=== PATIENT | male | born 1950 | race Caucasian/White ===

== ENCOUNTER 2018-03-31 23:34 | Inpatient (IN) ==
[~2018-03-31 23:34] MED LIST: Sodium Bicarbonate 8.4% Inj 50 MEQ/50 ML Syringe IV.CONT ONE
[2018-04-01 02:07] LABS: ABG Base Excess -6.4 mmol/L (-2-2); ABG PCO2 41 mmHg (38-42); ABG PO2 178 mmHG (61-120)
[2018-04-01] MEDS ORDERED: Bisacodyl 10 MG Supp RECTAL PRN (02:59)
[2018-04-01] MEDS ORDERED: fentaNYL Citrate Inj 100 MCG/2 ML Ampul IV PUSH PRN (02:59)
--- NOTE | 2018-04-01 03:10 | P.HPCC ---
History of Present Illness Service: Critical care medicine Primary Care Physician: UNKNOWN Chief Complaint: Cardiac arrest History of Present Illness: 67-year-old Hungarian-speaking male with past medical history of hemorrhagic stroke, essential hypertension, hyperlipidemia, GERD, iron deficiency anemia, depression who presented to [facility] after V. fib cardiac arrest. Apparently he was found unresponsive at the correction and CPR was initiated. He was in V. fib upon [facility] arrival. Per report from ED physician, patient received 5 doses of epinephrine and at least 5 shocks per [facility] and amiodarone 300 mg IV bolus. Upon arrival to the [place] emergency department, he remained in V. fib and was given 2 doses of epinephrine 5 mg IV each, amiodarone 100 mg IV, and additional defibrillation. He then had return of spontaneous circulation. He had an additional cardiac arrest in the emergency department which again responded to epinephrine. Transferred to [facility] was requested. I was informed that total duration of ACLS was 40 minutes. He was placed on epinephrine and phenylephrine prior to transfer. Records indicate that he has been a resident at [facility] since and that he was transferred there from another correction facility. He is wheelchair-bound at baseline. Records indicate that he is full code. There is no detailed advanced directive. - Diagnosis (1) Intracerebral hemorrhage (2) Respiratory failure (3) Ischemic hepatitis (4) LARS (acute kidney injury) (5) Coagulopathy (6) Hypernatremia (7) Hypokalemia (8) Hypophosphatemia (9) Cardiac arrest with ventricular fibrillation (10) Anoxia of brain Inpatient Certification: I certify that the inpatient services were ordered in accordance with Medicare regulations governing the order. This includes certification that hospital inpatient services are reasonable and necessary and in the case of services not specified as inpatient-only under 42 CFR 419.22(n), that they are appropriately provided as inpatient services in accordance to with the 2-midnight benchmark under 43 CFR 412.3(e) Estimated Total Length of Stay (Days): 7 Plans for Post Hospital Care: Not yet determined Review of Systems All other systems reviewed negative except as stated in HPI PMFSH - History History Provided By: Medical Record - Medical / Surgical Hx Neg / Unobtainable Surgical History: Unable to Obtain - Medical History Medical History: Medical History (Last Updated 04/01/18 @ 03:27 by Estefania Caputo MD) Depression GERD (gastroesophageal reflux disease) HLD (hyperlipidemia) HTN (hypertension) Iron deficiency anemia CVA (cerebral vascular accident) - Family History Family History: Family History (Last Updated 04/01/18 @ 03:27 by Estefania Caputo MD) Other Family history unobtainable due to patient's condition - Tobacco History Smoking Status: Unknown if ever smoked Medications and Allergies Active Medications: Active Medications Al Hydroxide/Mg Hydroxide (Milk Of Magnesia Liq) 30 ml PO Q12H PRN PRN Reason: Mild Constipation Albuterol (Albuterol Neb (Wendy)) 2.5 mg NEB Q2HR NEB PRN PRN Reason: SHORTNESS OF BREATH/WHEEZING Bisacodyl (Dulcolax Supp) 10 mg RECTAL DAILY PRN PRN Reason: SEVERE CONSITIPATION Chlorhexidine Gluconate (Chlorhexidine 2% Cloth) 3 pack TOPICAL DAILY@0400 WENDY Stop: 04/06/18 03:59 Chlorhexidine Gluconate (Chlorhexidine 2% Cloth) 3 pack TOPICAL DAILY@0400 PRN PRN Reason: Extra cloth needed Stop: 04/06/18 03:59 Fentanyl Citrate (Fentanyl Inj) 50 mcg IV PUSH Q1H PRN PRN Reason: Pain scale 6-10, &/or sedation Phenylephrine HCl 160 mg/ (Sodium Chloride) 500 mls @ 7.5 mls/hr IV.CONT TITRATE PRN; Protocol PRN Reason: Per Protocol Epinephrine HCl 4 mg/ Dextrose 250 mls @ 11.25 mls/hr IV.CONT TITRATE PRN; Protocol PRN Reason: Per Protocol Amiodarone HCl 450 mg/ (Dextrose) 250 mls @ 33.33 mls/hr IV.CONT TITRATE PRN; Protocol PRN Reason: Per Protocol Lactulose (Lactulose Liq) 30 ml PO DAILY PRN PRN Reason: SEVERE CONSITIPATION Ondansetron HCl (Zofran Inj) 4 mg IV.PUSH Q6H PRN PRN Reason: NAUSEA OR VOMITING Pantoprazole Sodium (Protonix Inj) 40 mg IV.PUSH DAILY WENDY Senna/Docusate Sodium (Barbara-Colace) 1 tab PO BID WENDY Sennosides (Senokot) 17.2 mg PO Q12H PRN PRN Reason: Moderate Constipation Sodium Chloride (Ns Flush) 2 ml IV.FLUSH BID WENDY Sodium Chloride (Ns Flush) 2 ml IV.FLUSH PRN PRN PRN Reason: FLUSH AFTER USING IV ACCESS Terbutaline Sulfate (Brethine Inj) 1 mg SQ UNSCH PRN PRN Reason: For Extravasation Allergies Allergy/AdvReac Type Severity Reaction Status Date / Time No Known Allergies Allergy Verified 03/31/18 23:56 Results - Labs CBC & Chem 7: 04/01/18 02:37 04/01/18 02:37 Exam Narrative: GENERAL: Thin well-developed male who is intubated. He has no sedative medication administration documented. SKIN: cool, dry. HEAD: Atraumatic. Normocephalic. EYES: Pupils fixed, dilated. No scleral icterus. No injection or drainage. ENT: No nasal bleeding or discharge. Mucous membranes dry. NECK: Trachea midline. Unable to appreciate JVD, patient has EJ catheters. CARDIOVASCULAR: Regular rate and rhythm, sinus with rate in the 90s on the monitor. No murmurs rubs or gallops. RESPIRATORY: Orotracheally intubated with 7.5 endotracheal tube. Coarse bilateral breath sounds with basilar rales GASTROINTESTINAL: Abdomen soft, non-tender, nondistended. Bowel sounds hypoactive. : Cuevas MUSCULOSKELETAL: Extremities without clubbing, cyanosis, or edema. NEUROLOGICAL: No eye opening. No motor response to deep central or peripheral noxious stimuli. No corneal reflex. No cough. No gag. No oculocephalic reflex. Disconnected from mechanical ventilation and he has no spontaneous respiratory efforts. Caprini VTE Risk Assessment Caprini VTE Risk Assessment: Moderate/High Risk (score >= 2) Caprini Risk Assessment Model: Point Value = 1 Point Value = 2 Point Value = 3 Point Value = 5 Age 41-60 Minor surgery BMI > 25 kg/m2 Swollen legs Varicose veins or History of unexplained or recurrent spontaneous Oral contraceptives or hormone replacement Sepsis (< 1 month) Serious lung disease, including pneumonia (< 1 month) Abnormal pulmonary function Acute myocardial infarction Congestive heart failure (< 1 month) History of inflammatory bowel disease Medical patient at bed rest Age 61-74 Arthroscopic surgery Major open surgery (> 45 min) Laparoscopic surgery (> 45 min) Malignancy Confined to bed (> 72 hours) Immobilizing plaster cast Central venous access Age >= 75 History of VTE Family history of VTE Factor V Leiden Prothrombin [id number] Lupus anticoagulant Anticardiolipin antibodies Elevated serum homocysteine Heparin-induced thrombocytopenia Other congenital or acquired thrombophilia Stroke (< 1 month) Elective arthroplasty Hip, pelvis, or leg fracture Acute spinal cord injury (< 1 month) Prophylaxis Regimen: Total Risk Factor Score Risk Level Prophylaxis Regimen 0-1 Low Early ambulation 2 Moderate Order ONE of the following: *Sequential Compression Device (SCD) *Heparin 5000 units SQ BID 3-4 Higher Order ONE of the following medications: *Heparin 5000 units SQ TID *Enoxaparin/Lovenox 40 mg SQ daily (WT < 150 kg, CrCl > 30 mL/min) *Enoxaparin/Lovenox 30 mg SQ daily (WT < 150 kg, CrCl > 10-29 mL/min) *Enoxaparin/Lovenox 30 mg SQ BID (WT < 150 kg, CrCl > 30 mL/min) AND/OR *Sequential Compression Device (SCD) 5 or more Highest Order ONE of the following medications: *Heparin 5000 units SQ TID (Preferred with Epidurals) *Enoxaparin/Lovenox 40 mg SQ daily (WT < 150 kg, CrCl > 30 mL/min) *Enoxaparin/Lovenox 30 mg SQ daily (WT < 150 kg, CrCl > 10-29 mL/min) *Enoxaparin/Lovenox 30 mg SQ BID (WT < 150 kg, CrCl > 30 mL/min) AND *Sequential Compression Device (SCD) Assessment and Plan - Problem List (1) Intracerebral hemorrhage Code(s): I61.9 - Nontraumatic intracerebral hemorrhage, unspecified Status: Acute (2) Respiratory failure Code(s): J96.90 - Respiratory failure, unspecified, unspecified whether with hypoxia or hypercapnia Status: Acute (3) Ischemic hepatitis Code(s): K75.9 - Inflammatory liver disease, unspecified Status: Acute (4) LARS (acute kidney injury) Code(s): N17.9 - Acute kidney failure, unspecified Status: Acute (5) Coagulopathy Code(s): D68.9 - Coagulation defect, unspecified Status: Acute (6) Hypernatremia Code(s): E87.0 - Hyperosmolality and hypernatremia Status: Acute (7) Hypokalemia Code(s): E87.6 - Hypokalemia Status: Acute (8) Hypophosphatemia Code(s): E83.39 - Other disorders of phosphorus metabolism Status: Acute (9) Cardiac arrest with ventricular fibrillation Code(s): I46.9 - Cardiac arrest, cause unspecified; I49.01 - Ventricular fibrillation Status: Acute (10) Anoxia of brain Code(s): G93.1 - Anoxic brain damage, not elsewhere classified Status: Acute - Assessment and Plan Plan: NEURO: Cerebellar and intraventricular hemorrhage Hydrocephalus Cerebral anoxia History of hemorrhagic stroke Depression Nonambulatory at baseline Nonsurvivable intracerebral hemorrhage resulting in cardiac arrest. While clinical exam appears consistent with brain , he is currently hypothermic and must be rewarmed to at least 36 degrees to do formal evaluation. Then proceed with Nuclear brain flow study as he does not appear stable enough for apnea testing. Neurology consult to assist with brain determination. RESP: Acute respiratory failure Pulmonary edema PRVC, PEEP 10. Ventilator Bundle. Albuterol every 2 hours as needed CV: V. fib cardiac arrest Essential hypertension at baseline Hyperlipidemia Epinephrine drip, phenylephrine drip to maintain MAP >65. On pulse contour analysis, CI is 1.7 and SVR >2400. Will wean phenylephrine off. Has received a total of Amiodarone 450 mg IV a bolus at outside facility. Continue amiodarone drip Check electrolytes and replace as indicated. Serial lactic acid measurement. Obtain 2D echo GI: Ischemic hepatitis GERD Insert OG tube in place to low and minimal suction. Protonix 40 mill grams IV daily Bowel regimen Viral hepatitis panel FEN/RENAL: Acute anion gap metabolic acidemia secondary to lactic acidemia Acute kidney injury Hypernatremia Hypokalemia Hypophosphatemia Insert core temp cuevas. Monitor intake and output. Monitor electrolytes and replace as indicated per ICU electrolyte replacement protocol. Hypernatremic, Monitor for evidence of diabetes insipidus ID: Monitor for signs and symptoms of infection HEME: Coagulopathy No clinical indication to correct coagulopathy as patient has nonsurvivable ICH and otherwise no clinical evidence of bleeding. ENDO: Acute hyperglycemia Insulin drip algorithm #3. PROPH: SCDs for DVT prophylaxis. Protonix 40 mg IV daily for stress ulcer prophylaxis and history of GERD ACCESS: Right radial art line placed 04/01 #1. Left IJ central venous line placed 04/01 #1 I spoke with patient's brother, Xu Lynch, who states that he is the healthcare surrogate. I discussed with him that patient has non-survivable intracerebral hemorrhage and that brain is suspected. He states his brother wished to be FULL CODE and he wishes to continue FULL CODE status at this time but would like to come to the hospital and speak to us in person. FULL CODE. Patient is critically ill and arrived with profound hypotension with blood pressure 60s over 40s. He required emergent art line and central line placement as well as resuscitation and management of mechanical ventilation. His vasopressor requirements are now improving. CCT 60 minutes exclusive of separately billable procedures
--- NOTE | 2018-04-01 03:12 | P.PCN ---
Date of procedure: 04/01/18 Procedure: DATE: 04/01/18 PROCEDURE: Right radial arterial catheter placement INDICATION: Shock DETAILS OF PROCEDURE Damian test was performed and adequate collateral circulation was confirmed. The skin was cleansed with Chloraprep. Additional barrier precautions included large sterile drape, sterile gloves, sterile gown, face mask, and hat. On the first attempt, the artery was accessed with an Arrow radial art line kit. The guide wire was advanced. Using Seldinger technique 20 gauge arterial catheter was placed. The needle and guide wire apparatus was removed. The catheter was connected to a transducer line and flushed with saline. The video monitor displayed normal arterial wave forms. The catheter was secured with 2-0 silk. A sterile dressing with antibiotic disc was applied. ESTIMATED BLOOD LOSS: minimal COMPLICATIONS: None
--- NOTE | 2018-04-01 03:14 | P.PCN ---
Date of procedure: 04/01/18 Procedure: DATE: 04/01/18 CENTRAL LINE PLACEMENT: Left internal jugular vein. INDICATION: Central venous access CONSENT Patient is not capacitated for medical decision-making. Procedure was done emergently as patient is in profound shock and in need of central venous access. DESCRIPTION OF THE PROCEDURE The patient was placed in supine position, mild Trendelenburg. The skin was cleansed with Chloraprep with wide prep of left subclavian and left IJ site. Additional barrier precautions included large sterile drape, sterile gloves, sterile gown, face mask, and hat. 1 % lidocaine was used for local anesthesia. Initial attempt at left subclavian site was unsuccessful x2. Under direct ultrasound guidance and on single attempt, the left IJ vein was accessed with an introducer needle. The guide wire was advanced and the tract was dilated. Using Seldinger technique a 7 Czech 20 cm antimicrobial coated triple-lumen catheter was advanced to a depth of 18 centimeters. The guide wire was removed. All ports had good return of dark venous blood and flushed easily with saline. The central line was secured with 2.0 silk. A sterile dressing with antibiotic disc was applied. ESTIMATED BLOOD LOSS: Minimal COMPLICATIONS: No apparent complications. STAT chest x-ray demonstrates satisfactory central venous line position without apparent complication.
[2018-04-01 03:24] LABS: Hematocrit 42.9 % (39.0-51.0); Hemoglobin 13.9 gm/dL (13.0-17.0); Mean Corpuscular HGB Conc 32.5 % (32.0-36.0); Mean Corpuscular Hemoglobin 29.6 pg (27.0-34.0); Mean Corpuscular Volume 91.1 fL (80.0-100.0); Mean Platelet Volume 7.9 fL (7.0-11.0); Platelet Count 182 th/mm3 (150-450); Red Blood Count 4.71 mil/mm3 (4.50-5.90); Red Cell Distribution Width 15.7 % (11.6-17.2); White Blood Count 11.5 th/mm3 (4.0-11.0)
[2018-04-01 03:36] LABS: Activated Partial Thrombo Time 33.7 sec (23.4-31.7); INR 1.7 Ratio; Prothrombin Time 17.1 sec (9.8-11.6)
[2018-04-01] MEDS ORDERED: Atropine Inj 1 MG/10 ML Syringe ONE (03:41)
--- NOTE | 2018-04-01 03:42 | XR ---
EXAM DATE: 04/01/2018 3:36 AM EST AGE/SEX: 67 years / Male INDICATIONS: Left internal jugular central line placement. CLINICAL DATA: This is the patient's subsequent encounter. Patient reports that signs and symptoms h ave been present for 1 day and indicates a pain score of Nonresponsive. MEDICAL/SURGICAL HISTORY: Non-responsive. Non-responsive. COMPARISON: [facility], CHEST 1V SINGLE AP, 04/01/2018. . FINDINGS: A single AP view of the chest demonstrates the lungs to be symmetrically aerated with persistent bila teral airspace disease. Endotracheal tube remains appropriately positioned above the rom. Interval placement of a left IJ central venous catheter with the tip projecting over the central venous syste m. No pneumothorax. Heart size is normal. Osseous structures are intact. CONCLUSION: 1. Interval placement of a left IJ central venous catheter with the tip projecting over the central venous system. No pneumothorax. 2. Persistent bilateral prominent perihilar airspace disease. Electronically signed by: Gabriel Wyatt MD Board Certified Radiologist 04/01/2018 3:41 AM EST
[2018-04-01 03:50] LABS: Albumin 2.9 g/dL (3.4-5.0); Calcium 7.3 mg/dL (8.5-10.1); Carbon Dioxide 21.4 meq/L (21.0-32.0); Phosphorus 1.9 mg/dL (2.5-4.9)
[2018-04-01 03:53] LABS: Potassium 2.3 meq/L (3.5-5.1)
[2018-04-01] MEDS ORDERED: Chlorhexidine Gluconate 2% 1 Pack (2 Cloths) TOPICAL PRN (04:00)
[2018-04-01 04:23] LABS: Troponin I 3.29 ng/mL (0.02-0.05)
[2018-04-01] MEDS: Oral Hygiene Kit OROPHARYNG SCH ×3 (04:28→15:40)
[2018-04-01] MEDS ORDERED: Magnesium Sulfate Inj 2 GM in Sodium Chlor 0.9% Inj 96 ML IV.SIG PRN (04:40)
[2018-04-01] MEDS ORDERED: Potassium Chloride Liq 20 MEQ/15 ML UDC PO PRN ×2 (04:40)
[2018-04-01] MEDS ORDERED: Potassium Chlor 40 mEq Premix 40 MEQ/100 ML PIGGYBACK IV.SIG PRN ×2 (04:40)
[2018-04-01] MEDS ORDERED: Potassium Chlor 20 mEq Premix 20 MEQ/100 ML PIGGYBACK IV.SIG PRN ×2 (04:40)
[2018-04-01] MEDS ORDERED: Potassium Phosphate 500 MG Soluble Tablet PO PRN ×2 (04:40)
[2018-04-01] MEDS ORDERED: Magnesium Sulfate Inj 4 GM in Sodium Chlor 0.9% Inj 92 ML IV.SIG PRN (04:40)
[2018-04-01] MEDS ORDERED: Magnesium Oxide 400 MG Tablet PO PRN (04:40)
[2018-04-01] MEDS ORDERED: Sodium Phosphate Inj 30 MMOL in Sodium Chlor 0.9% Inj 250 ML IV.SIG PRN (04:40)
[2018-04-01] MEDS ORDERED: Dextrose 50% in Water 50 ML Vial IV.PUSH PRN (04:41)
--- NOTE | 2018-04-01 07:05 | CT ---
EXAM DATE: 04/01/2018 4:03 AM EST AGE/SEX: 67 years / Male INDICATIONS: Altered mental status; possible cerebral anoxia. CLINICAL DATA: This is the patient's initial encounter. Patient reports that signs and symptoms have been present for 1 day and indicates a pain score of Nonresponsive. MEDICAL/SURGICAL HISTORY: Congestive heart failure. Cerebrovascular disease. None. RADIATION DOSE: 56.35 CTDI (mGy) COMPARISON: . TECHNIQUE: CT of the head without contrast. Using automated exposure control and adjustment of the mA and/or kV according to patient size, radiation dose was kept as low as reasonably achievable to ob tain optimal diagnostic quality images. DICOM format image data is available electronically for revi ew and comparison. FINDINGS: Cerebrum: Ventricles are enlarged with a large amount of intraventricular blood. Some subarachnoid b lood is also present. Complete loss of teresa-white differentiation probably representing diffuse anoxi a. Periventricular edema.. Posterior Fossa: Again, large amount of intraventricular blood. Parenchymal hemorrhages centered on t he left cerebellar hemisphere Skull: The calvaria is intact. No evidence of skull fracture. Air-fluid level in the left sphenoid as well as in the nasopharynx may be related to intubation. CONCLUSION: 1. 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 Small amount of subarachnoid hemorrhage. Associated ventriculomegaly. 2. Periventricular edema with loss of the teresa-white differentiation may be related to diffuse anoxi a. . . Electronically signed by: Gabriel Wyatt MD Board Certified Radiologist 04/01/2018 4:55 AM EST
[2018-04-01 07:13] LABS: Hepatitits B Surface Antigen Nonreactive (Nonreactive)
[2018-04-01] MEDS: Chlorhexidine Gluconate 2% 1 Pack (2 Cloths) TOPICAL SCH (07:27)
[2018-04-01] MEDS: Phenylephrine Inj 160 MG in Sodium Chlor 0.9% Inj 484 ML IV.CONT PRN ×2 (07:33→19:42)
[2018-04-01] MEDS: Potassium Phosphate Inj 30 MMOL in Sodium Chlor 0.9% Inj 250 ML IV.SIG PRN ×2 (07:34→16:51)
[2018-04-01 07:42] LABS: Hepatitis A IgM Antibody Nonreactive (Nonreactive)
[2018-04-01] MEDS: Insulin Regular (For Infusion) 100 UNIT in Sodium Chlor 0.9% Inj 99 ML IV.CONT PRN ×2 (07:53→14:55)
[2018-04-01] MEDS: Chlorhexidine 0.12% Oral Kit 15 ML UDC OROPHARYNG SCH ×2 (08:59→20:55)
--- NOTE | 2018-04-01 09:08 | MB ---
cc: Vargas Rios MD, PhD DATE: 04/01/2018 REASON FOR CONSULTATION: Cerebral hemorrhage. HISTORY OF PRESENT ILLNESS: Mr. Maradiaga is a 67-year-old man who presented to [facility] after ventricular fibrillation cardiac arrest. He was found unresponsive at the detention and CPR was initiated. When he [facility] arrived, he was in ventricular fibrillation treated with ACLS protocol and amiodarone. When he arrived at the [facility], he was in VFib, received additional defibrillation, epinephrine, and amiodarone and return to spontaneous circulation. He had a CT of the brain done, which revealed extensive cerebral hemorrhage with intraparenchymal hemorrhage in the left cerebellar hemisphere with extension into the ventricular system as well as secondary hydrocephalus. There is also periventricular edema with loss of teresa-white differentiation possibly related to diffuse anoxia. Some subarachnoid blood was also identified. PAST MEDICAL HISTORY: Remarkable for history of hemorrhagic stroke in the past, hypertension, hyperlipidemia, GERD, iron deficiency anemia. CURRENT MEDICATIONS: Albuterol nebs amiodarone, Dulcolax, chlorhexidine, Fentanyl p.r.n., lactulose, Zofran, Protonix, phenylephrine potassium p.r.n. NEUROLOGIC EXAMINATION: VITAL SIGNS: His blood pressure is 96/73, pulse is 97, he is not breathing over the ventilator at all, currently intubated. Temperature 93.7 degrees. HIGHER CORTICAL FUNCTION: He is nonresponsive to voice or painful stimuli. Cranial nerve exam: The pupils are 4 mm bilaterally, nonreactive to light. Corneal reflexes are absent. On assessing oculocephalic maneuver, there is no significant eye movement to oculocephalics. Cold caloric testing was done bilaterally with absolutely no response. Gag is absent. Ciliospinal reflex is absent. On motor exam, he has no withdrawal to painful stimuli, no localization to pain. He had occasional [id number] head movement with painful stimuli, which appear to be mainly reflexic and not volitional at all. He has bilateral Babinski's. IMAGING DATA: CT of the brain as noted above. LABORATORY DATA: The white count is 11,500, hemoglobin 13.9, hematocrit 42.9%, platelet count 182,000. Sodium is 148, potassium 2.3, chloride 111, CO2 of 21.4, BUN is 13, creatinine 1.55, GFR 45, glucose 452, calcium 7.3, AST 1589, ALT 1540, alkaline phosphatase 106, albumin 2.9. Lactic acid 11.2. ABG; pH of 7.29, O2 saturation 97%, pO2 of 178, bicarbonate 19, pCO2 of 41. IMPRESSION: Extensive intraventricular hemorrhage which appears to arise from the cerebellum with extensive intraventricular involvement and subarachnoid component as well as anoxic encephalopathy. At this time, I do not find any significant brainstem reflexes on his examination. RECOMMENDATION: Prognosis is extremely poor given the patient's clinical exam. We will proceed with EEG testing. Vargas Rios MD, PhD NOE/chacha , 08:35 AM , 08:45 AM
[2018-04-01] MEDS: Pantoprazole Inj 40 MG Vial IV.PUSH SCH (10:29)
--- NOTE | 2018-04-01 12:54 | MG ---
cc: Vargas Rios MD, PhD TEST NUMBER: [id number] TECHNIQUE: A 17-channel EEG. DESCRIPTION: The background activity is basically silent. There is some minimal activity initially of extremely low amplitude of about 1 microvolts, but the remaining of the tracing is silent. Photic stimulation was done with no significant driving response. No lateralizing features seen. No epileptiform discharges. INTERPRETATION: Extremely abnormal study with a severely attenuated and for the most part silent tracing consistent with severe encephalopathy. Vargas Rios MD, PhD NOE/constantino , 12:35 PM , 12:41 PM
[2018-04-01] MEDS: Senna/Docusate Sodium 8.6/50 MG Tablet PO SCH ×2 (13:24→23:55)
--- NOTE | 2018-04-01 15:27 | P.EN ---
I had a long conversation with the patient's brother and [id number] today regarding Javier's condition. We spoke using the video translation service. I explained that Javier has a large amount of bleeding around his brainstem and has sustained a prolonged cardiac arrest. We discussed that his neurological exam is very abnormal, and that I do not feel that he has any reasonable chance to have a functionally independent recovery. We discussed several options moving forward, including 1) aggressive care, including trach/ PEG if patient is stable enough for procedures, and I explained that he will be dependent on "life support" including a ventilator indefinitely; 2) continued current care with no escalation; 3) transition to comfort care. The patient's brother says that the only conversation they've had in the past regarding end of life care was that Javier wanted his brother to make decisions for him. His brother and [id number] would like to discuss these options before making any decisions on goals of care. The patient remains a full code at this time. I have consulted palliative care to help with ongoing discussions.
--- NOTE | 2018-04-01 15:44 | ECG ---
Date Performed: 04/01/2018 Time Performed: 02:52:40 PTAGE: 67 years EKG: Sinus rhythm . Possible left ventricular hypertrophy Inferior/lateral ST-T changes are probably due to ventricular hypertrophy Abnormal ECG Compared to PREVIOUS TRACING , rate has increased with some normalization of QRS, but persistent ST s egment depression. Could be due to hypertrophy. Cannot rule out ischemia, clinical correlation recomm ended. PREVIOUS TRACIN04/01/2018 00.07.54 DOCTOR: Jose Lyles Interpretating Date/Time 04/01/2018 15:42:25
[2018-04-01 16:16] LABS: Phosphorus 0.7 mg/dL (2.5-4.9)
[2018-04-01 16:18] LABS: Potassium 2.5 meq/L (3.5-5.1)
--- NOTE | 2018-04-01 16:31 | P.PNPAL ---
pt seen in room, unresponsive on vent. D/w RN, d/w Dr Carlton. Called relative Xu Lynch. He understands some basic Belgian but is more comfortable speaking Bangladeshi. In Bangladeshi he told me he had talked with a doctor already who explained things to him. He is agreeable to meet tomorrow around 11 or 12.
--- NOTE | 2018-04-01 17:49 | ECHRPT ---
Indication: shortness of breath CONCLUSIONS The left ventricular systolic function is severely reduced with an estimated ejection fraction in th e range of 20-25%. There is global left ventricular dysfunction. Akinetic mid-anterior septal wall motion. There is mild tricuspid valve regurgitation. BP: / HR: Rhythm: MEASUREMENTS (Male / Female) Normal Values Technical Quality:Very technically difficult study 2D ECHO LV Diastolic Diameter PLAX 2.6 cm 4.2 - 5.9 / 3.9 - 5.3 cm LV Systolic Diameter PLAX 2.4 cm IVS Diastolic Thickness 0.7 cm 0.6 - 1.0 / 0.6 - 0.9 cm LVPW Diastolic Thickness 1.1 cm 0.6 - 1.0 / 0.6 - 0.9 cm LV Relative Wall Thickness 0.7 RV Internal Dim ED PLAX 1.7 cm LVOT Diameter 1.5 cm Aortic Root Diameter 2.0 cm LA Systolic Diameter LX 1.8 cm 3.0 - 4.0 / 2.7 - 3.8 cm M-MODE Aortic Root Diameter MM 3.2 cm LA Systolic Diameter MM 2.5 cm LA Ao Ratio MM 0.8 AV Cusp Separation MM 1.8 cm DOPPLER AV Peak Velocity 160.0 cm/s AV Peak Gradient 10.2 mmHg LVOT Peak Velocity 60.2 cm/s LVOT Peak Gradient 1.4 mmHg AV Area Cont Eq pk 0.7 cm Mitral E Point Velocity 51.3 cm/s Mitral A Point Velocity 34.6 cm/s Mitral E to A Ratio 1.5 TR Peak Velocity 267.0 cm/s TR Peak Gradient 28.5 mmHg Right Atrial Pressure 10.0 mmHg Pulmonary Artery Systolic Pressu 38.5 mmHg Right Ventricular Systolic Press 38.5 mmHg PV Peak Velocity 66.5 cm/s PV Peak Gradient 1.8 mmHg FINDINGS LEFT VENTRICLE Normal left ventricular size. Wall thickness is normal. The left ventricular systolic function is severely reduced with an estimated ejection fraction in th e range of 20-25%. There is global left ventricular dysfunction. Akinetic mid-anterior septal wall motion. RIGHT VENTRICLE Grossly normal LEFT ATRIUM The left atrial size is normal. RIGHT ATRIUM The right atrial size is normal. ATRIAL SEPTUM Normal atrial septal thickness AORTA The aortic root and proximal ascending aorta are normal in size on limited imaging. MITRAL VALVE Structurally normal mitral valve. No mitral valve stenosis or regurgitation. AORTIC VALVE Trileaflet aortic valve. No aortic valve stenosis or regurgitation. TRICUSPID VALVE Structurally normal tricuspid valve. There is mild tricuspid valve regurgitation. No tricuspid valve stenosis. PULMONARY VALVE No pulmonary valve regurgitation or stenosis. VESSELS The inferior vena cava is normal in size. PERICARDIUM No pericardial effusion. David Wilks DO (Electronically Signed) Final Date:01 April 2018 17:48
[2018-04-01] MEDS ORDERED: DOPamine Inj 1,600 MG in Sodium Chlor 0.9% Inj 210 ML IV.CONT PRN (20:17)
[2018-04-01 20:49] LABS: ABG Base Excess -5.5 mmol/L (-2-2); ABG PCO2 34 mmHg (38-42); ABG PO2 141 mmHg (61-120)
[2018-04-01] MEDS: Norepinephrine Inj 16 MG in Sodium Chlor 0.9% Inj 234 ML IV.CONT PRN (20:50)
[2018-04-02] MEDS: Oral Hygiene Kit OROPHARYNG SCH ×3 (00:59→11:20)
[2018-04-02 04:50] LABS: Baso % (Auto) 0.3 % (0.0-2.0); Eos # (Auto) 0.2 th/mm3 (0.0-0.4); Eos % (Auto) 1.8 % (0.0-4.0); Hematocrit 40.2 % (39.0-51.0); Hemoglobin 13.3 gm/dL (13.0-17.0); Lymph # (Auto) 3.5 th/mm3 (1.0-4.8); Lymph % (Auto) 27.9 % (9.0-44.0); Mean Corpuscular HGB Conc 33.2 % (32.0-36.0); Mean Corpuscular Hemoglobin 29.4 pg (27.0-34.0); Mean Corpuscular Volume 88.8 fL (80.0-100.0); Mean Platelet Volume 8.2 fL (7.0-11.0); Mono # (Auto) 0.5 th/mm3 (0.0-0.9); Mono % (Auto) 3.8 % (0.0-8.0); Neut # (Auto) 8.3 th/mm3 (1.8-7.7); Neut % (Auto) 66.2 % (16.0-70.0); Platelet Count 104 th/mm3 (150-450); Red Blood Count 4.53 mil/mm3 (4.50-5.90); Red Cell Distribution Width 15.5 % (11.6-17.2); White Blood Count 12.6 th/mm3 (4.0-11.0)
[2018-04-02 05:09] LABS: Activated Partial Thrombo Time 45.6 sec (23.4-31.7); Prothrombin Time 20.6 sec (9.8-11.6)
[2018-04-02 05:45] LABS: Albumin 2.1 g/dL (3.4-5.0); Calcium 6.7 mg/dL (8.5-10.1); Carbon Dioxide 19.3 meq/L (21.0-32.0); Magnesium 0.9 mg/dL (1.5-2.5); Phosphorus 3.9 mg/dL (2.5-4.9); Potassium 3.9 meq/L (3.5-5.1); Total Protein 4.8 g/dL (6.4-8.2)
[2018-04-02] MEDS: Chlorhexidine Gluconate 2% 1 Pack (2 Cloths) TOPICAL SCH (06:10)
--- NOTE | 2018-04-02 06:56 | P.PNCC ---
Subjective Subjective Remarks/Hospital Course: 67-year-old Bulgarian-speaking male with past medical history of hemorrhagic stroke, essential hypertension, hyperlipidemia, GERD, iron deficiency anemia, depression who presented to [facility] after V. fib cardiac arrest. Apparently he was found unresponsive at the [facility] and CPR was initiated. He was in V. fib upon [facility] arrival. Per report from ED physician, patient received 5 doses of epinephrine and at least 5 shocks per [facility] and amiodarone 300 mg IV bolus. Upon arrival to the [place] emergency department, he remained in V. fib and was given 2 doses of epinephrine 5 mg IV each, amiodarone 100 mg IV, and additional defibrillation. He then had return of spontaneous circulation. He had an additional cardiac arrest in the emergency department which again responded to epinephrine. Transferred to [facility] was requested. I was informed that total duration of ACLS was 40 minutes. He was placed on epinephrine and phenylephrine prior to transfer. Records indicate that he has been a resident at [facility] in [place] since and that he was transferred there from another [facility] facility. He is wheelchair-bound at baseline. Records indicate that he is full code. There is no detailed advanced directive. 04/02: Patient has intermittent movement of head back and forth which does not appear to be purposeful. Cold calorics were tested yesterday with neurologist and patient had no response. He continues to have no cough, gag, or corneal reflexes. He also continues to have persistent hypotension requiring multiple pressors. Family meeting scheduled for today with palliative care around 11 AM. Objective Vital Signs / I&O: Vital Signs 04/01/18 07:36 04/01/18 08:00 04/01/18 10:46 Temperature 93.7 F L Pulse Rate 94 H Respiratory Rate 20 20 20 Blood Pressure 96/73 L Pulse Oximetry 98 98 99 04/01/18 12:00 04/01/18 13:15 04/01/18 16:00 Temperature 99.2 F 99.6 F Pulse Rate 98 H 99 H Respiratory Rate 20 20 20 Blood Pressure 101/79 93/67 L Pulse Oximetry 99 99 04/01/18 16:55 04/01/18 20:00 04/01/18 20:30 Temperature 99 F Pulse Rate 99 H Respiratory Rate 20 20 21 Blood Pressure 89/63 L Pulse Oximetry 98 98 99 04/01/18 22:42 04/02/18 00:00 04/02/18 00:29 Temperature 98.3 F Pulse Rate 91 H Respiratory Rate 20 20 20 Blood Pressure 111/55 L Pulse Oximetry 99 98 98 04/02/18 03:40 04/02/18 04:00 Temperature 97.6 F Pulse Rate 90 84 Respiratory Rate 20 20 Blood Pressure 118/50 L Pulse Oximetry 98 98 Intake & Output 04/01/18 04/01/18 04/02/18 06:59 18:59 06:59 Intake Total 0 / 0 3860 / 3860 1250 / 1250 Output Total 2225 / 2225 900 / 900 160 / 160 Balance -2225 / -2225 2960 / 2960 1090 / 1090 Weight 63.5 kg 71 kg Intake: IV 2860 / 2860 1250 / 1250 Cordarone Inj 450 MG In D5W Inj 250 / 250 250 / 250 241 ML @ 1 MG/MIN 33.33 mls/hr IV.CONT TITRATE PRN Rx#: [id number] EPINEPHrine (1:1000) Inj 4 MG 250 / 250 500 / 500 In D5W Inj 246 ML @ 3 MCG/MIN 11.25 mls/hr IV.CONT TITRATE PRN Rx#:[id number] NovoLIN R (IV Infusion) 100 100 / 100 UNIT In NS Inj 99 ML @ Per Protocol IV.CONT TITRATE PRN Rx #:[id number] Neosynephrine Inj 160 MG In NS 500 / 500 Inj 484 ML @ 40 MCG/MIN 7.5 mls /hr IV.CONT TITRATE PRN Rx#: [id number] LR 1000 mL Inj 1,000 ML @ Wide 1999 / 1999 Open IV.SIG BOLUS ONE Rx#: [id number] Potassium Phosphate Inj 30 MMOL 260 / 260 In NS Inj 250 ML @ 42 mls/hr IV.SIG UNSCH PRN Rx#:[id number] Oral 0 / 0 0 / 0 Other 1000 / 1000 Output: Urine Amount (Catheter) 2225 / 2225 850 / 850 110 / 110 Indwelling Temp Sensing 2225 / 2225 850 / 850 110 / 110 Catheter Gastric Drainage 50 / 50 50 / 50 Oral Orogastric Tube 50 / 50 50 / 50 Other: Other Intake Source Saline Solution # Bowel Movements 0 0 Weight On Admission 63.5 kg Result Diagrams: 04/02/18 04:05 04/02/18 04:05 Objective Remarks: GEN: Ill-appearing elderly male, intubated and sedated HEENT: No cough, gag, or corneal reflexes, non-purposeful side to side movement of head intermittently NECK: Trachea midline CARDIO: Regular rate and rhythm PULM: Mechanical breath sounds bilaterally ABD/GI: Soft, non-distended EXT/MSK: Trace to 1+ peripheral edema SKIN: No rashes or lesions NEURO: GCS 3T ([id number]), does not withdraw extremities to noxious stimuli, no cough/ gag/ corneal reflexes, pupils 6 mm and non-reactive bilaterally PSYCH: Unable to assess Assessment and Plan - Assessment and Plan Plan: NEURO: Cerebellar and intraventricular hemorrhage Obstructive hydrocephalus Cerebral anoxia History of hemorrhagic stroke Depression Nonambulatory at baseline Nonsurvivable intracerebral hemorrhage resulting in cardiac arrest The patient has no brain stem reflexes but occasionally has non-purposeful movements of his head. I do not feel that he is stable enough for brain flow study. Neurology following, EEG yesterday showed "extremely abnormal study with a severely attenuated and for the most part silent tracing consistent with severe encephalopathy" RESP: Acute respiratory failure Pulmonary edema PRVC, PEEP 10. Ventilator Bundle. Albuterol every 2 hours as needed CV: V. fib cardiac arrest Essential hypertension at baseline Hyperlipidemia Currently on norepinephrine gtt @ 11, epinephrine gtt @ 10, and phenylephrine gtt @ 200 for goal MAP > 65 mmHg * Hemodynamics: MAP 70, CI 0.7, CO 1.5, SVF 3220, SVV 26 * Will try to decrease phenylephrine and increase epi/ norepi/ add dobutamine if still hypotensive to decrease afterload and increase inotropy Remains on amiodarone gtt, currently in NSR 2D echo showed severe systolic dysfunction with EF of 20-25%, global LV dysfunction, akinetic mid-anterior septal wall, mild TR, PAP 38.5 mmHg GI: Ischemic hepatitis GERD OGT to LIWS. Protonix 40 mg IV qday Bowel regimen Viral hepatitis panel non-reactive FEN/RENAL: Acute anion gap metabolic acidemia secondary to lactic acidemia Acute kidney injury Hypernatremia Hypokalemia Hypophosphatemia Worsening hypernatremia and hyperchloremia; will start D5 1/2 NS @ 100 mL/hr Recheck lactate this AM- likely slow to clear due to cardiogenic shock and shock liver BUN/ creat trending up with oliguria overnight, IVF as outlined above, likely secondary to prolonged cardiac arrest Check afternoon labs ID: Monitor for signs and symptoms of infection HEME: Coagulopathy No clinical indication to correct coagulopathy as patient has nonsurvivable ICH and otherwise no clinical evidence of bleeding. ENDO: Acute hyperglycemia Change insulin drip to sliding scale PROPH: SCDs for DVT prophylaxis. Protonix 40 mg IV daily for stress ulcer prophylaxis and history of GERD ACCESS: Right radial art line placed 04/01 #2. Left IJ central venous line placed 04/01 #2 OVERALL: This patient remains critically ill and unstable. He requires continued ICU level of care. He has a very poor prognosis. Family meeting planned today for 11 AM with myself and palliative care service. Counseling/ Coordination of Care: This patient is critically ill with impairment of one or more vital organ systems with a high probability of imminent or life-threatening deterioration. High-complexity medical decision making was required to support vital organ function and/ or prevent deterioration of the patient's condition. Total critical care time spent is 44 minutes giving full attention to this patient. This includes examining the patient, gathering history from someone other than the patient (i.e. chart review), discussing the patient's care with other providers, managing the patient's blood pressure and ventilator settings, ordering and interpreting radiologic studies, ordering and interpreting laboratory values, titration of multiple vasoactive drips, re-evaluation at frequent intervals, and documentation. Amount of time is separate from teaching, counseling the patient and/or family, and exclusive of procedures. To help prompt me to consider important information that might be impacting today's encounter and assessment, information from prior notes written by myself or my colleagues may have been "brought forward" into today's note. My signature on this note, however, is an attestation that I personally performed the exam, history, and/or decision-making noted today, and, unless otherwise indicated, the interactions with patient, family, and staff as well as the review of records all occurred today. I also attest that the listed assessment and stated plan reflect my best clinical judgment today based on the combination of historical information, prior notes, and today's exam/ interactions. Code Status: Full
[2018-04-02] MEDS: Dextrose 5%/NaCl 0.45% Inj 1,000 ML IV.CONT SCH ×2 (07:36→17:40)
[2018-04-02] MEDS: Chlorhexidine 0.12% Oral Kit 15 ML UDC OROPHARYNG SCH (07:48)
[2018-04-02] MEDS: DOPamine 800 MG/500 ML Premix 800 MG/500 ML PLAST..BAG IV.CONT PRN (08:13)
[2018-04-02] MEDS: Phenylephrine Inj 160 MG in Sodium Chlor 0.9% Inj 484 ML IV.CONT PRN (08:21)
[2018-04-02] MEDS: Senna/Docusate Sodium 8.6/50 MG Tablet PO SCH (08:42)
[2018-04-02] MEDS: Pantoprazole Inj 40 MG Vial IV.PUSH SCH (08:42)
--- NOTE | 2018-04-02 10:51 | P.CONPAL ---
Consult Service: Palliative Care Requesting Physician: Nela Carlton Reason for Consult: a. To assist with evaluation and management of symptoms including: encephalopathy, dyspnea b. To assist medical decision maker(s) with: better understanding of current medical conditions; weighing benefits/burdens of medical treatment options; making medical treatment decisions. Primary Care Provider: UNKNOWN History of Present Illness History of Present Illness: This is a 67 y/o male with who presented to [facility] 03/31 in cardiac arrest after being found down at assisted. CPR was done and he was found to be in v fib when EMS arrived. Reportedly during transport pt received mult doses epi, 5 shocks, amiodarone bolus; received subsequent epi x 2, amiodarone and defibrillation at ER and then had ROSC. He subsequently when into cardiac arrest and was given epi. per CCM ACLS lasted 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 EKG showed ST depression. EEG extremely abnormal, mostly silent tracing, consistent with severe encephalopathy. Pt seen in room. He is intubated and unresponsive. Pupils fixed and dilated, no withdrawal to pain. Per neuro and CCM no cough, gag reflex. Extremely abnormal EEG, mostly silent, consistent with severe encephalopathy. Function/Cognitive Trajectory: Wheelchair bound at baseline. [facility] resident for at least the last year. Review of Systems unobtainable due to endotracheal tube, unobtainable due to mental status Neurologic: Reports sensory deficit PMFSH - History History Provided By: Medical Record - Medical History Medical History: Medical History (Last Reviewed 04/01/18 @ 07:07 by Nela Carlton DO) Depression GERD (gastroesophageal reflux disease) HLD (hyperlipidemia) HTN (hypertension) Iron deficiency anemia CVA (cerebral vascular accident) - Family History Family History: Family History (Last Reviewed 04/01/18 @ 07:07 by Nela Carlton DO) Other Family history unobtainable due to patient's condition - Tobacco History Smoking Status: Unknown if ever smoked Medications and Allergies Active Medications: Active Medications Al Hydroxide/Mg Hydroxide (Milk Of Magnesia Liq) 30 ml PO Q12H PRN PRN Reason: Mild Constipation Albuterol (Albuterol Neb (Prn)) 2.5 mg NEB Q2HR NEB PRN PRN Reason: SHORTNESS OF BREATH/WHEEZING Albuterol (Duoneb Neb (Wendy)) 1 ampul NEB Q6HR NEB [facility] Last Admin: 04/02/18 08:04 Dose: 1 ampul Bisacodyl (Dulcolax Supp) 10 mg RECTAL DAILY PRN PRN Reason: SEVERE CONSITIPATION Chlorhexidine Gluconate (Chlorhexidine 2% Cloth) 3 pack TOPICAL DAILY@0400 WENDY Stop: 04/06/18 03:59 Last Admin: 04/02/18 06:10 Dose: 3 pack Chlorhexidine Gluconate (Chlorhexidine 2% Cloth) 3 pack TOPICAL DAILY@0400 PRN PRN Reason: Extra cloth needed Stop: 04/06/18 03:59 Chlorhexidine Gluconate (Peridex 0.12% Oral Kit) 15 ml OROPHARYNG BID@0800, 2000 [facility] Last Admin: 04/02/18 07:48 Dose: 15 ml Dextrose (D50w Vial) 50 ml IV.PUSH UNSCH PRN PRN Reason: PER HYPOGLYCEMIA PROTOCOL Last Admin: 04/02/18 01:07 Dose: 50 ml Fentanyl Citrate (Fentanyl Inj) 50 mcg IV PUSH Q1H PRN PRN Reason: Pain scale 6-10, &/or sedation Glucagon (Glucagon Inj) 1 mg OTHER PRN PRN PRN Reason: for Hypoglycemia Protocol Phenylephrine HCl 160 mg/ (Sodium Chloride) 500 mls @ 7.5 mls/hr IV.CONT TITRATE PRN; Protocol PRN Reason: Per Protocol Last Titration: 04/02/18 09:03 Dose: 130 mcg/min, 24.37 mls/hr Epinephrine HCl 4 mg/ Dextrose 250 mls @ 11.25 mls/hr IV.CONT TITRATE PRN; Protocol PRN Reason: Per Protocol Last Admin: 04/02/18 10:12 Dose: 10 mcg/min, 37.5 mls/hr Amiodarone HCl 450 mg/ (Dextrose) 250 mls @ 33.33 mls/hr IV.CONT TITRATE PRN; Protocol PRN Reason: Per Protocol Last Titration: 04/02/18 07:21 Dose: 0.5 mg/min, 16.66 mls/hr Magnesium Sulfate 4 gm/ Sodium (Chloride) 100 mls @ 50 mls/hr IV.SIG UNSCH PRN PRN Reason: For Magnesium 0.9 - 1.1 mg/dL Magnesium Sulfate 2 gm/ Sodium (Chloride) 100 mls @ 50 mls/hr IV.SIG UNSCH PRN PRN Reason: For Magnesium 1.2 - 1.6 mg/dL Potassium Chloride (Kcl 40 Meq Premix Inj) 40 meq in 100 mls @ 25 mls/hr IV.SIG Q2H PRN PRN Reason: For Potassium 2.8 - 3.2 mEq/L Last Admin: 04/01/18 16:25 Dose: 25 mls/hr Potassium Chloride (Kcl 20 Meq Premix Inj) 20 meq in 100 mls @ 50 mls/hr IV.SIG Q2H PRN PRN Reason: For Potassium 3.3 - 3.5 mEq/L Potassium Chloride (Kcl 40 Meq Premix Inj) 40 meq in 100 mls @ 25 mls/hr IV.SIG UNSCH PRN PRN Reason: For Potassium 3.3 - 3.5 mEq/L Potassium Phosphate 30 mmol/ (Sodium Chloride) 260 mls @ 42 mls/hr IV.SIG UNSCH PRN PRN Reason: SEE LABEL COMMENTS Last Admin: 04/01/18 16:51 Dose: 42 mls/hr Sodium Phosphate 30 mmol/ (Sodium Chloride) 260 mls @ 42 mls/hr IV.SIG UNSCH PRN PRN Reason: For Phosphorus < 2.5 mg/dL Potassium Chloride (Kcl 20 Meq Premix Inj) 20 meq in 100 mls @ 50 mls/hr IV.SIG Q2H PRN PRN Reason: For Potassium 2.8 - 3.2 mEq/L Insulin Human Regular 100 unit (/ Sodium Chloride) 100 mls @ 0 mls/hr IV.CONT TITRATE PRN; Protocol PRN Reason: See protocol Last Titration: 04/02/18 07:21 Dose: 0 units/hr, 0 mls/hr Norepinephrine Bitartrate 16 (mg/ Sodium Chloride) 250 mls @ 1.87 mls/hr IV.CONT TITRATE PRN; Protocol PRN Reason: See Protocol Last Titration: 04/02/18 08:26 Dose: 15 mcg/min, 14.06 mls/hr Dopamine HCl/Dextrose (Dopamine 800 Mg/500 Ml Premix) 800 mg in 500 mls @ 7.819 mls/hr IV.CONT TITRATE PRN; Protocol PRN Reason: Per Protocol Last Titration: 04/02/18 08:28 Dose: 5 mcg/kg/min, 13.03 mls/hr Dextrose/Sodium Chloride (D5w/1/2 Ns Inj) 1,000 mls @ 100 mls/hr IV.CONT .Q10H [facility] Last Admin: 04/02/18 07:36 Dose: 100 mls/hr Lactulose (Lactulose Liq) 30 ml PO DAILY PRN PRN Reason: SEVERE CONSITIPATION Magnesium Oxide (Mag-Ox) 800 mg PO UNSCH PRN PRN Reason: For Magnesium 1.2 - 1.6 mg/dL Miscellaneous Medication () 1 each OROPHARYNG 0000,0400,1200,1600 [facility] Last Admin: 04/02/18 06:11 Dose: 1 each Ondansetron HCl (Zofran Inj) 4 mg IV.PUSH Q6H PRN PRN Reason: NAUSEA OR VOMITING Pantoprazole Sodium (Protonix Inj) 40 mg IV.PUSH DAILY [facility] Last Admin: 04/02/18 08:42 Dose: 40 mg Potassium Chloride (Kcl Liq) 40 meq PO UNSCH PRN PRN Reason: Potassium level 3.3-3.5 mEq/L Potassium Chloride (Kcl Liq) 40 meq PO UNSCH PRN PRN Reason: POTASSIUM LESS THAN 3.5 Potassium Phosphate (K-Phos Original) 2,000 mg PO Q4H PRN PRN Reason: Phosphorus Less Than 2.5 mg/dL Potassium Phosphate (K-Phos Original) 2,000 mg PO UNSCH PRN PRN Reason: SEE LABEL COMMENTS Senna/Docusate Sodium (Barbara-Colace) 1 tab PO BID [facility] Last Admin: 04/02/18 08:42 Dose: 1 tab Sennosides (Senokot) 17.2 mg PO Q12H PRN PRN Reason: Moderate Constipation Sodium Chloride (Ns Flush) 2 ml IV.FLUSH BID [facility] Last Admin: 04/02/18 09:57 Dose: 2 ml Sodium Chloride (Ns Flush) 2 ml IV.FLUSH PRN PRN PRN Reason: FLUSH AFTER USING IV ACCESS Last Admin: 04/02/18 08:43 Dose: 2 ml Terbutaline Sulfate (Brethine Inj) 1 mg SQ UNSCH PRN PRN Reason: Extravasation Allergies Allergy/AdvReac Type Severity Reaction Status Date / Time No Known Allergies Allergy Verified 03/31/18 23:56 Advance Directives Living Will: No Healthcare Surrogate: No Power of Senior Sustainability Advisor: No Physical Exam Vital Signs: Vital Signs - 24 hr 04/01/18 10:46 04/01/18 12:00 04/01/18 13:15 Temperature 99.2 F Pulse Rate 98 H Respiratory Rate 20 20 20 Blood Pressure 101/79 Pulse Oximetry 99 99 99 04/01/18 16:00 04/01/18 16:55 04/01/18 20:00 Temperature 99.6 F 99 F Pulse Rate 99 H 99 H Respiratory Rate 20 20 20 Blood Pressure 93/67 L 89/63 L Pulse Oximetry 98 98 04/01/18 20:30 04/01/18 22:42 04/02/18 00:00 Temperature 98.3 F Pulse Rate 91 H Respiratory Rate 21 20 20 Blood Pressure 111/55 L Pulse Oximetry 99 99 98 04/02/18 00:29 04/02/18 03:40 04/02/18 04:00 Temperature 97.6 F Pulse Rate 90 84 Respiratory Rate 20 20 20 Blood Pressure 118/50 L Pulse Oximetry 98 98 98 04/02/18 08:03 04/02/18 08:05 04/02/18 08:06 Temperature 97.1 F L Pulse Rate 90 90 Respiratory Rate 20 20 Blood Pressure 105/60 Pulse Oximetry 98 98 04/02/18 08:07 04/02/18 08:14 Temperature Pulse Rate 85 Respiratory Rate 20 Blood Pressure Pulse Oximetry 98 I&O: Intake & Output 03/31/18 04/01/18 04/02/18 04/03/18 06:59 06:59 06:59 06:59 Intake Total 0 / 0 5110 / 5110 750 / 750 Output Total 2225 / 2225 1060 / 1060 Balance -2225 / -2225 4050 / 4050 750 / 750 Weight 63.5 kg 71 kg Physical Exam: CONSTITUTIONAL/GENERAL: This is an adequately nourished patient, in no apparent distress. TUBES/LINES/DRAINS: OETT, OGT, cuevas, central line SKIN: No jaundice, rashes, or lesions. Ecchymoses on upper extremities. No wounds seen anteriorly. Skin temperature appropriate. Not diaphoretic. HEAD: Atraumatic. Normocephalic. EYES: pupils fixed and dilated. +scleredema. No scleral icterus. Fundi not examined. ENT: unable to assess hearing. Nose without bleeding or purulent drainage. Throat exam inhibited by ETT NECK: Trachea midline. Supple, nontender. CARDIOVASCULAR: RRR without murmurs, gallops, or rubs. No JVD. Peripheral pulses symmetric. RESPIRATORY/CHEST: Symmetric, unlabored respirations. Clear to auscultation. Breath sounds equal bilaterally. No wheezes, rales, or rhonchi. GASTROINTESTINAL: Abdomen soft, non-tender, nondistended. No hepato-splenomegaly , or palpable masses. No guarding. Bowel sounds present. GENITOURINARY: Without palpable bladder distension. Cuevas catheter in place. MUSCULOSKELETAL: Extremities without clubbing, cyanosis.+ bue edema. No joint tenderness or effusion noted. No calf tenderness. No mottling or clubbing. NEUROLOGICAL: unresponsive. does not withdraw to pain PSYCHIATRIC:unable to assess Diagnostic Tests Laboratory: Laboratory Results - last 72 hr 04/01/18 04/01/18 04/01/18 01:50 02:37 02:37 WBC 11.5 H RBC 4.71 Hgb 13.9 D Hct 42.9 MCV 91.1 MCH 29.6 MCHC 32.5 RDW 15.7 Plt Count 182 D MPV 7.9 Neut % (Auto) Lymph % (Auto) [place] % (Auto) Eos % (Auto) Baso % (Auto) Neut # (Auto) Lymph # (Auto) [place] # (Auto) Eos # (Auto) Baso # (Auto) WBC Differential Differential Comment PT INR APTT Fibrinogen Puncture Site Right radial Patient Temperature 98.6 O2 Saturation 97 ABG pH 7.29 L* ABG pCO2 41 ABG pO2 178 H ABG HCO3 19 L ABG O2 Content 18.6 ABG Base Excess -6.4 L ABG Methemoglobin 1.5 Damian Test Present Hemoglobin 13.4 Carboxyhemoglobin 0.4 O2 Delivery Device Ventilator Vent Setting Prvc/ac20/500/ Inspired O2 100 Critical Value Yes Sodium 148 H Potassium 2.3 L* D Chloride 111 H Carbon Dioxide 21.4 Anion Gap 16 H BUN 13 Creatinine 1.55 H Estimated GFR 45 L POC Glucose Random Glucose 452 H* Lactic Acid Calcium 7.3 L* Calcium Adj for Albumin 8.2 L Phosphorus 1.9 L Magnesium 2.0 Total Bilirubin 0.7 AST 1589 H ALT 1540 H Alkaline Phosphatase 106 Troponin I 3.29 H* Total Protein 6.0 L D Albumin 2.9 L D Nasal Screen MRSA (PCR) Hepatitis A IgM Ab Hep Bs Antigen Hep B Core IgM Ab Hep C IgG Ab 04/01/18 04/01/18 04/01/18 02:37 02:37 02:37 WBC RBC Hgb Hct MCV MCH MCHC RDW Plt Count MPV Neut % (Auto) Lymph % (Auto) [place] % (Auto) Eos % (Auto) Baso % (Auto) Neut # (Auto) Lymph # (Auto) [place] # (Auto) Eos # (Auto) Baso # (Auto) WBC Differential Differential Comment PT 17.1 H INR 1.7 APTT 33.7 H Fibrinogen 115 L Puncture Site Patient Temperature O2 Saturation ABG pH ABG pCO2 ABG pO2 ABG HCO3 ABG O2 Content ABG Base Excess ABG Methemoglobin Damian Test Hemoglobin Carboxyhemoglobin O2 Delivery Device Vent Setting Inspired O2 Critical Value Sodium Potassium Chloride Carbon Dioxide Anion Gap BUN Creatinine Estimated GFR POC Glucose Random Glucose Lactic Acid Calcium Calcium Adj for Albumin Phosphorus Magnesium Total Bilirubin AST ALT Alkaline Phosphatase Troponin I Cancelled Total Protein Albumin Nasal Screen MRSA (PCR) Hepatitis A IgM Ab Hep Bs Antigen Hep B Core IgM Ab Hep C IgG Ab 04/01/18 04/01/18 04/01/18 03:15 06:00 07:46 WBC RBC Hgb Hct MCV MCH MCHC RDW Plt Count MPV Neut % (Auto) Lymph % (Auto) [place] % (Auto) Eos % (Auto) Baso % (Auto) Neut # (Auto) Lymph # (Auto) [place] # (Auto) Eos # (Auto) Baso # (Auto) WBC Differential Differential Comment PT INR APTT Fibrinogen Puncture Site Patient Temperature O2 Saturation ABG pH ABG pCO2 ABG pO2 ABG HCO3 ABG O2 Content ABG Base Excess ABG Methemoglobin Damian Test Hemoglobin Carboxyhemoglobin O2 Delivery Device Vent Setting Inspired O2 Critical Value Sodium Potassium Chloride Carbon Dioxide Anion Gap BUN Creatinine Estimated GFR POC Glucose 394 H Random Glucose Lactic Acid 11.2 H* Calcium Calcium Adj for Albumin Phosphorus Magnesium Total Bilirubin AST ALT Alkaline Phosphatase Troponin I Total Protein Albumin Nasal Screen MRSA (PCR) Hepatitis A IgM Ab Nonreactive Hep Bs Antigen Nonreactive Hep B Core IgM Ab Nonreactive Hep C IgG Ab Nonreactive 04/01/18 04/01/18 04/01/18 08:30 09:00 09:00 WBC RBC Hgb Hct MCV MCH MCHC RDW Plt Count MPV Neut % (Auto) Lymph % (Auto) [place] % (Auto) Eos % (Auto) Baso % (Auto) Neut # (Auto) Lymph # (Auto) [place] # (Auto) Eos # (Auto) Baso # (Auto) WBC Differential Differential Comment PT INR APTT Fibrinogen Puncture Site Patient Temperature O2 Saturation ABG pH ABG pCO2 ABG pO2 ABG HCO3 ABG O2 Content ABG Base Excess ABG Methemoglobin Damian Test Hemoglobin Carboxyhemoglobin O2 Delivery Device Vent Setting Inspired O2 Critical Value Sodium Potassium Chloride Carbon Dioxide Anion Gap BUN Creatinine Estimated GFR POC Glucose Random Glucose Lactic Acid 11.2 H* Calcium Calcium Adj for Albumin Phosphorus Magnesium Total Bilirubin AST ALT Alkaline Phosphatase Troponin I 19.00 H* Total Protein Albumin Nasal Screen MRSA (PCR) Not detected Hepatitis A IgM Ab Hep Bs Antigen Hep B Core IgM Ab Hep C IgG Ab 04/01/18 04/01/18 04/01/18 09:21 10:17 11:08 WBC RBC Hgb Hct MCV MCH MCHC RDW Plt Count MPV Neut % (Auto) Lymph % (Auto) [place] % (Auto) Eos % (Auto) Baso % (Auto) Neut # (Auto) Lymph # (Auto) [place] # (Auto) Eos # (Auto) Baso # (Auto) WBC Differential Differential Comment PT INR APTT Fibrinogen Puncture Site Patient Temperature O2 Saturation ABG pH ABG pCO2 ABG pO2 ABG HCO3 ABG O2 Content ABG Base Excess ABG Methemoglobin Damian Test Hemoglobin Carboxyhemoglobin O2 Delivery Device Vent Setting Inspired O2 Critical Value Sodium Potassium Chloride Carbon Dioxide Anion Gap BUN Creatinine Estimated GFR POC Glucose 311 H 337 H 337 H Random Glucose Lactic Acid Calcium Calcium Adj for Albumin Phosphorus Magnesium Total Bilirubin AST ALT Alkaline Phosphatase Troponin I Total Protein Albumin Nasal Screen MRSA (PCR) Hepatitis A IgM Ab Hep Bs Antigen Hep B Core IgM Ab Hep C IgG Ab 04/01/18 04/01/18 04/01/18 12:13 13:30 14:10 WBC RBC Hgb Hct MCV MCH MCHC RDW Plt Count MPV Neut % (Auto) Lymph % (Auto) [place] % (Auto) Eos % (Auto) Baso % (Auto) Neut # (Auto) Lymph # (Auto) [place] # (Auto) Eos # (Auto) Baso # (Auto) WBC Differential Differential Comment PT INR APTT Fibrinogen Puncture Site Patient Temperature O2 Saturation ABG pH ABG pCO2 ABG pO2 ABG HCO3 ABG O2 Content ABG Base Excess ABG Methemoglobin Damian Test Hemoglobin Carboxyhemoglobin O2 Delivery Device Vent Setting Inspired O2 Critical Value Sodium Potassium Chloride Carbon Dioxide Anion Gap BUN Creatinine Estimated GFR POC Glucose 279 H 270 H 240 H Random Glucose Lactic Acid Calcium Calcium Adj for Albumin Phosphorus Magnesium Total Bilirubin AST ALT Alkaline Phosphatase Troponin I Total Protein Albumin Nasal Screen MRSA (PCR) Hepatitis A IgM Ab Hep Bs Antigen Hep B Core IgM Ab Hep C IgG Ab 04/01/18 04/01/18 04/01/18 14:59 15:25 15:57 WBC RBC Hgb Hct MCV MCH MCHC RDW Plt Count MPV Neut % (Auto) Lymph % (Auto) [place] % (Auto) Eos % (Auto) Baso % (Auto) Neut # (Auto) Lymph # (Auto) [place] # (Auto) Eos # (Auto) Baso # (Auto) WBC Differential Differential Comment PT INR APTT Fibrinogen Puncture Site Patient Temperature O2 Saturation ABG pH ABG pCO2 ABG pO2 ABG HCO3 ABG O2 Content ABG Base Excess ABG Methemoglobin Damian Test Hemoglobin Carboxyhemoglobin O2 Delivery Device Vent Setting Inspired O2 Critical Value Sodium Potassium 2.5 L* Chloride Carbon Dioxide Anion Gap BUN Creatinine Estimated GFR POC Glucose 218 H 184 H Random Glucose Lactic Acid Calcium Calcium Adj for Albumin Phosphorus 0.7 L D Magnesium Total Bilirubin AST ALT Alkaline Phosphatase Troponin I Total Protein Albumin Nasal Screen MRSA (PCR) Hepatitis A IgM Ab Hep Bs Antigen Hep B Core IgM Ab Hep C IgG Ab 04/01/18 04/01/18 04/01/18 17:00 17:53 19:50 WBC RBC Hgb Hct MCV MCH MCHC RDW Plt Count MPV Neut % (Auto) Lymph % (Auto) [place] % (Auto) Eos % (Auto) Baso % (Auto) Neut # (Auto) Lymph # (Auto) [place] # (Auto) Eos # (Auto) Baso # (Auto) WBC Differential Differential Comment PT INR APTT Fibrinogen Puncture Site Patient Temperature O2 Saturation ABG pH ABG pCO2 ABG pO2 ABG HCO3 ABG O2 Content ABG Base Excess ABG Methemoglobin Damian Test Hemoglobin Carboxyhemoglobin O2 Delivery Device Vent Setting Inspired O2 Critical Value Sodium Potassium Chloride Carbon Dioxide Anion Gap BUN Creatinine Estimated GFR POC Glucose 167 H 148 H 91 Random Glucose Lactic Acid Calcium Calcium Adj for Albumin Phosphorus Magnesium Total Bilirubin AST ALT Alkaline Phosphatase Troponin I Total Protein Albumin Nasal Screen MRSA (PCR) Hepatitis A IgM Ab Hep Bs Antigen Hep B Core IgM Ab Hep C IgG Ab 04/01/18 04/01/18 04/01/18 20:26 20:36 22:18 WBC RBC Hgb Hct MCV MCH MCHC RDW Plt Count MPV Neut % (Auto) Lymph % (Auto) [place] % (Auto) Eos % (Auto) Baso % (Auto) Neut # (Auto) Lymph # (Auto) [place] # (Auto) Eos # (Auto) Baso # (Auto) WBC Differential Differential Comment PT INR APTT Fibrinogen Puncture Site Art line Patient Temperature 98.6 O2 Saturation 98 ABG pH 7.37 L ABG pCO2 34 L ABG pO2 141 H ABG HCO3 19 L ABG O2 Content 16.5 ABG Base Excess -5.5 L ABG Methemoglobin 0.5 Damian Test Hemoglobin 11.8 L Carboxyhemoglobin 0.8 O2 Delivery Device Ventilator Vent Setting Prvc/ac/20/500/ Inspired O2 50 Critical Value No Sodium Potassium Chloride Carbon Dioxide Anion Gap BUN Creatinine Estimated GFR POC Glucose 89 80 Random Glucose Lactic Acid Calcium Calcium Adj for Albumin Phosphorus Magnesium Total Bilirubin AST ALT Alkaline Phosphatase Troponin I Total Protein Albumin Nasal Screen MRSA (PCR) Hepatitis A IgM Ab Hep Bs Antigen Hep B Core IgM Ab Hep C IgG Ab 04/02/18 04/02/18 04/02/18 00:58 02:31 04:05 WBC 12.6 H RBC 4.53 Hgb 13.3 Hct 40.2 MCV 88.8 MCH 29.4 MCHC 33.2 RDW 15.5 Plt Count 104 L D MPV 8.2 Neut % (Auto) 66.2 Lymph % (Auto) 27.9 [place] % (Auto) 3.8 Eos % (Auto) 1.8 Baso % (Auto) 0.3 Neut # (Auto) 8.3 H Lymph # (Auto) 3.5 [place] # (Auto) 0.5 Eos # (Auto) 0.2 Baso # (Auto) 0.0 WBC Differential . Differential Comment Auto diff final PT INR APTT Fibrinogen Puncture Site Patient Temperature O2 Saturation ABG pH ABG pCO2 ABG pO2 ABG HCO3 ABG O2 Content ABG Base Excess ABG Methemoglobin Damian Test Hemoglobin Carboxyhemoglobin O2 Delivery Device Vent Setting Inspired O2 Critical Value Sodium Potassium Chloride Carbon Dioxide Anion Gap BUN Creatinine Estimated GFR POC Glucose 73 109 Random Glucose Lactic Acid Calcium Calcium Adj for Albumin Phosphorus Magnesium Total Bilirubin AST ALT Alkaline Phosphatase Troponin I Total Protein Albumin Nasal Screen MRSA (PCR) Hepatitis A IgM Ab Hep Bs Antigen Hep B Core IgM Ab Hep C IgG Ab 04/02/18 04/02/18 04/02/18 04:05 04:05 04:20 WBC RBC Hgb Hct MCV MCH MCHC RDW Plt Count MPV Neut % (Auto) Lymph % (Auto) [place] % (Auto) Eos % (Auto) Baso % (Auto) Neut # (Auto) Lymph # (Auto) [place] # (Auto) Eos # (Auto) Baso # (Auto) WBC Differential Differential Comment PT 20.6 H INR 2.0 APTT 45.6 H D Fibrinogen Puncture Site Patient Temperature O2 Saturation ABG pH ABG pCO2 ABG pO2 ABG HCO3 ABG O2 Content ABG Base Excess ABG Methemoglobin Damian Test Hemoglobin Carboxyhemoglobin O2 Delivery Device Vent Setting Inspired O2 Critical Value Sodium 153 H Potassium 3.9 D Chloride 122 H D Carbon Dioxide 19.3 L Anion Gap 12 BUN 18 Creatinine 1.90 H Estimated GFR 35 L POC Glucose 102 Random Glucose 108 H D Lactic Acid Calcium 6.7 L* Calcium Adj for Albumin 8.2 L Phosphorus 3.9 D Magnesium 0.9 L D Total Bilirubin 0.7 AST 399 H ALT 639 H Alkaline Phosphatase 63 Troponin I Total Protein 4.8 L D Albumin 2.1 L D Nasal Screen MRSA (PCR) Hepatitis A IgM Ab Hep Bs Antigen Hep B Core IgM Ab Hep C IgG Ab 04/02/18 04/02/18 06:26 09:00 WBC RBC Hgb Hct MCV MCH MCHC RDW Plt Count MPV Neut % (Auto) Lymph % (Auto) [place] % (Auto) Eos % (Auto) Baso % (Auto) Neut # (Auto) Lymph # (Auto) [place] # (Auto) Eos # (Auto) Baso # (Auto) WBC Differential Differential Comment PT INR APTT Fibrinogen Puncture Site Patient Temperature O2 Saturation ABG pH ABG pCO2 ABG pO2 ABG HCO3 ABG O2 Content ABG Base Excess ABG Methemoglobin Damian Test Hemoglobin Carboxyhemoglobin O2 Delivery Device Vent Setting Inspired O2 Critical Value Sodium Potassium Chloride Carbon Dioxide Anion Gap BUN Creatinine Estimated GFR POC Glucose 92 Random Glucose Lactic Acid 5.5 H* Calcium Calcium Adj for Albumin Phosphorus Magnesium Total Bilirubin AST ALT Alkaline Phosphatase Troponin I Total Protein Albumin Nasal Screen MRSA (PCR) Hepatitis A IgM Ab Hep Bs Antigen Hep B Core IgM Ab Hep C IgG Ab Result Diagrams: 04/03/18 10:45 04/03/18 10:45 Microbiology: Microbiology 04/01/18 06:16 Urine Culture - Preliminary Catheterized Urine No growth in 24 hours Imaging: ITS Impressions Chest X-Ray 04/01/18 02:59 CONCLUSION: 1. Interval placement of a left IJ central venous catheter with the tip projecting over the central venous system. No pneumothorax. 2. Persistent bilateral prominent perihilar airspace disease. Head CT 04/01/18 03:08 CONCLUSION: 1. 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 Small amount of subarachnoid hemorrhage. Associated ventriculomegaly. 2. Periventricular edema with loss of the teresa-white differentiation may be related to diffuse anoxia. . . Procedures: 04/01 art line placed 04/01 central line placed 04/01 intubated Patient/Family Conference Present at Family Conference: Brother Xu Mcnair' Family Conference Time: 46 Family Conference Location: Bedside, Telephone Issues Discussed: 1100 - had Telephone discussion with Xu. He agreed to meet later this afternoon around 3 or 4 and requested use of felting machine operator helper. He requested update while on phone so I provided that to him. He seems to understand the poor prognosis. He wants the pt to be able to return to the assisted so the pt' s friends and girlfriend can pay their last respects. I suggested it would be more feasible to have them visit but Xu said this would not be possible. He is insisting that pt be returned to assisted if "the doctors don't have any solutions." Further discussion to be had this afternoon. 1200 Spoke with [facility] Reviwed Patients general health, functional status, and cognitive changes in the months leading up to the current hospitalization. They cannot accept a vented pt under any circumstances , even for compassionate withdrawal on site. Pt could return extubated and with hospice but there is concern that he would not survive long enough to make the trip. THey are to [facility]. 1700 - bedside meeting with Xu & , used [employer] felting machine operator helper * Palliative care role * family understanding of the current medical problems * family understanding of prognosis * Patients goals of care as best understood from conversations * Current medical treatment options and benefits/burdens of those options * Likely scenarios comparing ongoing aggressive care with a transition to comfort measures only * decision maker * code status * brief discussion hospice * Questions answered to the best of my ability * Palliative care contact information provided Goals comfort oriented. Xu is a long time friend of pt and considers him a brother. He said he is in charge of all pt's affairs to include medical decision making and that [facility] has these papers. I gently explained that the assisted would not accept the patient on a ventilator and that there is concerned that the patient if compassionately extubated, may not survive the trip to the assisted with hospice. We discussed aggressive care vs no escalation and DNR vs compassionate withdrawal. Xu is adamant that he would not want pt to have a tracheostomy. He is struggling with this acute decline but repeatedly verbalizes that he does not want the patient to suffer. He agrees to no code/DNR and no escalation of care at this time. He agrees discuss again tomorrow. Answered all questions to the best of my ability and provided palliative contact information. Assessment and Plan - Disease Oriented Problem List (1) Respiratory failure (2) Intracerebral hemorrhage (3) Anoxia of brain (4) Congestive heart failure Comment: per EVAC - Symptom Scale (1) Dyspnea 0-10 Scale: Unable to quantify (2) Encephalopathy 0-10 Scale: Unable to quantify Pertinent Non-Medical Issues: Psychosocial: Pt was living in a assisted. Has 1 brother/friend who is local. Pt originally from [facility]. Spiritual: pastoral care available Legal: Pt is not capacitated to make decisions and it is unlikely he will regain capacity. Pt's friend/brother Xu says he is in charge of all pt's affairs to include medical decision making. Ethical issues impacting care: none Important Contacts: Xu Lynch [phone] Prognosis: 67 y/o male who presented 2 after suffering brain bleed and subsequent cardiac arrest. Currently intubated, on pressors. Has no evidence intact brainstem reflexes, EEG severely abnormal and nearly flat. If compassionately removed from life support, expect he would imminently. Grave prognosis. Code Status: No Code DNR Plan: - LEGAL DECISION MAKER - Pt is not capacitated to make decisions and it is unlikely he will regain capacity. Proxy medical decision making falls to his brother Xu. - CODE STATUS- no code/DNR - GOALS - Goals comfort oriented. Xu is a long time friend of pt and considers him a brother. He said he is in charge of all pt's affairs to include medical decision making and that [facility] has these papers. I gently explained that the assisted would not accept the patient on a ventilator and that there is concerned that the patient if compassionately extubated, may not survive the trip to the assisted with hospice. We discussed aggressive care vs no escalation and DNR vs compassionate withdrawal. Xu is adamant that he would not want pt to have a tracheostomy. He is struggling with this acute decline but repeatedly verbalizes that he does not want the patient to suffer. He agrees to no code/DNR and no escalation of care at this time. He agrees discuss again tomorrow. Answered all questions to the best of my ability and provided palliative contact information. - SYMPTOMS - * dyspnea - respiratory failure after brain bleed, cardiac arrest. on pressors. intubated. * encephalopathy - pt w/o brain stem reflexes and severely abnormal EEG. Should family want to be aggressive, next step per neurology would be cerebral perfusion blood study. - d/w Dr Rios, d/w RN, d/w Dr Carlton - Palliative care will continue to follow during hospital course as condition evolves, to assist patient/decision-maker with understanding of medical conditions, weighing benefits/burdens of treatment options, for clarification of goals of treatment. Additionally will assist with any symptoms of palliative concern Appreciation Thank you for the opportunity to participate in the care of Javier Maradiaga. Attestation Attestation: To help prompt me to consider important information that might be impacting today's encounter and assessment, information from prior notes written by myself or my colleagues may have been "brought forward" into today's note. My signature on this note, however, is an attestation that I personally performed the exam, history, and/or decision-making noted today, and, unless otherwise indicated, the interactions with patient, family, and staff as well as the review of records all occurred today. I also attest that the listed assessment and stated plan reflect my best clinical judgment today based on the combination of historical information, prior notes, and today's exam/ interactions. When time spent is documented, it refers only to time spent today by the signer, or if indicated, combined time spent today by collaborating physician/nurse practitioner.
--- NOTE | 2018-04-02 17:09 | ECG ---
Date Performed: 04/01/2018 Time Performed: 11:31:32 PTAGE: 67 years EKG: Sinus tachycardia with PVC(s). Nonspecific intraventricular conduction delay Nonspecific ST abnormality, which may be secondary to Left ventricular hypertrophy, but voltage is not as great as on the old tracing Abnormal ECG PREVIOUS TRACING : 04/01/2018 02.52 DOCTOR: Rohan Frias Interpretating Date/Time 04/02/2018 17:09:09
[2018-04-02] MEDS: Norepinephrine Inj 16 MG in Sodium Chlor 0.9% Inj 234 ML IV.CONT PRN (18:43)
[2018-04-02 19:54] LABS: Calcium 7.2 mg/dL (8.5-10.1); Carbon Dioxide 20.6 meq/L (21.0-32.0); Magnesium 1.9 mg/dL (1.5-2.5)
[2018-04-02 20:18] LABS: Calcium-Albumin Corrected 8.8 mg/dL (8.5-10.1)
--- NOTE | 2018-04-02 22:41 | P.PNNEU ---
Subjective Subjective Comments: no new neurologic SX Active Medications: Active Medications Al Hydroxide/Mg Hydroxide (Milk Of Magnzan Liq) 30 ml PO Q12H PRN PRN Reason: Mild Constipation Albuterol (Albuterol Neb (Prn)) 2.5 mg NEB Q2HR NEB PRN PRN Reason: SHORTNESS OF BREATH/WHEEZING Albuterol (Duoneb Neb (Laura)) 1 ampul NEB Q6HR NEB LAURA Last Admin: 04/02/18 20:39 Dose: 1 ampul Bisacodyl (Dulcolax Supp) 10 mg RECTAL DAILY PRN PRN Reason: SEVERE CONSITIPATION Chlorhexidine Gluconate (Chlorhexidine 2% Cloth) 3 pack TOPICAL DAILY@0400 LAURA Stop: 04/06/18 03:59 Last Admin: 04/02/18 06:10 Dose: 3 pack Chlorhexidine Gluconate (Chlorhexidine 2% Cloth) 3 pack TOPICAL DAILY@0400 PRN PRN Reason: Extra cloth needed Stop: 04/06/18 03:59 Chlorhexidine Gluconate (Peridex 0.12% Oral Kit) 15 ml OROPHARYNG BID@0800, 2000 [facility] Last Admin: 04/02/18 07:48 Dose: 15 ml Dextrose (D50w Vial) 50 ml IV.PUSH UNSCH PRN PRN Reason: PER HYPOGLYCEMIA PROTOCOL Last Admin: 04/02/18 01:07 Dose: 50 ml Fentanyl Citrate (Fentanyl Inj) 50 mcg IV PUSH Q1H PRN PRN Reason: Pain scale 6-10, &/or sedation Glucagon (Glucagon Inj) 1 mg OTHER PRN PRN PRN Reason: for Hypoglycemia Protocol Phenylephrine HCl 160 mg/ (Sodium Chloride) 500 mls @ 7.5 mls/hr IV.CONT TITRATE PRN; Protocol PRN Reason: Per Protocol Last Titration: 04/02/18 10:46 Dose: 140 mcg/min, 26.25 mls/hr Epinephrine HCl 4 mg/ Dextrose 250 mls @ 11.25 mls/hr IV.CONT TITRATE PRN; Protocol PRN Reason: Per Protocol Last Titration: 04/02/18 20:31 Dose: 10 mcg/min, 37.5 mls/hr Amiodarone HCl 450 mg/ (Dextrose) 250 mls @ 33.33 mls/hr IV.CONT TITRATE PRN; Protocol PRN Reason: Per Protocol Last Admin: 04/02/18 15:35 Dose: 0.5 mg/min, 16.66 mls/hr Magnesium Sulfate 4 gm/ Sodium (Chloride) 100 mls @ 50 mls/hr IV.SIG UNSCH PRN PRN Reason: For Magnesium 0.9 - 1.1 mg/dL Magnesium Sulfate 2 gm/ Sodium (Chloride) 100 mls @ 50 mls/hr IV.SIG UNSCH PRN PRN Reason: For Magnesium 1.2 - 1.6 mg/dL Potassium Chloride (Kcl 40 Meq Premix Inj) 40 meq in 100 mls @ 25 mls/hr IV.SIG Q2H PRN PRN Reason: For Potassium 2.8 - 3.2 mEq/L Last Admin: 04/01/18 16:25 Dose: 25 mls/hr Potassium Chloride (Kcl 20 Meq Premix Inj) 20 meq in 100 mls @ 50 mls/hr IV.SIG Q2H PRN PRN Reason: For Potassium 3.3 - 3.5 mEq/L Potassium Chloride (Kcl 40 Meq Premix Inj) 40 meq in 100 mls @ 25 mls/hr IV.SIG UNSCH PRN PRN Reason: For Potassium 3.3 - 3.5 mEq/L Potassium Phosphate 30 mmol/ (Sodium Chloride) 260 mls @ 42 mls/hr IV.SIG UNSCH PRN PRN Reason: SEE LABEL COMMENTS Last Admin: 04/01/18 16:51 Dose: 42 mls/hr Sodium Phosphate 30 mmol/ (Sodium Chloride) 260 mls @ 42 mls/hr IV.SIG UNSCH PRN PRN Reason: For Phosphorus < 2.5 mg/dL Potassium Chloride (Kcl 20 Meq Premix Inj) 20 meq in 100 mls @ 50 mls/hr IV.SIG Q2H PRN PRN Reason: For Potassium 2.8 - 3.2 mEq/L Insulin Human Regular 100 unit (/ Sodium Chloride) 100 mls @ 0 mls/hr IV.CONT TITRATE PRN; Protocol PRN Reason: See protocol Last Titration: 04/02/18 07:21 Dose: 0 units/hr, 0 mls/hr Norepinephrine Bitartrate 16 (mg/ Sodium Chloride) 250 mls @ 1.87 mls/hr IV.CONT TITRATE PRN; Protocol PRN Reason: See Protocol Last Titration: 04/02/18 20:25 Dose: 15 mcg/min, 14.06 mls/hr Dopamine HCl/Dextrose (Dopamine 800 Mg/500 Ml Premix) 800 mg in 500 mls @ 7.819 mls/hr IV.CONT TITRATE PRN; Protocol PRN Reason: Per Protocol Last Titration: 04/02/18 08:28 Dose: 5 mcg/kg/min, 13.03 mls/hr Dextrose/Sodium Chloride (D5w/1/2 Ns Inj) 1,000 mls @ 100 mls/hr IV.CONT .Q10H [facility] Last Admin: 04/02/18 17:40 Dose: 100 mls/hr Lactulose (Lactulose Liq) 30 ml PO DAILY PRN PRN Reason: SEVERE CONSITIPATION Magnesium Oxide (Mag-Ox) 800 mg PO UNSCH PRN PRN Reason: For Magnesium 1.2 - 1.6 mg/dL Miscellaneous Medication () 1 each OROPHARYNG 0000,0400,1200,1600 [facility] Last Admin: 04/02/18 11:20 Dose: 1 each Ondansetron HCl (Zofran Inj) 4 mg IV.PUSH Q6H PRN PRN Reason: NAUSEA OR VOMITING Pantoprazole Sodium (Protonix Inj) 40 mg IV.PUSH DAILY [facility] Last Admin: 04/02/18 08:42 Dose: 40 mg Potassium Chloride (Kcl Liq) 40 meq PO UNSCH PRN PRN Reason: Potassium level 3.3-3.5 mEq/L Potassium Chloride (Kcl Liq) 40 meq PO UNSCH PRN PRN Reason: POTASSIUM LESS THAN 3.5 Potassium Phosphate (K-Phos Original) 2,000 mg PO Q4H PRN PRN Reason: Phosphorus Less Than 2.5 mg/dL Potassium Phosphate (K-Phos Original) 2,000 mg PO UNSCH PRN PRN Reason: SEE LABEL COMMENTS Senna/Docusate Sodium (Barbara-Colace) 1 tab PO BID [facility] Last Admin: 04/02/18 08:42 Dose: 1 tab Sennosides (Senokot) 17.2 mg PO Q12H PRN PRN Reason: Moderate Constipation Sodium Chloride (Ns Flush) 2 ml IV.FLUSH BID [facility] Last Admin: 04/02/18 09:57 Dose: 2 ml Sodium Chloride (Ns Flush) 2 ml IV.FLUSH PRN PRN PRN Reason: FLUSH AFTER USING IV ACCESS Last Admin: 04/02/18 08:43 Dose: 2 ml Terbutaline Sulfate (Brethine Inj) 1 mg SQ UNSCH PRN PRN Reason: Extravasation Allergies/Adverse Reactions: Allergies Allergy/AdvReac Type Severity Reaction Status Date / Time No Known Allergies Allergy Verified 03/31/18 23:56 Physical Exam Vital signs: Vital Signs 04/01/18 22:42 04/02/18 00:00 04/02/18 00:29 Temperature 98.3 F Pulse Rate 91 H Respiratory Rate 20 20 20 Blood Pressure 111/55 L Pulse Oximetry 99 98 98 04/02/18 03:40 04/02/18 04:00 04/02/18 08:03 Temperature 97.6 F Pulse Rate 90 84 90 Respiratory Rate 20 20 Blood Pressure 118/50 L Pulse Oximetry 98 98 04/02/18 08:05 04/02/18 08:06 04/02/18 08:07 Temperature 97.1 F L Pulse Rate 90 Respiratory Rate 20 20 Blood Pressure 105/60 Pulse Oximetry 98 98 98 04/02/18 08:14 04/02/18 11:31 04/02/18 11:38 Temperature 96.8 F L Pulse Rate 85 124 H 124 H Respiratory Rate 20 20 Blood Pressure 99/59 L Pulse Oximetry 96 04/02/18 12:35 04/02/18 16:00 04/02/18 16:10 Temperature 96.8 F L Pulse Rate 120 H Respiratory Rate 20 20 Blood Pressure Pulse Oximetry 97 98 98 04/02/18 16:30 04/02/18 20:00 04/02/18 20:35 Temperature 97.0 F L Pulse Rate 110 H 113 H Respiratory Rate 20 20 20 Blood Pressure 130/69 Pulse Oximetry 98 98 04/02/18 20:39 Temperature Pulse Rate 111 H Respiratory Rate 20 Blood Pressure Pulse Oximetry Intake & Output 04/02/18 04/02/18 04/03/18 06:59 18:59 06:59 Intake Total 1250 / 1250 2500 / 2500 Output Total 160 / 160 1545 / 1545 Balance 1090 / 1090 955 / 955 Weight 71 kg Intake: IV 1250 / 1250 2500 / 2500 Cordarone Inj 450 MG In D5W Inj 250 / 250 250 / 250 241 ML @ 1 MG/MIN 33.33 mls/hr IV.CONT TITRATE PRN Rx#: [id number] D5W/1/2 NS Inj 1,000 ML @ 100 1000 / 1000 mls/hr IV.CONT .Q10H LAURA Rx#: [id number] EPINEPHrine (1:1000) Inj 4 MG 500 / 500 500 / 500 In D5W Inj 246 ML @ 3 MCG/MIN 11.25 mls/hr IV.CONT TITRATE PRN Rx#:[id number] Levophed Inj 16 MG In NS Inj 250 / 250 234 ML @ 2 MCG/MIN 1.87 mls/hr IV.CONT TITRATE PRN Rx#: [id number] Neosynephrine Inj 160 MG In NS 500 / 500 500 / 500 Inj 484 ML @ 40 MCG/MIN 7.5 mls /hr IV.CONT TITRATE PRN Rx#: [id number] Oral 0 / 0 0 / 0 Output: Urine Amount (Catheter) 110 / 110 1545 / 1545 1545 1545 / 1545 Indwelling Temp Sensing 110 / 110 Catheter Gastric Drainage 50 / 50 Oral Orogastric Tube 50 / 50 Other: # Bowel Movements 0 0 - Routine Neurological Exam not responsive tO voice.decerebrate posturing occasionally pupils 4mm nonreactive to light absent corneal reflexes absent ciliospinal reflex no withdrawal to stimuli. sternal rub produces some decerebrate posture - Urinary Catheter Management Indwelling Temp Sensing Catheter Cath placed during this visit: yes Reason for continuing: Hourly intake/output Insertion date: 04/01/18 Insertion time: 03:00 1545 Cath placed during this visit: no Reason for continuing: Hourly intake/output Objective Laboratory Results - last 24 hr 04/02/18 04/02/18 04/02/18 00:58 02:31 04:05 WBC 12.6 H RBC 4.53 Hgb 13.3 Hct 40.2 MCV 88.8 MCH 29.4 MCHC 33.2 RDW 15.5 Plt Count 104 L D MPV 8.2 Neut % (Auto) 66.2 Lymph % (Auto) 27.9 Ellis % (Auto) 3.8 Eos % (Auto) 1.8 Baso % (Auto) 0.3 Neut # (Auto) 8.3 H Lymph # (Auto) 3.5 Ellis # (Auto) 0.5 Eos # (Auto) 0.2 Baso # (Auto) 0.0 WBC Differential . Differential Comment Auto diff final PT INR APTT Sodium Potassium Chloride Carbon Dioxide Anion Gap BUN Creatinine Estimated GFR POC Glucose 73 109 Random Glucose Lactic Acid Calcium Calcium Adj for Albumin Phosphorus Magnesium Total Bilirubin AST ALT Alkaline Phosphatase Total Protein Albumin 04/02/18 04/02/18 04/02/18 04:05 04:05 04:20 WBC RBC Hgb Hct MCV MCH MCHC RDW Plt Count MPV Neut % (Auto) Lymph % (Auto) Ellis % (Auto) Eos % (Auto) Baso % (Auto) Neut # (Auto) Lymph # (Auto) Ellis # (Auto) Eos # (Auto) Baso # (Auto) WBC Differential Differential Comment PT 20.6 H INR 2.0 APTT 45.6 H D Sodium 153 H Potassium 3.9 D Chloride 122 H D Carbon Dioxide 19.3 L Anion Gap 12 BUN 18 Creatinine 1.90 H Estimated GFR 35 L POC Glucose 102 Random Glucose 108 H D Lactic Acid Calcium 6.7 L* Calcium Adj for Albumin 8.2 L Phosphorus 3.9 D Magnesium 0.9 L D Total Bilirubin 0.7 AST 399 H ALT 639 H Alkaline Phosphatase 63 Total Protein 4.8 L D Albumin 2.1 L D 04/02/18 04/02/18 04/02/18 06:26 09:00 11:42 WBC RBC Hgb Hct MCV MCH MCHC RDW Plt Count MPV Neut % (Auto) Lymph % (Auto) Ellis % (Auto) Eos % (Auto) Baso % (Auto) Neut # (Auto) Lymph # (Auto) Ellis # (Auto) Eos # (Auto) Baso # (Auto) WBC Differential Differential Comment PT INR APTT Sodium Potassium Chloride Carbon Dioxide Anion Gap BUN Creatinine Estimated GFR POC Glucose 92 164 H Random Glucose Lactic Acid 5.5 H* Calcium Calcium Adj for Albumin Phosphorus Magnesium Total Bilirubin AST ALT Alkaline Phosphatase Total Protein Albumin 04/02/18 04/02/18 12:00 18:58 WBC RBC Hgb Hct MCV MCH MCHC RDW Plt Count MPV Neut % (Auto) Lymph % (Auto) Ellis % (Auto) Eos % (Auto) Baso % (Auto) Neut # (Auto) Lymph # (Auto) Ellis # (Auto) Eos # (Auto) Baso # (Auto) WBC Differential Differential Comment PT INR APTT Sodium 153 H Potassium 4.0 Chloride 122 H Carbon Dioxide 20.6 L Anion Gap 10 BUN 17 Creatinine 1.63 H Estimated GFR 42 L POC Glucose Random Glucose 199 H Lactic Acid 5.4 H* Calcium 7.2 L* Calcium Adj for Albumin 8.8 Phosphorus Magnesium 1.9 D Total Bilirubin AST ALT Alkaline Phosphatase Total Protein Albumin 2.0 L Microbiology 04/01/18 06:18 Aerobic Blood Culture - Preliminary Blood - Peripheral No growth in 1 day Anaerobic Blood Culture - Preliminary No growth in 1 day 04/01/18 06:00 Aerobic Blood Culture - Preliminary Blood - Peripheral No growth in 1 day Anaerobic Blood Culture - Preliminary No growth in 1 day 04/01/18 06:16 Urine Culture - Preliminary Catheterized Urine No growth in 24 hours Review/Management - Review/Management Plan: cerebellar and subarachnoid and intraventricular hemorrhage . prognosis very poor.
[2018-04-03] MEDS: Dextrose 5%/NaCl 0.45% Inj 1,000 ML IV.CONT SCH (02:45)
[2018-04-03] MEDS: Chlorhexidine 0.12% Oral Kit 15 ML UDC OROPHARYNG SCH ×3 (02:54→21:48)
[2018-04-03] MEDS: Oral Hygiene Kit OROPHARYNG SCH ×5 (02:55→18:33)
[2018-04-03] MEDS: Senna/Docusate Sodium 8.6/50 MG Tablet PO SCH ×3 (02:57→22:10)
[2018-04-03] MEDS: Phenylephrine Inj 160 MG in Sodium Chlor 0.9% Inj 484 ML IV.CONT PRN ×2 (03:28→21:54)
[2018-04-03] MEDS: Chlorhexidine Gluconate 2% 1 Pack (2 Cloths) TOPICAL SCH (04:00)
[2018-04-03] MEDS ORDERED: fentaNYL 10 mcg/mL Premix Drip 2,500 MCG/250 ML BAG IV.SIG PRN (10:37)
[2018-04-03 11:08] LABS: Hematocrit 38.1 % (39.0-51.0); Hemoglobin 12.6 gm/dL (13.0-17.0); Mean Corpuscular Hemoglobin 29.4 pg (27.0-34.0); Mean Corpuscular Volume 88.9 fL (80.0-100.0); Mean Platelet Volume 8.6 fL (7.0-11.0); Platelet Count 70 th/mm3 (150-450); Red Blood Count 4.29 mil/mm3 (4.50-5.90)
[2018-04-03 11:29] LABS: Calcium 7.2 mg/dL (8.5-10.1); Carbon Dioxide 23.5 meq/L (21.0-32.0); Potassium 4.4 meq/L (3.5-5.1)
[2018-04-03 11:35] LABS: Albumin 1.9 g/dL (3.4-5.0); Calcium-Albumin Corrected 8.9 mg/dL (8.5-10.1)
[2018-04-03] MEDS: Dextrose 5% in Water Inj 1,000 ML IV.CONT SCH ×2 (12:18→21:45)
[2018-04-03] MEDS: Norepinephrine Inj 16 MG in Sodium Chlor 0.9% Inj 234 ML IV.CONT PRN (12:57)
--- NOTE | 2018-04-03 13:34 | P.PNCC ---
Subjective Subjective Remarks/Hospital Course: 67-year-old Yi-speaking male with past medical history of hemorrhagic stroke, essential hypertension, hyperlipidemia, GERD, iron deficiency anemia, depression who presented to [facility] after V. fib cardiac arrest. Apparently he was found unresponsive at the intermediate and CPR was initiated. He was in V. fib upon [facility] arrival. Per report from ED physician, patient received 5 doses of epinephrine and at least 5 shocks per EVAC and amiodarone 300 mg IV bolus. Upon arrival to the [place] emergency department, he remained in V. fib and was given 2 doses of epinephrine 5 mg IV each, amiodarone 100 mg IV, and additional defibrillation. He then had return of spontaneous circulation. He had an additional cardiac arrest in the emergency department which again responded to epinephrine. Transferred to [facility] was requested. I was informed that total duration of ACLS was 40 minutes. He was placed on epinephrine and phenylephrine prior to transfer. Records indicate that he has been a resident at intermediate in [place] since and that he was transferred there from another intermediate facility. He is wheelchair-bound at baseline. Records indicate that he is full code. There is no detailed advanced directive. 04/02: Patient has intermittent movement of head back and forth which does not appear to be purposeful. Cold calorics were tested yesterday with neurologist and patient had no response. He continues to have no cough, gag, or corneal reflexes. He also continues to have persistent hypotension requiring multiple pressors. Family meeting scheduled for today with palliative care around 11 AM. 04/03: Patient's intermediate does not have POA paperwork naming his friend Xu as POA or medical decision maker. He mentioned to Anh from palliative care that the patient has an estranged daughter. Palliative care team is working on contacting her as she is next of kin. Otherwise, the patient's status has not changed; he continues to require multiple pressors to maintain a MAP of 65 mmHg and has had no improvement in neurologic status. Objective Vital Signs / I&O: Vital Signs 04/02/18 16:00 04/02/18 16:10 04/02/18 16:30 Temperature 96.8 F L Pulse Rate 120 H 110 H Respiratory Rate 20 20 Blood Pressure Pulse Oximetry 98 98 04/02/18 20:00 04/02/18 20:35 04/02/18 20:39 Temperature 97.0 F L Pulse Rate 114 H 111 H Respiratory Rate 20 20 20 Blood Pressure 130/69 Pulse Oximetry 98 98 04/02/18 22:30 04/03/18 00:00 04/03/18 00:22 Temperature 98.3 F Pulse Rate 112 H Respiratory Rate 20 20 20 Blood Pressure 134/71 Pulse Oximetry 99 99 99 04/03/18 03:27 04/03/18 04:00 04/03/18 07:00 Temperature 98.7 F 99.6 F Pulse Rate 105 H 111 H 101 H Respiratory Rate 20 20 20 Blood Pressure 142/71 H 120/65 Pulse Oximetry 98 98 99 04/03/18 08:00 04/03/18 08:03 04/03/18 08:36 Temperature 98.7 F Pulse Rate 105 H Respiratory Rate 20 Blood Pressure 142/71 H 83/56 L Pulse Oximetry 98 99 04/03/18 08:37 04/03/18 08:45 04/03/18 08:58 Temperature Pulse Rate 97 H 99 H Respiratory Rate 16 20 20 Blood Pressure Pulse Oximetry 100 100 04/03/18 09:00 04/03/18 09:15 04/03/18 09:30 Temperature Pulse Rate 105 H 105 H 106 H Respiratory Rate 20 20 20 Blood Pressure Pulse Oximetry 100 100 100 04/03/18 09:45 04/03/18 10:00 04/03/18 10:15 Temperature Pulse Rate 107 H 108 H 107 H Respiratory Rate 20 20 20 Blood Pressure Pulse Oximetry 100 100 100 04/03/18 10:30 04/03/18 10:45 04/03/18 10:59 Temperature Pulse Rate 109 H 109 H 104 H Respiratory Rate 20 20 20 Blood Pressure Pulse Oximetry 100 100 04/03/18 11:00 04/03/18 11:15 04/03/18 11:30 Temperature Pulse Rate 107 H 105 H 104 H Respiratory Rate 20 20 20 Blood Pressure Pulse Oximetry 100 100 100 04/03/18 11:45 04/03/18 11:49 04/03/18 11:56 Temperature Pulse Rate 104 H 111 H 116 H Respiratory Rate 20 20 20 Blood Pressure 183/116 H 102/64 Pulse Oximetry 100 100 100 04/03/18 12:00 04/03/18 12:15 04/03/18 12:16 Temperature 98.5 F Pulse Rate 114 H 106 H Respiratory Rate 20 16 20 Blood Pressure Pulse Oximetry 100 100 100 Intake & Output 04/02/18 04/03/18 04/03/18 18:59 06:59 18:59 Intake Total 2500 / 2500 1983 750 / 750 Output Total 1545 / 1545 2084 Balance 955 / 955 -101 / -101 750 / 750 Weight 73 kg Intake: IV 2500 / 2500 1983 750 / 750 Cordarone Inj 450 MG In D5W Inj 250 / 250 250 / 250 241 ML @ 1 MG/MIN 33.33 mls/hr IV.CONT TITRATE PRN Rx#: [id number] D5W/1/2 NS Inj 1,000 ML @ 100 1000 / 1000 1000 / 1000 mls/hr IV.CONT .Q10H LAURA Rx#: [id number] EPINEPHrine (1:1000) Inj 4 MG 500 / 500 250 / 250 500 / 500 In D5W Inj 246 ML @ 3 MCG/MIN 11.25 mls/hr IV.CONT TITRATE PRN Rx#:[id number] Levophed Inj 16 MG In NS Inj 250 / 250 250 / 250 234 ML @ 2 MCG/MIN 1.87 mls/hr IV.CONT TITRATE PRN Rx#: [id number] Neosynephrine Inj 160 MG In NS 500 / 500 484 / 484 Inj 484 ML @ 40 MCG/MIN 7.5 mls /hr IV.CONT TITRATE PRN Rx#: [id number] Oral 0 / 0 0 / 0 Output: Urine Amount (Catheter) 1545 / 1545 2084 / 2085 1545 1545 / 1545 Indwelling Temp Sensing 2084 Catheter Other: # Bowel Movements 0 0 Result Diagrams: 04/03/18 10:45 04/03/18 10:45 Objective Remarks: GEN: Ill-appearing elderly male, intubated and sedated HEENT: No cough, gag, or corneal reflexes; occasional non-purposeful side-to- side movement of head NECK: Trachea midline CARDIO: Tachy, regular PULM: Mechanical breath sounds bilaterally ABD/GI: Soft, non-distended EXT/MSK: 1+ peripheral edema SKIN: No rashes or lesions NEURO: GCS 3T ([id number]), does not withdraw extremities to noxious stimuli, no cough/ gag/ corneal reflexes, pupils fixed and dilated PSYCH: Unable to assess Assessment and Plan - Assessment and Plan Plan: NEURO: Cerebellar and intraventricular hemorrhage Obstructive hydrocephalus Cerebral anoxia History of hemorrhagic stroke Depression Nonambulatory at baseline Nonsurvivable intracerebral hemorrhage resulting in cardiac arrest The patient has no brain stem reflexes but occasionally has non-purposeful movements of his head Neurology following EEG on 04/01 showed "extremely abnormal study with a severely attenuated and for the most part silent tracing consistent with severe encephalopathy" RESP: Acute respiratory failure Pulmonary edema PRVC, PEEP 10. Ventilator Bundle. Albuterol every 2 hours as needed CV: V. fib cardiac arrest Essential hypertension at baseline Hyperlipidemia Currently on norepinephrine gtt @ 15, epinephrine gtt @ 10, dopamine @ 5, and phenylephrine gtt @ 140 for goal MAP > 65 mmHg Remains on amiodarone gtt, currently in NSR 2D echo showed severe systolic dysfunction with EF of 20-25%, global LV dysfunction, akinetic mid-anterior septal wall, mild TR, PAP 38.5 mmHg GI: Ischemic hepatitis GERD OGT to LIWS. Protonix 40 mg IV qday Bowel regimen Viral hepatitis panel non-reactive FEN/RENAL: Acute anion gap metabolic acidemia secondary to lactic acidemia Acute kidney injury Hypernatremia Hypokalemia Hypophosphatemia Worsening hypernatremia and hyperchloremia; will change D5 1/2 NS to D5W @ 100 mL/hr No longer trending lactic acid as patient is already on 4 pressors/ ionotropes and would not be a candidate for any additional cardiac support (i.e., Impella) BUN/ creat trending down ID: Monitor for signs and symptoms of infection HEME: Coagulopathy No clinical indication to correct coagulopathy as patient has nonsurvivable ICH and otherwise no clinical evidence of bleeding. ENDO: Acute hyperglycemia Sliding scale insulin PROPH: SCDs for DVT prophylaxis. Protonix 40 mg IV daily for stress ulcer prophylaxis and history of GERD ACCESS: Right radial art line placed 04/01 #3. Left IJ central venous line placed 04/01 #3 OVERALL: This patient remains critically ill and unstable. He requires continued ICU level of care. He has no realistic expectation for a functional neurologic recovery. Palliative care is working on contacting the patient's next of kin to discuss goals of care. Level 1 follow up To help prompt me to consider important information that might be impacting today's encounter and assessment, information from prior notes written by myself or my colleagues may have been "brought forward" into today's note. My signature on this note, however, is an attestation that I personally performed the exam, history, and/or decision-making noted today, and, unless otherwise indicated, the interactions with patient, family, and staff as well as the review of records all occurred today. I also attest that the listed assessment and stated plan reflect my best clinical judgment today based on the combination of historical information, prior notes, and today's exam/ interactions. Code Status: DNR
--- NOTE | 2018-04-03 13:52 | P.PNPAL ---
Reason for Visit Reason for visit: a. To assist with evaluation and management of symptoms including: encephalopathy, dyspnea b. To assist medical decision maker(s) with: better understanding of current medical conditions; weighing benefits/burdens of medical treatment options; making medical treatment decisions. Subjective Subjective/Interval History: No changes from neurological standpoint. Family/Friend Interactions: Patient seen in room, Xu and his at bedside. Had discussion with use microphone operator. Previously Yonatan had mentioned patient had an estranged daughter in the [place]. I explained to him that per [place] statute in the absence of a designated healthcare surrogate, there is a hierarchy of proxy decision makers. I was explained to that previously the patient had told him he wanted him to be his decision maker however nothing was put on paper. In this case proxy decision making would fall to the patient's daughter. Xu did actually have her contact info and we tried to call her with the talent acquisition sourcer but she did not answer. She did send him a text. Xu wants compassionate extubation. I explained that we had to offer pt's daughter participation in decision making but that she could opt out. We will continue trying to contact her. I was able to contact the daughter by telephone with santos microphone operator. She now wishes to participate in medical decision making. I provided medical update. I repeatedly explained that he had no brainstem reflexes. Discussed poor prognosis, CODE STATUS at length. She says she is unable to make any decisions without seeing him first and requests a letter explaining that he is critically ill so she can take it to the consulate and arrange to come to see him. Advance Directives Living Will: Never completed Health Care Surrogate: Never completed Durable Power of Director Of Safety And Security: Never completed Objective Vital Signs: Vital Signs 04/02/18 16:00 04/02/18 16:10 04/02/18 16:30 Temperature 96.8 F L Pulse Rate 120 H 110 H Respiratory Rate 20 20 Blood Pressure Pulse Oximetry 98 98 04/02/18 20:00 04/02/18 20:35 04/02/18 20:39 Temperature 97.0 F L Pulse Rate 114 H 111 H Respiratory Rate 20 20 20 Blood Pressure 130/69 Pulse Oximetry 98 98 04/02/18 22:30 04/03/18 00:00 04/03/18 00:22 Temperature 98.3 F Pulse Rate 112 H Respiratory Rate 20 20 20 Blood Pressure 134/71 Pulse Oximetry 99 99 99 04/03/18 03:27 04/03/18 04:00 04/03/18 07:00 Temperature 98.7 F 99.6 F Pulse Rate 105 H 111 H 101 H Respiratory Rate 20 20 20 Blood Pressure 142/71 H 120/65 Pulse Oximetry 98 98 99 04/03/18 08:00 04/03/18 08:03 04/03/18 08:36 Temperature 98.7 F Pulse Rate 105 H Respiratory Rate 20 Blood Pressure 142/71 H 83/56 L Pulse Oximetry 98 99 04/03/18 08:37 04/03/18 08:45 04/03/18 08:58 Temperature Pulse Rate 97 H 99 H Respiratory Rate 16 20 20 Blood Pressure Pulse Oximetry 100 100 04/03/18 09:00 04/03/18 09:15 04/03/18 09:30 Temperature Pulse Rate 105 H 105 H 106 H Respiratory Rate 20 20 20 Blood Pressure Pulse Oximetry 100 100 100 04/03/18 09:45 04/03/18 10:00 04/03/18 10:15 Temperature Pulse Rate 107 H 108 H 107 H Respiratory Rate 20 20 20 Blood Pressure Pulse Oximetry 100 100 100 04/03/18 10:30 04/03/18 10:45 04/03/18 10:59 Temperature Pulse Rate 109 H 109 H 104 H Respiratory Rate 20 20 20 Blood Pressure Pulse Oximetry 100 100 04/03/18 11:00 04/03/18 11:15 04/03/18 11:30 Temperature Pulse Rate 107 H 105 H 104 H Respiratory Rate 20 20 20 Blood Pressure Pulse Oximetry 100 100 100 04/03/18 11:45 04/03/18 11:49 04/03/18 11:56 Temperature Pulse Rate 104 H 111 H 116 H Respiratory Rate 20 20 20 Blood Pressure 183/116 H 102/64 Pulse Oximetry 100 100 100 04/03/18 12:00 04/03/18 12:15 04/03/18 12:16 Temperature 98.5 F Pulse Rate 114 H 106 H Respiratory Rate 20 16 20 Blood Pressure Pulse Oximetry 100 100 100 Intake & Output 04/02/18 04/03/18 04/03/18 18:59 06:59 18:59 Intake Total 2500 / 2500 1983 / 1983 750 / 750 Output Total 1545 / 1545 2085 / 208 Balance 955 / 955 -101 / -101 750 / 750 Weight 73 kg Intake: IV 2500 / 2500 1983 / 1983 750 / 750 Cordarone Inj 450 MG In D5W Inj 250 / 250 250 / 250 241 ML @ 1 MG/MIN 33.33 mls/hr IV.CONT TITRATE PRN Rx#: [id number] D5W/1/2 NS Inj 1,000 ML @ 100 1000 / 1000 1000 / 1000 mls/hr IV.CONT .Q10H LAURA Rx#: [id number] EPINEPHrine (1:1000) Inj 4 MG 500 / 500 250 / 250 500 / 500 In D5W Inj 246 ML @ 3 MCG/MIN 11.25 mls/hr IV.CONT TITRATE PRN Rx#:[id number] Levophed Inj 16 MG In NS Inj 250 / 250 250 / 250 234 ML @ 2 MCG/MIN 1.87 mls/hr IV.CONT TITRATE PRN Rx#: [id number] Neosynephrine Inj 160 MG In NS 500 / 500 484 / 484 Inj 484 ML @ 40 MCG/MIN 7.5 mls /hr IV.CONT TITRATE PRN Rx#: [id number] Oral 0 / 0 0 / 0 Output: Urine Amount (Catheter) 1545 / 1545 2084 1545 1545 / 154 Indwelling Temp Sensing 2084 Catheter Other: # Bowel Movements 0 0 Physical Exam: CONSTITUTIONAL/GENERAL: This is an adequately nourished patient, in no apparent distress. TUBES/LINES/DRAINS: OETT, OGT, cuevas, central line SKIN: No jaundice, rashes, or lesions. Ecchymoses on upper extremities. No wounds seen anteriorly. Skin temperature appropriate. Not diaphoretic. HEAD: Atraumatic. Normocephalic. EYES: pupils fixed and dilated. +scleredema. No scleral icterus. Fundi not examined. ENT: unable to assess hearing. Nose without bleeding or purulent drainage. Throat exam inhibited by ETT NECK: Trachea midline. Supple, nontender. CARDIOVASCULAR: RRR without murmurs, gallops, or rubs. No JVD. Peripheral pulses symmetric. RESPIRATORY/CHEST: Symmetric, unlabored respirations. Clear to auscultation. Breath sounds equal bilaterally. No wheezes, rales, or rhonchi. GASTROINTESTINAL: Abdomen soft, non-tender, nondistended. No hepato-splenomegaly , or palpable masses. No guarding. Bowel sounds present. GENITOURINARY: Without palpable bladder distension. Cuevas catheter in place. MUSCULOSKELETAL: Extremities without clubbing, cyanosis.+ bue edema. No joint tenderness or effusion noted. No calf tenderness. No mottling or clubbing. NEUROLOGICAL: unresponsive. does not withdraw to pain PSYCHIATRIC:unable to assess Diagnostic Tests Laboratory: Laboratory Results - last 72 hr 04/01/18 04/01/18 04/01/18 01:50 02:37 02:37 WBC 11.5 H RBC 4.71 Hgb 13.9 D Hct 42.9 MCV 91.1 MCH 29.6 MCHC 32.5 RDW 15.7 Plt Count 182 D MPV 7.9 Neut % (Auto) Lymph % (Auto) [place] % (Auto) Eos % (Auto) Baso % (Auto) Neut # (Auto) Lymph # (Auto) [place] # (Auto) Eos # (Auto) Baso # (Auto) WBC Differential Differential Comment PT INR APTT Fibrinogen Puncture Site Right radial Patient Temperature 98.6 O2 Saturation 97 ABG pH 7.29 L* ABG pCO2 41 ABG pO2 178 H ABG HCO3 19 L ABG O2 Content 18.6 ABG Base Excess -6.4 L ABG Methemoglobin 1.5 Damian Test Present Hemoglobin 13.4 Carboxyhemoglobin 0.4 O2 Delivery Device Ventilator Vent Setting Prvc/ac20/500/ Inspired O2 100 Critical Value Yes Sodium 148 H Potassium 2.3 L* D Chloride 111 H Carbon Dioxide 21.4 Anion Gap 16 H BUN 13 Creatinine 1.55 H Estimated GFR 45 L POC Glucose Random Glucose 452 H* Lactic Acid Calcium 7.3 L* Calcium Adj for Albumin 8.2 L Phosphorus 1.9 L Magnesium 2.0 Total Bilirubin 0.7 AST 1589 H ALT 1540 H Alkaline Phosphatase 106 Troponin I 3.29 H* Total Protein 6.0 L D Albumin 2.9 L D Nasal Screen MRSA (PCR) Hepatitis A IgM Ab Hep Bs Antigen Hep B Core IgM Ab Hep C IgG Ab 04/01/18 04/01/18 04/01/18 02:37 02:37 02:37 WBC RBC Hgb Hct MCV MCH MCHC RDW Plt Count MPV Neut % (Auto) Lymph % (Auto) [place] % (Auto) Eos % (Auto) Baso % (Auto) Neut # (Auto) Lymph # (Auto) [place] # (Auto) Eos # (Auto) Baso # (Auto) WBC Differential Differential Comment PT 17.1 H INR 1.7 APTT 33.7 H Fibrinogen 115 L Puncture Site Patient Temperature O2 Saturation ABG pH ABG pCO2 ABG pO2 ABG HCO3 ABG O2 Content ABG Base Excess ABG Methemoglobin Damian Test Hemoglobin Carboxyhemoglobin O2 Delivery Device Vent Setting Inspired O2 Critical Value Sodium Potassium Chloride Carbon Dioxide Anion Gap BUN Creatinine Estimated GFR POC Glucose Random Glucose Lactic Acid Calcium Calcium Adj for Albumin Phosphorus Magnesium Total Bilirubin AST ALT Alkaline Phosphatase Troponin I Cancelled Total Protein Albumin Nasal Screen MRSA (PCR) Hepatitis A IgM Ab Hep Bs Antigen Hep B Core IgM Ab Hep C IgG Ab 04/01/18 04/01/18 04/01/18 03:15 06:00 07:46 WBC RBC Hgb Hct MCV MCH MCHC RDW Plt Count MPV Neut % (Auto) Lymph % (Auto) [place] % (Auto) Eos % (Auto) Baso % (Auto) Neut # (Auto) Lymph # (Auto) [place] # (Auto) Eos # (Auto) Baso # (Auto) WBC Differential Differential Comment PT INR APTT Fibrinogen Puncture Site Patient Temperature O2 Saturation ABG pH ABG pCO2 ABG pO2 ABG HCO3 ABG O2 Content ABG Base Excess ABG Methemoglobin Damian Test Hemoglobin Carboxyhemoglobin O2 Delivery Device Vent Setting Inspired O2 Critical Value Sodium Potassium Chloride Carbon Dioxide Anion Gap BUN Creatinine Estimated GFR POC Glucose 394 H Random Glucose Lactic Acid 11.2 H* Calcium Calcium Adj for Albumin Phosphorus Magnesium Total Bilirubin AST ALT Alkaline Phosphatase Troponin I Total Protein Albumin Nasal Screen MRSA (PCR) Hepatitis A IgM Ab Nonreactive Hep Bs Antigen Nonreactive Hep B Core IgM Ab Nonreactive Hep C IgG Ab Nonreactive 04/01/18 04/01/18 04/01/18 08:30 09:00 09:00 WBC RBC Hgb Hct MCV MCH MCHC RDW Plt Count MPV Neut % (Auto) Lymph % (Auto) [place] % (Auto) Eos % (Auto) Baso % (Auto) Neut # (Auto) Lymph # (Auto) [place] # (Auto) Eos # (Auto) Baso # (Auto) WBC Differential Differential Comment PT INR APTT Fibrinogen Puncture Site Patient Temperature O2 Saturation ABG pH ABG pCO2 ABG pO2 ABG HCO3 ABG O2 Content ABG Base Excess ABG Methemoglobin Damian Test Hemoglobin Carboxyhemoglobin O2 Delivery Device Vent Setting Inspired O2 Critical Value Sodium Potassium Chloride Carbon Dioxide Anion Gap BUN Creatinine Estimated GFR POC Glucose Random Glucose Lactic Acid 11.2 H* Calcium Calcium Adj for Albumin Phosphorus Magnesium Total Bilirubin AST ALT Alkaline Phosphatase Troponin I 19.00 H* Total Protein Albumin Nasal Screen MRSA (PCR) Not detected Hepatitis A IgM Ab Hep Bs Antigen Hep B Core IgM Ab Hep C IgG Ab 04/01/18 04/01/18 04/01/18 09:21 10:17 11:08 WBC RBC Hgb Hct MCV MCH MCHC RDW Plt Count MPV Neut % (Auto) Lymph % (Auto) [place] % (Auto) Eos % (Auto) Baso % (Auto) Neut # (Auto) Lymph # (Auto) [place] # (Auto) Eos # (Auto) Baso # (Auto) WBC Differential Differential Comment PT INR APTT Fibrinogen Puncture Site Patient Temperature O2 Saturation ABG pH ABG pCO2 ABG pO2 ABG HCO3 ABG O2 Content ABG Base Excess ABG Methemoglobin Damian Test Hemoglobin Carboxyhemoglobin O2 Delivery Device Vent Setting Inspired O2 Critical Value Sodium Potassium Chloride Carbon Dioxide Anion Gap BUN Creatinine Estimated GFR POC Glucose 311 H 337 H 337 H Random Glucose Lactic Acid Calcium Calcium Adj for Albumin Phosphorus Magnesium Total Bilirubin AST ALT Alkaline Phosphatase Troponin I Total Protein Albumin Nasal Screen MRSA (PCR) Hepatitis A IgM Ab Hep Bs Antigen Hep B Core IgM Ab Hep C IgG Ab 04/01/18 04/01/18 04/01/18 12:13 13:30 14:10 WBC RBC Hgb Hct MCV MCH MCHC RDW Plt Count MPV Neut % (Auto) Lymph % (Auto) [place] % (Auto) Eos % (Auto) Baso % (Auto) Neut # (Auto) Lymph # (Auto) [place] # (Auto) Eos # (Auto) Baso # (Auto) WBC Differential Differential Comment PT INR APTT Fibrinogen Puncture Site Patient Temperature O2 Saturation ABG pH ABG pCO2 ABG pO2 ABG HCO3 ABG O2 Content ABG Base Excess ABG Methemoglobin Damian Test Hemoglobin Carboxyhemoglobin O2 Delivery Device Vent Setting Inspired O2 Critical Value Sodium Potassium Chloride Carbon Dioxide Anion Gap BUN Creatinine Estimated GFR POC Glucose 279 H 270 H 240 H Random Glucose Lactic Acid Calcium Calcium Adj for Albumin Phosphorus Magnesium Total Bilirubin AST ALT Alkaline Phosphatase Troponin I Total Protein Albumin Nasal Screen MRSA (PCR) Hepatitis A IgM Ab Hep Bs Antigen Hep B Core IgM Ab Hep C IgG Ab 04/01/18 04/01/18 04/01/18 14:59 15:25 15:57 WBC RBC Hgb Hct MCV MCH MCHC RDW Plt Count MPV Neut % (Auto) Lymph % (Auto) [place] % (Auto) Eos % (Auto) Baso % (Auto) Neut # (Auto) Lymph # (Auto) [place] # (Auto) Eos # (Auto) Baso # (Auto) WBC Differential Differential Comment PT INR APTT Fibrinogen Puncture Site Patient Temperature O2 Saturation ABG pH ABG pCO2 ABG pO2 ABG HCO3 ABG O2 Content ABG Base Excess ABG Methemoglobin Damian Test Hemoglobin Carboxyhemoglobin O2 Delivery Device Vent Setting Inspired O2 Critical Value Sodium Potassium 2.5 L* Chloride Carbon Dioxide Anion Gap BUN Creatinine Estimated GFR POC Glucose 218 H 184 H Random Glucose Lactic Acid Calcium Calcium Adj for Albumin Phosphorus 0.7 L D Magnesium Total Bilirubin AST ALT Alkaline Phosphatase Troponin I Total Protein Albumin Nasal Screen MRSA (PCR) Hepatitis A IgM Ab Hep Bs Antigen Hep B Core IgM Ab Hep C IgG Ab 04/01/18 04/01/18 04/01/18 17:00 17:53 19:50 WBC RBC Hgb Hct MCV MCH MCHC RDW Plt Count MPV Neut % (Auto) Lymph % (Auto) [place] % (Auto) Eos % (Auto) Baso % (Auto) Neut # (Auto) Lymph # (Auto) [place] # (Auto) Eos # (Auto) Baso # (Auto) WBC Differential Differential Comment PT INR APTT Fibrinogen Puncture Site Patient Temperature O2 Saturation ABG pH ABG pCO2 ABG pO2 ABG HCO3 ABG O2 Content ABG Base Excess ABG Methemoglobin Damian Test Hemoglobin Carboxyhemoglobin O2 Delivery Device Vent Setting Inspired O2 Critical Value Sodium Potassium Chloride Carbon Dioxide Anion Gap BUN Creatinine Estimated GFR POC Glucose 167 H 148 H 91 Random Glucose Lactic Acid Calcium Calcium Adj for Albumin Phosphorus Magnesium Total Bilirubin AST ALT Alkaline Phosphatase Troponin I Total Protein Albumin Nasal Screen MRSA (PCR) Hepatitis A IgM Ab Hep Bs Antigen Hep B Core IgM Ab Hep C IgG Ab 04/01/18 04/01/18 04/01/18 20:26 20:36 22:18 WBC RBC Hgb Hct MCV MCH MCHC RDW Plt Count MPV Neut % (Auto) Lymph % (Auto) [place] % (Auto) Eos % (Auto) Baso % (Auto) Neut # (Auto) Lymph # (Auto) [place] # (Auto) Eos # (Auto) Baso # (Auto) WBC Differential Differential Comment PT INR APTT Fibrinogen Puncture Site Art line Patient Temperature 98.6 O2 Saturation 98 ABG pH 7.37 L ABG pCO2 34 L ABG pO2 141 H ABG HCO3 19 L ABG O2 Content 16.5 ABG Base Excess -5.5 L ABG Methemoglobin 0.5 Damian Test Hemoglobin 11.8 L Carboxyhemoglobin 0.8 O2 Delivery Device Ventilator Vent Setting Prvc/ac/20/500/ Inspired O2 50 Critical Value No Sodium Potassium Chloride Carbon Dioxide Anion Gap BUN Creatinine Estimated GFR POC Glucose 89 80 Random Glucose Lactic Acid Calcium Calcium Adj for Albumin Phosphorus Magnesium Total Bilirubin AST ALT Alkaline Phosphatase Troponin I Total Protein Albumin Nasal Screen MRSA (PCR) Hepatitis A IgM Ab Hep Bs Antigen Hep B Core IgM Ab Hep C IgG Ab 04/02/18 04/02/18 04/02/18 00:58 02:31 04:05 WBC 12.6 H RBC 4.53 Hgb 13.3 Hct 40.2 MCV 88.8 MCH 29.4 MCHC 33.2 RDW 15.5 Plt Count 104 L D MPV 8.2 Neut % (Auto) 66.2 Lymph % (Auto) 27.9 [place] % (Auto) 3.8 Eos % (Auto) 1.8 Baso % (Auto) 0.3 Neut # (Auto) 8.3 H Lymph # (Auto) 3.5 [place] # (Auto) 0.5 Eos # (Auto) 0.2 Baso # (Auto) 0.0 WBC Differential . Differential Comment Auto diff final PT INR APTT Fibrinogen Puncture Site Patient Temperature O2 Saturation ABG pH ABG pCO2 ABG pO2 ABG HCO3 ABG O2 Content ABG Base Excess ABG Methemoglobin Damian Test Hemoglobin Carboxyhemoglobin O2 Delivery Device Vent Setting Inspired O2 Critical Value Sodium Potassium Chloride Carbon Dioxide Anion Gap BUN Creatinine Estimated GFR POC Glucose 73 109 Random Glucose Lactic Acid Calcium Calcium Adj for Albumin Phosphorus Magnesium Total Bilirubin AST ALT Alkaline Phosphatase Troponin I Total Protein Albumin Nasal Screen MRSA (PCR) Hepatitis A IgM Ab Hep Bs Antigen Hep B Core IgM Ab Hep C IgG Ab 04/02/18 04/02/18 04/02/18 04:05 04:05 04:20 WBC RBC Hgb Hct MCV MCH MCHC RDW Plt Count MPV Neut % (Auto) Lymph % (Auto) [place] % (Auto) Eos % (Auto) Baso % (Auto) Neut # (Auto) Lymph # (Auto) [place] # (Auto) Eos # (Auto) Baso # (Auto) WBC Differential Differential Comment PT 20.6 H INR 2.0 APTT 45.6 H D Fibrinogen Puncture Site Patient Temperature O2 Saturation ABG pH ABG pCO2 ABG pO2 ABG HCO3 ABG O2 Content ABG Base Excess ABG Methemoglobin Damian Test Hemoglobin Carboxyhemoglobin O2 Delivery Device Vent Setting Inspired O2 Critical Value Sodium 153 H Potassium 3.9 D Chloride 122 H D Carbon Dioxide 19.3 L Anion Gap 12 BUN 18 Creatinine 1.90 H Estimated GFR 35 L POC Glucose 102 Random Glucose 108 H D Lactic Acid Calcium 6.7 L* Calcium Adj for Albumin 8.2 L Phosphorus 3.9 D Magnesium 0.9 L D Total Bilirubin 0.7 AST 399 H ALT 639 H Alkaline Phosphatase 63 Troponin I Total Protein 4.8 L D Albumin 2.1 L D Nasal Screen MRSA (PCR) Hepatitis A IgM Ab Hep Bs Antigen Hep B Core IgM Ab Hep C IgG Ab 04/02/18 04/02/18 04/02/18 06:26 09:00 11:42 WBC RBC Hgb Hct MCV MCH MCHC RDW Plt Count MPV Neut % (Auto) Lymph % (Auto) [place] % (Auto) Eos % (Auto) Baso % (Auto) Neut # (Auto) Lymph # (Auto) [place] # (Auto) Eos # (Auto) Baso # (Auto) WBC Differential Differential Comment PT INR APTT Fibrinogen Puncture Site Patient Temperature O2 Saturation ABG pH ABG pCO2 ABG pO2 ABG HCO3 ABG O2 Content ABG Base Excess ABG Methemoglobin Damian Test Hemoglobin Carboxyhemoglobin O2 Delivery Device Vent Setting Inspired O2 Critical Value Sodium Potassium Chloride Carbon Dioxide Anion Gap BUN Creatinine Estimated GFR POC Glucose 92 164 H Random Glucose Lactic Acid 5.5 H* Calcium Calcium Adj for Albumin Phosphorus Magnesium Total Bilirubin AST ALT Alkaline Phosphatase Troponin I Total Protein Albumin Nasal Screen MRSA (PCR) Hepatitis A IgM Ab Hep Bs Antigen Hep B Core IgM Ab Hep C IgG Ab 04/02/18 04/02/18 04/03/18 12:00 18:58 04:11 WBC RBC Hgb Hct MCV MCH MCHC RDW Plt Count MPV Neut % (Auto) Lymph % (Auto) [place] % (Auto) Eos % (Auto) Baso % (Auto) Neut # (Auto) Lymph # (Auto) [place] # (Auto) Eos # (Auto) Baso # (Auto) WBC Differential Differential Comment PT INR APTT Fibrinogen Puncture Site Patient Temperature O2 Saturation ABG pH ABG pCO2 ABG pO2 ABG HCO3 ABG O2 Content ABG Base Excess ABG Methemoglobin Damian Test Hemoglobin Carboxyhemoglobin O2 Delivery Device Vent Setting Inspired O2 Critical Value Sodium 153 H Potassium 4.0 Chloride 122 H Carbon Dioxide 20.6 L Anion Gap 10 BUN 17 Creatinine 1.63 H Estimated GFR 42 L POC Glucose 161 H Random Glucose 199 H Lactic Acid 5.4 H* Calcium 7.2 L* Calcium Adj for Albumin 8.8 Phosphorus Magnesium 1.9 D Total Bilirubin AST ALT Alkaline Phosphatase Troponin I Total Protein Albumin 2.0 L Nasal Screen MRSA (PCR) Hepatitis A IgM Ab Hep Bs Antigen Hep B Core IgM Ab Hep C IgG Ab 04/03/18 04/03/18 04/03/18 07:54 10:45 10:45 WBC 9.0 RBC 4.29 L Hgb 12.6 L Hct 38.1 L MCV 88.9 MCH 29.4 MCHC 33.0 RDW 16.0 Plt Count 70 L D MPV 8.6 Neut % (Auto) Lymph % (Auto) [place] % (Auto) Eos % (Auto) Baso % (Auto) Neut # (Auto) Lymph # (Auto) [place] # (Auto) Eos # (Auto) Baso # (Auto) WBC Differential Differential Comment PT INR APTT Fibrinogen Puncture Site Patient Temperature O2 Saturation ABG pH ABG pCO2 ABG pO2 ABG HCO3 ABG O2 Content ABG Base Excess ABG Methemoglobin Damian Test Hemoglobin Carboxyhemoglobin O2 Delivery Device Vent Setting Inspired O2 Critical Value Sodium 160 H* Potassium 4.4 Chloride 128 H Carbon Dioxide 23.5 Anion Gap 9 BUN 13 Creatinine 1.44 H Estimated GFR 48 L POC Glucose 187 H Random Glucose 212 H Lactic Acid Calcium 7.2 L* Calcium Adj for Albumin 8.9 Phosphorus Magnesium Total Bilirubin AST ALT Alkaline Phosphatase Troponin I Total Protein Albumin 1.9 L Nasal Screen MRSA (PCR) Hepatitis A IgM Ab Hep Bs Antigen Hep B Core IgM Ab Hep C IgG Ab 04/03/18 13:08 WBC RBC Hgb Hct MCV MCH MCHC RDW Plt Count MPV Neut % (Auto) Lymph % (Auto) [place] % (Auto) Eos % (Auto) Baso % (Auto) Neut # (Auto) Lymph # (Auto) [place] # (Auto) Eos # (Auto) Baso # (Auto) WBC Differential Differential Comment PT INR APTT Fibrinogen Puncture Site Patient Temperature O2 Saturation ABG pH ABG pCO2 ABG pO2 ABG HCO3 ABG O2 Content ABG Base Excess ABG Methemoglobin Damian Test Hemoglobin Carboxyhemoglobin O2 Delivery Device Vent Setting Inspired O2 Critical Value Sodium Potassium Chloride Carbon Dioxide Anion Gap BUN Creatinine Estimated GFR POC Glucose 176 H Random Glucose Lactic Acid Calcium Calcium Adj for Albumin Phosphorus Magnesium Total Bilirubin AST ALT Alkaline Phosphatase Troponin I Total Protein Albumin Nasal Screen MRSA (PCR) Hepatitis A IgM Ab Hep Bs Antigen Hep B Core IgM Ab Hep C IgG Ab Result Diagrams: 04/03/18 10:45 04/03/18 10:45 Microbiology: Microbiology 04/01/18 06:18 Aerobic Blood Culture - Preliminary Blood - Peripheral No growth in 2 days Anaerobic Blood Culture - Preliminary No growth in 2 days 04/01/18 06:00 Aerobic Blood Culture - Preliminary Blood - Peripheral No growth in 2 days Anaerobic Blood Culture - Preliminary No growth in 2 days 04/01/18 06:16 Urine Culture - Final Catheterized Urine No growth in 48 hours Imaging: ITS Impressions Chest X-Ray 04/01/18 02:59 CONCLUSION: 1. Interval placement of a left IJ central venous catheter with the tip projecting over the central venous system. No pneumothorax. 2. Persistent bilateral prominent perihilar airspace disease. Head CT 04/01/18 03:08 CONCLUSION: 1. 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 Small amount of subarachnoid hemorrhage. Associated ventriculomegaly. 2. Periventricular edema with loss of the teresa-white differentiation may be related to diffuse anoxia. . . Procedures: 04/01 art line placed 04/01 central line placed 04/01 intubated Assessment and Plan - Disease Oriented Problem List (1) Respiratory failure (2) Intracerebral hemorrhage (3) Anoxia of brain (4) Congestive heart failure Comment: per EVAC Pertinent Non-Medical Issues: Psychosocial: Pt was living in a residential. Has 1 brother/friend who is local. Pt [place] from [facility]. Spiritual: pastoral care available Legal: Pt is not capacitated to make decisions and it is unlikely he will regain capacity. Per [place] statutes proxy medical decision falls to his daughter Shae in [place] Ethical issues impacting care: none Important Contacts: daughter - Emily Licona (international number) Xu Lynch [phone] friend Prognosis: 67 y/o male who presented 04/01 after suffering brain bleed and subsequent cardiac arrest. Currently intubated, on pressors. Has no evidence intact brainstem reflexes, EEG severely abnormal and nearly flat. If compassionately removed from life support, expect he would imminently. Grave prognosis. Code Status: Full Code Plan: - LEGAL DECISION MAKER - Pt is not capacitated to make decisions and it is unlikely he will regain capacity. Proxy medical decision making falls to his daughter Emily Kaufman in [facility]. - CODE STATUS- no code/DNR - GOALS - I was able to contact the daughter by telephone with santos Bakermicrophone operator. She now wishes to participate in medical decision making. I provided medical update. I repeatedly explained that he had no brainstem reflexes. Discussed poor prognosis, CODE STATUS at length. She says she is unable to make any decisions without seeing him first and requests a letter explaining that he is critically ill so she can take it to the consulate and arrange to come to see him. - SYMPTOMS - * dyspnea - respiratory failure after brain bleed, cardiac arrest. on pressors. intubated. * encephalopathy - pt w/o brain stem reflexes and severely abnormal EEG. Should family want to be aggressive, next step per neurology would be cerebral perfusion blood study. - d/w RN, d/w Dr Carlton - Palliative care will continue to follow during hospital course as condition evolves, to assist patient/decision-maker with understanding of medical conditions, weighing benefits/burdens of treatment options, for clarification of goals of treatment. Additionally will assist with any symptoms of palliative concern Time Spent Total Floor Time (mins): 60 Face to Face Time (mins): 90 >50% Time in Counseling or Coordination of Care: Yes
--- NOTE | 2018-04-03 13:55 | P.PNNEU ---
Subjective Subjective Comments: no neurologic changes Active Medications: Active Medications Al Hydroxide/Mg Hydroxide (Milk Of Magnzan Liq) 30 ml PO Q12H PRN PRN Reason: Mild Constipation Albuterol (Albuterol Neb (Prn)) 2.5 mg NEB Q2HR NEB PRN PRN Reason: SHORTNESS OF BREATH/WHEEZING Albuterol (Duoneb Neb (Laura)) 1 ampul NEB Q6HR NEB LAURA Last Admin: 04/03/18 11:30 Dose: 1 ampul Bisacodyl (Dulcolax Supp) 10 mg RECTAL DAILY PRN PRN Reason: SEVERE CONSITIPATION Chlorhexidine Gluconate (Chlorhexidine 2% Cloth) 3 pack TOPICAL DAILY@0400 LAURA Stop: 04/06/18 03:59 Last Admin: 04/03/18 04:00 Dose: 3 pack Chlorhexidine Gluconate (Chlorhexidine 2% Cloth) 3 pack TOPICAL DAILY@0400 PRN PRN Reason: Extra cloth needed Stop: 04/06/18 03:59 Chlorhexidine Gluconate (Peridex 0.12% Oral Kit) 15 ml OROPHARYNG BID@0800, 2000 [facility] Last Admin: 04/03/18 12:20 Dose: 15 ml Dextrose (D50w Vial) 50 ml IV.PUSH UNSCH PRN PRN Reason: PER HYPOGLYCEMIA PROTOCOL Last Admin: 04/02/18 01:07 Dose: 50 ml Fentanyl Citrate (Fentanyl Inj) 50 mcg IV PUSH Q1H PRN PRN Reason: Pain scale 6-10, &/or sedation Glucagon (Glucagon Inj) 1 mg OTHER PRN PRN PRN Reason: for Hypoglycemia Protocol Phenylephrine HCl 160 mg/ (Sodium Chloride) 500 mls @ 7.5 mls/hr IV.CONT TITRATE PRN; Protocol PRN Reason: Per Protocol Last Admin: 04/03/18 03:28 Dose: 140 mcg/min, 26.25 mls/hr Epinephrine HCl 4 mg/ Dextrose 250 mls @ 11.25 mls/hr IV.CONT TITRATE PRN; Protocol PRN Reason: Per Protocol Last Admin: 04/03/18 12:59 Dose: 10 mcg/min, 37.5 mls/hr Amiodarone HCl 450 mg/ (Dextrose) 250 mls @ 33.33 mls/hr IV.CONT TITRATE PRN; Protocol PRN Reason: Per Protocol Last Admin: 04/03/18 06:40 Dose: 0.5 mg/min, 16.66 mls/hr Magnesium Sulfate 4 gm/ Sodium (Chloride) 100 mls @ 50 mls/hr IV.SIG UNSCH PRN PRN Reason: For Magnesium 0.9 - 1.1 mg/dL Magnesium Sulfate 2 gm/ Sodium (Chloride) 100 mls @ 50 mls/hr IV.SIG UNSCH PRN PRN Reason: For Magnesium 1.2 - 1.6 mg/dL Potassium Chloride (Kcl 40 Meq Premix Inj) 40 meq in 100 mls @ 25 mls/hr IV.SIG Q2H PRN PRN Reason: For Potassium 2.8 - 3.2 mEq/L Last Admin: 04/01/18 16:25 Dose: 25 mls/hr Potassium Chloride (Kcl 20 Meq Premix Inj) 20 meq in 100 mls @ 50 mls/hr IV.SIG Q2H PRN PRN Reason: For Potassium 3.3 - 3.5 mEq/L Potassium Chloride (Kcl 40 Meq Premix Inj) 40 meq in 100 mls @ 25 mls/hr IV.SIG UNSCH PRN PRN Reason: For Potassium 3.3 - 3.5 mEq/L Potassium Phosphate 30 mmol/ (Sodium Chloride) 260 mls @ 42 mls/hr IV.SIG UNSCH PRN PRN Reason: SEE LABEL COMMENTS Last Admin: 04/01/18 16:51 Dose: 42 mls/hr Sodium Phosphate 30 mmol/ (Sodium Chloride) 260 mls @ 42 mls/hr IV.SIG UNSCH PRN PRN Reason: For Phosphorus < 2.5 mg/dL Potassium Chloride (Kcl 20 Meq Premix Inj) 20 meq in 100 mls @ 50 mls/hr IV.SIG Q2H PRN PRN Reason: For Potassium 2.8 - 3.2 mEq/L Insulin Human Regular 100 unit (/ Sodium Chloride) 100 mls @ 0 mls/hr IV.CONT TITRATE PRN; Protocol PRN Reason: See protocol Last Titration: 04/02/18 07:21 Dose: 0 units/hr, 0 mls/hr Norepinephrine Bitartrate 16 (mg/ Sodium Chloride) 250 mls @ 1.87 mls/hr IV.CONT TITRATE PRN; Protocol PRN Reason: See Protocol Last Admin: 04/03/18 12:57 Dose: 15 mcg/min, 14.06 mls/hr Dopamine HCl/Dextrose (Dopamine 800 Mg/500 Ml Premix) 800 mg in 500 mls @ 7.819 mls/hr IV.CONT TITRATE PRN; Protocol PRN Reason: Per Protocol Last Titration: 04/02/18 08:28 Dose: 5 mcg/kg/min, 13.03 mls/hr Fentanyl (Fentanyl 10 Mcg/Ml Premix Drip) 2,500 mcg in 250 mls @ 5 mls/hr IV.SIG TITRATE PRN; Protocol PRN Reason: Per Protocol Last Admin: 04/03/18 12:04 Dose: 50 mcg/hr, 5 mls/hr Dextrose (D5w Inj) 1,000 mls @ 100 mls/hr IV.CONT .Q10H [facility] Last Admin: 04/03/18 12:18 Dose: 100 mls/hr Lactulose (Lactulose Liq) 30 ml PO DAILY PRN PRN Reason: SEVERE CONSITIPATION Magnesium Oxide (Mag-Ox) 800 mg PO UNSCH PRN PRN Reason: For Magnesium 1.2 - 1.6 mg/dL Miscellaneous Medication () 1 each OROPHARYNG 0000,0400,1200,1600 [facility] Last Admin: 04/03/18 12:21 Dose: 1 each Ondansetron HCl (Zofran Inj) 4 mg IV.PUSH Q6H PRN PRN Reason: NAUSEA OR VOMITING Pantoprazole Sodium (Protonix Inj) 40 mg IV.PUSH DAILY [facility] Last Admin: 04/02/18 08:42 Dose: 40 mg Potassium Chloride (Kcl Liq) 40 meq PO UNSCH PRN PRN Reason: Potassium level 3.3-3.5 mEq/L Potassium Chloride (Kcl Liq) 40 meq PO UNSCH PRN PRN Reason: POTASSIUM LESS THAN 3.5 Potassium Phosphate (K-Phos Original) 2,000 mg PO Q4H PRN PRN Reason: Phosphorus Less Than 2.5 mg/dL Potassium Phosphate (K-Phos Original) 2,000 mg PO UNSCH PRN PRN Reason: SEE LABEL COMMENTS Senna/Docusate Sodium (Barbara-Colace) 1 tab PO BID [facility] Last Admin: 04/03/18 12:20 Dose: Not Given Sennosides (Senokot) 17.2 mg PO Q12H PRN PRN Reason: Moderate Constipation Sodium Chloride (Ns Flush) 2 ml IV.FLUSH BID LAURA Last Admin: 04/03/18 12:20 Dose: 2 ml Sodium Chloride (Ns Flush) 2 ml IV.FLUSH PRN PRN PRN Reason: FLUSH AFTER USING IV ACCESS Last Admin: 04/02/18 08:43 Dose: 2 ml Terbutaline Sulfate (Brethine Inj) 1 mg SQ UNSCH PRN PRN Reason: Extravasation Allergies/Adverse Reactions: Allergies Allergy/AdvReac Type Severity Reaction Status Date / Time No Known Allergies Allergy Verified 03/31/18 23:56 Physical Exam Vital signs: Vital Signs 04/02/18 16:00 04/02/18 16:10 04/02/18 16:30 Temperature 96.8 F L Pulse Rate 120 H 110 H Respiratory Rate 20 20 Blood Pressure Pulse Oximetry 98 98 04/02/18 20:00 04/02/18 20:35 04/02/18 20:39 Temperature 97.0 F L Pulse Rate 114 H 111 H Respiratory Rate 20 20 20 Blood Pressure 130/69 Pulse Oximetry 98 98 04/02/18 22:30 04/03/18 00:00 04/03/18 00:22 Temperature 98.3 F Pulse Rate 112 H Respiratory Rate 20 20 20 Blood Pressure 134/71 Pulse Oximetry 99 99 99 04/03/18 03:27 04/03/18 04:00 04/03/18 07:00 Temperature 98.7 F 99.6 F Pulse Rate 105 H 111 H 101 H Respiratory Rate 20 20 20 Blood Pressure 142/71 H 120/65 Pulse Oximetry 98 98 99 04/03/18 08:00 04/03/18 08:03 04/03/18 08:36 Temperature 98.7 F Pulse Rate 105 H Respiratory Rate 20 Blood Pressure 142/71 H 83/56 L Pulse Oximetry 98 99 04/03/18 08:37 04/03/18 08:45 04/03/18 08:58 Temperature Pulse Rate 97 H 99 H Respiratory Rate 16 20 20 Blood Pressure Pulse Oximetry 100 100 04/03/18 09:00 04/03/18 09:15 04/03/18 09:30 Temperature Pulse Rate 105 H 105 H 106 H Respiratory Rate 20 20 20 Blood Pressure Pulse Oximetry 100 100 100 04/03/18 09:45 04/03/18 10:00 04/03/18 10:15 Temperature Pulse Rate 107 H 108 H 107 H Respiratory Rate 20 20 20 Blood Pressure Pulse Oximetry 100 100 100 04/03/18 10:30 04/03/18 10:45 04/03/18 10:59 Temperature Pulse Rate 109 H 109 H 104 H Respiratory Rate 20 20 20 Blood Pressure Pulse Oximetry 100 100 04/03/18 11:00 04/03/18 11:15 04/03/18 11:30 Temperature Pulse Rate 107 H 105 H 104 H Respiratory Rate 20 20 20 Blood Pressure Pulse Oximetry 100 100 100 04/03/18 11:45 04/03/18 11:49 04/03/18 11:56 Temperature Pulse Rate 104 H 111 H 116 H Respiratory Rate 20 20 20 Blood Pressure 183/116 H 102/64 Pulse Oximetry 100 100 100 04/03/18 12:00 04/03/18 12:15 04/03/18 12:16 Temperature 98.5 F Pulse Rate 114 H 106 H Respiratory Rate 20 16 20 Blood Pressure Pulse Oximetry 100 100 100 Intake & Output 04/02/18 04/03/18 04/03/18 18:59 06:59 18:59 Intake Total 2500 / 2500 1983 750 / 750 Output Total 1545 / 1545 2085 / 2085 Balance 955 / 955 -101 / -101 750 / 750 Weight 73 kg Intake: IV 2500 / 2500 1983 750 / 750 Cordarone Inj 450 MG In D5W Inj 250 / 250 250 / 250 241 ML @ 1 MG/MIN 33.33 mls/hr IV.CONT TITRATE PRN Rx#: [id number] D5W/1/2 NS Inj 1,000 ML @ 100 1000 / 1000 1000 / 1000 mls/hr IV.CONT .Q10H LAURA Rx#: [id number] EPINEPHrine (1:1000) Inj 4 MG 500 / 500 250 / 250 500 / 500 In D5W Inj 246 ML @ 3 MCG/MIN 11.25 mls/hr IV.CONT TITRATE PRN Rx#:[id number] Levophed Inj 16 MG In NS Inj 250 / 250 250 / 250 234 ML @ 2 MCG/MIN 1.87 mls/hr IV.CONT TITRATE PRN Rx#: [id number] Neosynephrine Inj 160 MG In NS 500 / 500 484 / 484 Inj 484 ML @ 40 MCG/MIN 7.5 mls /hr IV.CONT TITRATE PRN Rx#: [id number] Oral 0 / 0 0 / 0 Output: Urine Amount (Catheter) 1545 / 1545 2084 1545 1545 / 154 Indwelling Temp Sensing 2084 Catheter Other: # Bowel Movements 0 0 - Routine Neurological Exam nonresponsive to voice or sternal rub pupils 4 mm symmetric and not reactive. absent corneal reflexes. absent ciliospinal reflexes. No EOM with occulocephalics MOTOR--no posturing . no withdrawal to pain - Urinary Catheter Management Indwelling Temp Sensing Catheter Cath placed during this visit: yes Reason for continuing: Terminally ill/Comfort care Insertion date: 04/01/18 Insertion time: 03:00 1545 Cath placed during this visit: no Reason for continuing: Terminally ill/Comfort care Objective Laboratory Results - last 24 hr 04/02/18 04/03/18 04/03/18 18:58 04:11 07:54 WBC RBC Hgb Hct MCV MCH MCHC RDW Plt Count MPV Sodium 153 H Potassium 4.0 Chloride 122 H Carbon Dioxide 20.6 L Anion Gap 10 BUN 17 Creatinine 1.63 H Estimated GFR 42 L POC Glucose 161 H 187 H Random Glucose 199 H Calcium 7.2 L* Calcium Adj for Albumin 8.8 Magnesium 1.9 D Albumin 2.0 L 04/03/18 04/03/18 04/03/18 10:45 10:45 13:08 WBC 9.0 RBC 4.29 L Hgb 12.6 L Hct 38.1 L MCV 88.9 MCH 29.4 MCHC 33.0 RDW 16.0 Plt Count 70 L D MPV 8.6 Sodium 160 H* Potassium 4.4 Chloride 128 H Carbon Dioxide 23.5 Anion Gap 9 BUN 13 Creatinine 1.44 H Estimated GFR 48 L POC Glucose 176 H Random Glucose 212 H Calcium 7.2 L* Calcium Adj for Albumin 8.9 Magnesium Albumin 1.9 L Microbiology 04/01/18 06:18 Aerobic Blood Culture - Preliminary Blood - Peripheral No growth in 2 days Anaerobic Blood Culture - Preliminary No growth in 2 days 04/01/18 06:00 Aerobic Blood Culture - Preliminary Blood - Peripheral No growth in 2 days Anaerobic Blood Culture - Preliminary No growth in 2 days 04/01/18 06:16 Urine Culture - Final Catheterized Urine No growth in 48 hours Review/Management - Review/Management Plan: cerebellar and subarachnoid and intraventricular hemorrhage . prognosis very poor.
[2018-04-03] MEDS: Pantoprazole Inj 40 MG Vial IV.PUSH SCH (15:50)
[2018-04-03] MEDS: DOPamine 800 MG/500 ML Premix 800 MG/500 ML PLAST..BAG IV.CONT PRN (21:49)
[2018-04-04] MEDS: Oral Hygiene Kit OROPHARYNG SCH ×4 (00:43→17:22)
[2018-04-04 05:38] LABS: Hematocrit 38.3 % (39.0-51.0); Hemoglobin 12.6 gm/dL (13.0-17.0); Mean Corpuscular Hemoglobin 28.9 pg (27.0-34.0); Mean Corpuscular Volume 87.8 fL (80.0-100.0); Mean Platelet Volume 8.6 fL (7.0-11.0); Platelet Count 57 th/mm3 (150-450); Red Blood Count 4.36 mil/mm3 (4.50-5.90); Red Cell Distribution Width 16.4 % (11.6-17.2); White Blood Count 7.6 th/mm3 (4.0-11.0)
[2018-04-04] MEDS: Norepinephrine Inj 16 MG in Sodium Chlor 0.9% Inj 234 ML IV.CONT PRN (05:54)
[2018-04-04 06:12] LABS: Carbon Dioxide 22.4 meq/L (21.0-32.0); Potassium 4.2 meq/L (3.5-5.1)
[2018-04-04] MEDS: Chlorhexidine Gluconate 2% 1 Pack (2 Cloths) TOPICAL SCH (07:03)
[2018-04-04] MEDS: Pantoprazole Inj 40 MG Vial IV.PUSH SCH (08:38)
[2018-04-04] MEDS: Dextrose 5% in Water Inj 1,000 ML IV.CONT SCH ×2 (08:39→17:30)
[2018-04-04] MEDS: Senna/Docusate Sodium 8.6/50 MG Tablet PO SCH ×2 (08:39→21:44)
[2018-04-04] MEDS: Chlorhexidine 0.12% Oral Kit 15 ML UDC OROPHARYNG SCH ×2 (09:30→21:44)
--- NOTE | 2018-04-04 12:28 | P.PNCC ---
Subjective Subjective Remarks/Hospital Course: 67-year-old Vietnamese-speaking male with past medical history of hemorrhagic stroke, essential hypertension, hyperlipidemia, GERD, iron deficiency anemia, depression who presented to [facility] after V. fib cardiac arrest. Apparently he was found unresponsive at the snf and CPR was initiated. He was in V. fib upon [facility] arrival. Per report from ED physician, patient received 5 doses of epinephrine and at least 5 shocks per [facility] and amiodarone 300 mg IV bolus. Upon arrival to the [place] emergency department, he remained in V. fib and was given 2 doses of epinephrine 5 mg IV each, amiodarone 100 mg IV, and additional defibrillation. He then had return of spontaneous circulation. He had an additional cardiac arrest in the emergency department which again responded to epinephrine. Transferred to [facility] was requested. I was informed that total duration of ACLS was 40 minutes. He was placed on epinephrine and phenylephrine prior to transfer. Records indicate that he has been a resident at snf in [place] since and that he was transferred there from another snf facility. He is wheelchair-bound at baseline. Records indicate that he is full code. There is no detailed advanced directive. 04/02: Patient has intermittent movement of head back and forth which does not appear to be purposeful. Cold calorics were tested yesterday with neurologist and patient had no response. He continues to have no cough, gag, or corneal reflexes. He also continues to have persistent hypotension requiring multiple pressors. Family meeting scheduled for today with palliative care around 11 AM. 04/03: Patient's snf does not have POA paperwork naming his friend Xu as POA or medical decision maker. He mentioned to Anh from palliative care that the patient has an estranged daughter. Palliative care team is working on contacting her as she is next of kin. Otherwise, the patient's status has not changed; he continues to require multiple pressors to maintain a MAP of 65 mmHg and has had no improvement in neurologic status. 04/04: Remains comatose, orally intubated on mechanical ventilation. Objective Vital Signs / I&O: Vital Signs 04/03/18 13:00 04/03/18 14:00 04/03/18 15:00 Temperature Pulse Rate 104 H 103 H 98 H Respiratory Rate 20 20 20 Blood Pressure Pulse Oximetry 100 100 100 04/03/18 16:00 04/03/18 16:48 04/03/18 16:50 Temperature Pulse Rate 132 H 126 H Respiratory Rate 20 20 20 Blood Pressure Pulse Oximetry 100 100 04/03/18 17:06 04/03/18 18:00 04/03/18 18:53 Temperature Pulse Rate 109 H 107 H Respiratory Rate 20 20 Blood Pressure 87/58 L 149/79 H 130/78 Pulse Oximetry 100 100 04/03/18 19:00 04/03/18 19:34 04/03/18 19:53 Temperature Pulse Rate 121 H 109 H Respiratory Rate 20 20 20 Blood Pressure 201/126 H Pulse Oximetry 100 100 100 04/03/18 20:00 04/03/18 20:02 04/03/18 20:25 Temperature Pulse Rate 116 H 119 H 112 H Respiratory Rate 20 20 20 Blood Pressure 146/76 H Pulse Oximetry 100 100 04/03/18 20:53 04/03/18 21:00 04/03/18 21:15 Temperature Pulse Rate 109 H 107 H 105 H Respiratory Rate 20 21 20 Blood Pressure 127/78 97/59 L Pulse Oximetry 100 100 100 04/03/18 21:44 04/03/18 22:00 04/03/18 22:15 Temperature Pulse Rate 102 H 101 H 97 H Respiratory Rate 26 H 20 20 Blood Pressure 124/83 115/65 118/70 Pulse Oximetry 100 98 100 04/03/18 22:30 04/03/18 22:45 04/03/18 23:00 Temperature Pulse Rate 97 H 98 H 97 H Respiratory Rate 20 20 20 Blood Pressure 131/82 126/82 126/81 Pulse Oximetry 100 100 100 04/03/18 23:15 04/03/18 23:30 04/03/18 23:42 Temperature Pulse Rate 98 H 99 H Respiratory Rate 20 20 20 Blood Pressure 125/82 128/85 Pulse Oximetry 100 100 100 04/03/18 23:45 04/04/18 00:00 04/04/18 00:15 Temperature Pulse Rate 100 H 102 H 103 H Respiratory Rate 20 20 20 Blood Pressure 124/83 128/87 133/95 H Pulse Oximetry 100 100 100 04/04/18 00:30 04/04/18 00:45 04/04/18 01:00 Temperature Pulse Rate 105 H 106 H 106 H Respiratory Rate 20 20 20 Blood Pressure 137/99 H 142/98 H 145/96 H Pulse Oximetry 100 100 100 04/04/18 01:15 04/04/18 01:30 04/04/18 01:45 Temperature Pulse Rate 107 H 107 H 108 H Respiratory Rate 20 20 20 Blood Pressure 151/94 H 139/90 139/95 H Pulse Oximetry 100 100 100 04/04/18 02:00 04/04/18 02:15 04/04/18 02:30 Temperature Pulse Rate 107 H 107 H 107 H Respiratory Rate 20 20 20 Blood Pressure 138/95 H 150/95 H 114/73 Pulse Oximetry 100 100 100 04/04/18 02:45 04/04/18 03:00 04/04/18 03:15 Temperature Pulse Rate 102 H 99 H 100 H Respiratory Rate 0 L 0 L 0 L Blood Pressure 110/78 114/82 117/81 Pulse Oximetry 99 99 99 04/04/18 03:30 04/04/18 03:38 04/04/18 03:40 Temperature Pulse Rate 101 H 101 H Respiratory Rate 0 L 20 20 Blood Pressure 118/81 Pulse Oximetry 99 99 04/04/18 03:45 04/04/18 04:00 04/04/18 04:15 Temperature 97.7 F Pulse Rate 101 H 102 H 102 H Respiratory Rate 0 L 0 L 0 L Blood Pressure 121/78 128/79 125/82 Pulse Oximetry 99 99 99 04/04/18 04:30 04/04/18 04:45 04/04/18 05:00 Temperature Pulse Rate 102 H 102 H 102 H Respiratory Rate 0 L 20 20 Blood Pressure 132/84 131/72 119/72 Pulse Oximetry 99 99 99 04/04/18 05:15 04/04/18 05:30 04/04/18 05:45 Temperature Pulse Rate 102 H 102 H 103 H Respiratory Rate 20 20 20 Blood Pressure 129/80 119/72 122/75 Pulse Oximetry 99 99 99 04/04/18 06:00 04/04/18 06:15 04/04/18 06:30 Temperature Pulse Rate 103 H 103 H 103 H Respiratory Rate 20 20 20 Blood Pressure 118/77 116/77 125/80 Pulse Oximetry 99 99 99 04/04/18 06:45 04/04/18 07:00 04/04/18 07:15 Temperature Pulse Rate 103 H 103 H 103 H Respiratory Rate 20 20 20 Blood Pressure 126/76 126/75 122/76 Pulse Oximetry 99 99 99 04/04/18 07:30 04/04/18 07:45 04/04/18 07:56 Temperature Pulse Rate 103 H 103 H 103 H Respiratory Rate 20 20 20 Blood Pressure 124/76 129/73 Pulse Oximetry 99 99 99 04/04/18 08:00 04/04/18 08:15 04/04/18 08:30 Temperature 98.3 F Pulse Rate 103 H 104 H 104 H Respiratory Rate 0 L 0 L 17 Blood Pressure 132/74 117/71 138/89 Pulse Oximetry 100 99 99 04/04/18 08:45 04/04/18 09:00 04/04/18 09:15 Temperature Pulse Rate 104 H 103 H 103 H Respiratory Rate 0 L 0 L 0 L Blood Pressure 126/73 122/79 121/80 Pulse Oximetry 99 99 99 04/04/18 09:30 04/04/18 09:45 04/04/18 11:25 Temperature Pulse Rate 103 H 104 H Respiratory Rate 0 L 0 L 20 Blood Pressure 120/82 124/83 Pulse Oximetry 99 99 99 Intake & Output 04/03/18 04/04/18 04/04/18 18:59 06:59 18:59 Intake Total 1700 / 1700 3243 / 3243 1194 / 1194 Output Total 975 / 975 3950 / 3950 Balance 725 / 725 -707 / -707 1194 / 1194 Weight 75.1 kg Intake: IV 1700 / 1700 3243 / 3243 1194 / 1194 Cordarone Inj 450 MG In D5W Inj 393 / 393 107 / 107 241 ML @ 1 MG/MIN 33.33 mls/hr IV.CONT TITRATE PRN Rx#: [id number] DOPamine 800 MG/500 ML Premix 616 / 616 800 mg In 500 ml @ 3 MCG/KG/MIN 7.819 mls/hr IV.CONT TITRATE PRN Rx#:[id number] D5W Inj 1,000 ML @ 100 mls/hr 1000 / 1000 1000 / 1000 IV.CONT .Q10H LAURA Rx#:[id number] D5W/1/2 NS Inj 1,000 ML @ 100 950 / 950 mls/hr IV.CONT .Q10H LAURA Rx#: [id number] EPINEPHrine (1:1000) Inj 4 MG 500 / 500 163 / 163 87 / 87 In D5W Inj 246 ML @ 3 MCG/MIN 11.25 mls/hr IV.CONT TITRATE PRN Rx#:[id number] Levophed Inj 16 MG In NS Inj 250 / 250 250 / 250 234 ML @ 2 MCG/MIN 1.87 mls/hr IV.CONT TITRATE PRN Rx#: [id number] Neosynephrine Inj 160 MG In NS 728 / 728 Inj 484 ML @ 40 MCG/MIN 7.5 mls /hr IV.CONT TITRATE PRN Rx#: [id number] fentaNYL 10 mcg/mL Premix Drip 93 / 93 2,500 mcg In 250 ml @ 50 MCG/HR 5 mls/hr IV.SIG TITRATE PRN Rx #:[id number] Oral 0 / 0 Output: Stool 0 / 0 Urine Amount (Catheter) 975 / 975 3950 / 3950 1545 3950 / 3950 Indwelling Temp Sensing 975 / 975 Catheter Gastric Drainage 0 / 0 Oral Orogastric Tube 0 / 0 Other: # Bowel Movements 0 Result Diagrams: 04/04/18 05:00 04/04/18 05:00 Objective Remarks: GEN: Ill-appearing elderly male, intubated and sedated HEENT: No cough, gag, or corneal reflexes; occasional non-purposeful side-to- side movement of head NECK: Trachea midline CARDIO: Tachy, regular PULM: Mechanical breath sounds bilaterally ABD/GI: Soft, non-distended EXT/MSK: 1+ peripheral edema SKIN: No rashes or lesions NEURO: GCS 3T (E1VTM1), does not withdraw extremities to noxious stimuli, no cough/ gag/ corneal reflexes, pupils fixed and dilated PSYCH: Unable to assess Assessment and Plan - Problem List (1) Intracerebral hemorrhage Code(s): I61.9 - Nontraumatic intracerebral hemorrhage, unspecified Status: Acute (2) Respiratory failure Code(s): J96.90 - Respiratory failure, unspecified, unspecified whether with hypoxia or hypercapnia Status: Acute (3) Ischemic hepatitis Code(s): K75.9 - Inflammatory liver disease, unspecified Status: Acute (4) LARS (acute kidney injury) Code(s): N17.9 - Acute kidney failure, unspecified Status: Acute (5) Coagulopathy Code(s): D68.9 - Coagulation defect, unspecified Status: Acute (6) Hypernatremia Code(s): E87.0 - Hyperosmolality and hypernatremia Status: Acute (7) Hypokalemia Code(s): E87.6 - Hypokalemia Status: Acute (8) Hypophosphatemia Code(s): E83.39 - Other disorders of phosphorus metabolism Status: Acute (9) Cardiac arrest with ventricular fibrillation Code(s): I46.9 - Cardiac arrest, cause unspecified; I49.01 - Ventricular fibrillation Status: Inactive (10) Anoxia of brain Code(s): G93.1 - Anoxic brain damage, not elsewhere classified Status: Acute - Assessment and Plan Plan: NEURO: Cerebellar and intraventricular hemorrhage Obstructive hydrocephalus Cerebral anoxia History of hemorrhagic stroke Depression Nonambulatory at baseline Nonsurvivable intracerebral hemorrhage resulting in cardiac arrest The patient has no brain stem reflexes but occasionally has non-purposeful movements of his head Neurology following EEG on 04/01 showed "extremely abnormal study with a severely attenuated and for the most part silent tracing consistent with severe encephalopathy" RESP: Acute respiratory failure Pulmonary edema PRVC, PEEP 10. Ventilator Bundle. Albuterol every 2 hours as needed CV: V. fib cardiac arrest Essential hypertension at baseline Hyperlipidemia Currently on norepinephrine gtt @ 15, epinephrine gtt @ 10, dopamine @ 5, and phenylephrine gtt @ 140 for goal MAP > 65 mmHg Remains on amiodarone gtt, currently in NSR 2D echo showed severe systolic dysfunction with EF of 20-25%, global LV dysfunction, akinetic mid-anterior septal wall, mild TR, PAP 38.5 mmHg GI: Ischemic hepatitis GERD OGT to LIWS. Protonix 40 mg IV qday Bowel regimen Viral hepatitis panel non-reactive FEN/RENAL: Acute anion gap metabolic acidemia secondary to lactic acidemia Acute kidney injury Hypernatremia Hypokalemia Hypophosphatemia Worsening hypernatremia and hyperchloremia; will change D5 1/2 NS to D5W @ 100 mL/hr No longer trending lactic acid as patient is already on 4 pressors/ ionotropes and would not be a candidate for any additional cardiac support (i.e., Impella) BUN/ creat trending down ID: Monitor for signs and symptoms of infection HEME: Coagulopathy No clinical indication to correct coagulopathy as patient has nonsurvivable ICH and otherwise no clinical evidence of bleeding. ENDO: Acute hyperglycemia Sliding scale insulin PROPH: SCDs for DVT prophylaxis. Protonix 40 mg IV daily for stress ulcer prophylaxis and history of GERD ACCESS: Right radial art line placed 04/01. Left IJ central venous line placed OVERALL: This patient remains critically ill and unstable. He requires continued ICU level of care. He has no realistic expectation for a functional neurologic recovery. Palliative care is working on contacting the patient's next of kin to discuss goals of care.
--- NOTE | 2018-04-04 13:20 | P.PNPAL ---
Reason for Visit Reason for visit: a. To assist with evaluation and management of symptoms including: encephalopathy, dyspnea b. To assist medical decision maker(s) with: better understanding of current medical conditions; weighing benefits/burdens of medical treatment options; making medical treatment decisions. Subjective Subjective/Interval History: Mr. Maradiaga is a 68 y/o male who presented on 04/01 after suffering brain bleed and subsequent cardiac arrest. Currently intubated, on pressors. Has no evidence intact brainstem reflexes, EEG severely abnormal and nearly flat. Patient with nonsurvivable intracranial hemorrhage currently on multiple vasopressors, not a candidate for further support. Grave prognosis. Palliative care follow-up for further clarifications of goals of care given the above. Patient seen in ICU. Remains endotracheally intubated on mechanical ventilation. Currently on epinephrine, norepinephrine, dopamine and phenylephrine drip in addition to amiodarone drip. On fentanyl 50 mcg/h drip. Patient comatose, unresponsive to verbal or tactile stimuli. No corneal reflexes, no cough reflex. No withdrawal to pain. Neurology Dr. Rios following. Patient afebrile, slightly tachycardic with heart rate in the low 110s. Stable hemodynamically. Currently 40% FiO2. Case discussed with Dr. Nolan. Patient's biological daughter Emily identified, she resides in [place]. Palliative care has been in contact with daughter, daughter has requested letter indicating patient's critical condition and poor prognosis in order for her to obtain [place] visa to visit patient. Daughter deferring medical decision making until she sees patient. Goals of treatment remain aggressive until daughter arrives at bedside for clarification of goals of care. Concerns of patient's worsening clinical condition, currently on multiple vasopressors and not a candidate for further support. Patient may progress to brain . Telephone call to patient 's daughter Emily in [place], no answer. Spoke to patient's only local friend Xu Lynch. He reports that he spoke to daughter Emily yesterday, daughter received [place] letter and she is to meet with a business director today in order to request [place] visa. Palliative care will continue to follow-up for further assistance. Confirmed with Tori accounting representative from patient's long-term facility in [facility] , NO advance directives/POA forms in patient' s chart. Patient was making his own decisions prior to this acute event. Advance Directives Living Will: Never completed Health Care Surrogate: Never completed Durable Power of Licensed Embalmer: Never completed Objective Vital Signs: Vital Signs 04/03/18 14:00 04/03/18 15:00 04/03/18 16:00 Temperature Pulse Rate 103 H 98 H 132 H Respiratory Rate 20 20 20 Blood Pressure Pulse Oximetry 100 100 100 04/03/18 16:48 04/03/18 16:50 04/03/18 17:06 Temperature Pulse Rate 126 H Respiratory Rate 20 20 Blood Pressure 87/58 L Pulse Oximetry 100 04/03/18 18:00 04/03/18 18:53 04/03/18 19:00 Temperature Pulse Rate 109 H 107 H 121 H Respiratory Rate 20 20 20 Blood Pressure 149/79 H 130/78 Pulse Oximetry 100 100 100 04/03/18 19:34 04/03/18 19:53 04/03/18 20:00 Temperature Pulse Rate 109 H 116 H Respiratory Rate 20 20 20 Blood Pressure 201/126 H Pulse Oximetry 100 100 100 04/03/18 20:02 04/03/18 20:25 04/03/18 20:53 Temperature Pulse Rate 119 H 112 H 109 H Respiratory Rate 20 20 20 Blood Pressure 146/76 H 127/78 Pulse Oximetry 100 100 04/03/18 21:00 04/03/18 21:15 04/03/18 21:44 Temperature Pulse Rate 107 H 105 H 102 H Respiratory Rate 21 20 26 H Blood Pressure 97/59 L 124/83 Pulse Oximetry 100 100 100 04/03/18 22:00 04/03/18 22:15 04/03/18 22:30 Temperature Pulse Rate 101 H 97 H 97 H Respiratory Rate 20 20 20 Blood Pressure 115/65 118/70 131/82 Pulse Oximetry 98 100 100 04/03/18 22:45 04/03/18 23:00 04/03/18 23:15 Temperature Pulse Rate 98 H 97 H 98 H Respiratory Rate 20 20 20 Blood Pressure 126/82 126/81 125/82 Pulse Oximetry 100 100 100 04/03/18 23:30 04/03/18 23:42 04/03/18 23:45 Temperature Pulse Rate 99 H 100 H Respiratory Rate 20 20 20 Blood Pressure 128/85 124/83 Pulse Oximetry 100 100 100 04/04/18 00:00 04/04/18 00:15 04/04/18 00:30 Temperature Pulse Rate 102 H 103 H 105 H Respiratory Rate 20 20 20 Blood Pressure 128/87 133/95 H 137/99 H Pulse Oximetry 100 100 100 04/04/18 00:45 04/04/18 01:00 04/04/18 01:15 Temperature Pulse Rate 106 H 106 H 107 H Respiratory Rate 20 20 20 Blood Pressure 142/98 H 145/96 H 151/94 H Pulse Oximetry 100 100 100 04/04/18 01:30 04/04/18 01:45 04/04/18 02:00 Temperature Pulse Rate 107 H 108 H 107 H Respiratory Rate 20 20 20 Blood Pressure 139/90 139/95 H 138/95 H Pulse Oximetry 100 100 100 04/04/18 02:15 04/04/18 02:30 04/04/18 02:45 Temperature Pulse Rate 107 H 107 H 102 H Respiratory Rate 20 20 0 L Blood Pressure 150/95 H 114/73 110/78 Pulse Oximetry 100 100 99 04/04/18 03:00 04/04/18 03:15 04/04/18 03:30 Temperature Pulse Rate 99 H 100 H 101 H Respiratory Rate 0 L 0 L 0 L Blood Pressure 114/82 117/81 118/81 Pulse Oximetry 99 99 99 04/04/18 03:38 04/04/18 03:40 04/04/18 03:45 Temperature Pulse Rate 101 H 101 H Respiratory Rate 20 20 0 L Blood Pressure 121/78 Pulse Oximetry 99 99 04/04/18 04:00 04/04/18 04:15 04/04/18 04:30 Temperature 97.7 F Pulse Rate 102 H 102 H 102 H Respiratory Rate 0 L 0 L 0 L Blood Pressure 128/79 125/82 132/84 Pulse Oximetry 99 99 99 04/04/18 04:45 04/04/18 05:00 04/04/18 05:15 Temperature Pulse Rate 102 H 102 H 102 H Respiratory Rate 20 20 20 Blood Pressure 131/72 119/72 129/80 Pulse Oximetry 99 99 99 04/04/18 05:30 04/04/18 05:45 04/04/18 06:00 Temperature Pulse Rate 102 H 103 H 103 H Respiratory Rate 20 20 20 Blood Pressure 119/72 122/75 118/77 Pulse Oximetry 99 99 99 02/21/19 06:15 04/04/18 06:30 04/04/18 06:45 Temperature Pulse Rate 103 H 103 H 103 H Respiratory Rate 20 20 20 Blood Pressure 116/77 125/80 126/76 Pulse Oximetry 99 99 99 04/04/18 07:00 04/04/18 07:15 04/04/18 07:30 Temperature Pulse Rate 103 H 103 H 103 H Respiratory Rate 20 20 20 Blood Pressure 126/75 122/76 124/76 Pulse Oximetry 99 99 99 04/04/18 07:45 04/04/18 07:56 04/04/18 08:00 Temperature 98.3 F Pulse Rate 103 H 103 H 103 H Respiratory Rate 20 20 0 L Blood Pressure 129/73 132/74 Pulse Oximetry 99 99 100 04/04/18 08:15 04/04/18 08:30 04/04/18 08:45 Temperature Pulse Rate 104 H 104 H 104 H Respiratory Rate 0 L 17 0 L Blood Pressure 117/71 138/89 126/73 Pulse Oximetry 99 99 99 04/04/18 09:00 04/04/18 09:15 04/04/18 09:30 Temperature Pulse Rate 103 H 103 H 103 H Respiratory Rate 0 L 0 L 0 L Blood Pressure 122/79 121/80 120/82 Pulse Oximetry 99 99 99 04/04/18 09:45 04/04/18 11:25 Temperature Pulse Rate 104 H Respiratory Rate 0 L 20 Blood Pressure 124/83 Pulse Oximetry 99 99 Intake & Output 04/03/18 04/04/18 04/04/18 18:59 06:59 18:59 Intake Total 1700 / 1700 3243 / 3243 1194 / 1194 Output Total 975 / 975 3950 / 3950 Balance 725 / 725 -707 / -707 1194 / 1194 Weight 75.1 kg Intake: IV 1700 / 1700 3243 / 3243 1194 / 1194 Cordarone Inj 450 MG In D5W Inj 393 / 393 107 / 107 241 ML @ 1 MG/MIN 33.33 mls/hr IV.CONT TITRATE PRN Rx#: [id number] DOPamine 800 MG/500 ML Premix 616 / 616 800 mg In 500 ml @ 3 MCG/KG/MIN 7.819 mls/hr IV.CONT TITRATE PRN Rx#:[id number] D5W Inj 1,000 ML @ 100 mls/hr 1000 / 1000 1000 / 1000 IV.CONT .Q10H LAURA Rx#:[id number] D5W/1/2 NS Inj 1,000 ML @ 100 950 / 950 mls/hr IV.CONT .Q10H LAURA Rx#: [id number] EPINEPHrine (1:1000) Inj 4 MG 500 / 500 163 / 163 87 / 87 In D5W Inj 246 ML @ 3 MCG/MIN 11.25 mls/hr IV.CONT TITRATE PRN Rx#:[id number] Levophed Inj 16 MG In NS Inj 250 / 250 250 / 250 234 ML @ 2 MCG/MIN 1.87 mls/hr IV.CONT TITRATE PRN Rx#: [id number] Neosynephrine Inj 160 MG In NS 728 / 728 Inj 484 ML @ 40 MCG/MIN 7.5 mls /hr IV.CONT TITRATE PRN Rx#: [id number] fentaNYL 10 mcg/mL Premix Drip 93 / 93 2,500 mcg In 250 ml @ 50 MCG/HR 5 mls/hr IV.SIG TITRATE PRN Rx #:[id number] Oral 0 / 0 Output: Stool 0 / 0 Urine Amount (Catheter) 975 / 975 3950 / 3950 1545 3950 / 3950 Indwelling Temp Sensing 975 / 975 Catheter Gastric Drainage 0 / 0 Oral Orogastric Tube 0 / 0 Other: # Bowel Movements 0 Physical Exam: CONSTITUTIONAL/GENERAL: This is an adequately nourished patient, in no apparent distress. Endotracheally intubated on mechanical ventilation. TUBES/LINES/DRAINS: OETT, OGT, cuevas, central line, bilateral soft wrist restraints, SCDs. SKIN: No jaundice, rashes, or lesions. Ecchymoses on upper extremities. No wounds seen anteriorly. Skin temperature appropriate. Not diaphoretic. Scattered abrasions to right leg. HEAD: Atraumatic. Normocephalic. EYES: pupils fixed and dilated. +scleredema. No scleral icterus. Fundi not examined. ENT: unable to assess hearing. Nose without bleeding or purulent drainage. Throat exam inhibited by ETT. Moist oral mucosa. NECK: Trachea midline. Supple. CARDIOVASCULAR: Tachycardic with heart rate in the 110s. RRR without murmurs, gallops, or rubs. No JVD. Peripheral pulses symmetric. RESPIRATORY/CHEST: Symmetric, unlabored respirations. Clear to auscultation. Breath sounds equal bilaterally. No wheezes, rales, or rhonchi. GASTROINTESTINAL: Abdomen soft, non-tender, nondistended. Bowel sounds present. GENITOURINARY: Without palpable bladder distension. Cuevas catheter in place. MUSCULOSKELETAL: Extremities without clubbing, cyanosis.+ bue edema. No joint tenderness or effusion noted. No calf tenderness. No mottling or clubbing. NEUROLOGICAL: Comatose. Does not withdraw to pain. Negative corneal reflexes. PSYCHIATRIC:unable to assess given clinical condition. Diagnostic Tests Laboratory: Laboratory Results - last 72 hr 04/01/18 04/01/18 04/01/18 08:30 13:30 14:10 WBC RBC Hgb Hct MCV MCH MCHC RDW Plt Count MPV Neut % (Auto) Lymph % (Auto) [place] % (Auto) Eos % (Auto) Baso % (Auto) Neut # (Auto) Lymph # (Auto) [place] # (Auto) Eos # (Auto) Baso # (Auto) WBC Differential Differential Comment PT INR APTT Puncture Site Patient Temperature O2 Saturation ABG pH ABG pCO2 ABG pO2 ABG HCO3 ABG O2 Content ABG Base Excess ABG Methemoglobin Hemoglobin Carboxyhemoglobin O2 Delivery Device Vent Setting Inspired O2 Critical Value Sodium Potassium Chloride Carbon Dioxide Anion Gap BUN Creatinine Estimated GFR POC Glucose 270 H 240 H Random Glucose Lactic Acid Calcium Calcium Adj for Albumin Phosphorus Magnesium Total Bilirubin AST ALT Alkaline Phosphatase Total Protein Albumin Nasal Screen MRSA (PCR) Not detected 04/01/18 04/01/18 04/01/18 14:59 15:25 15:57 WBC RBC Hgb Hct MCV MCH MCHC RDW Plt Count MPV Neut % (Auto) Lymph % (Auto) [place] % (Auto) Eos % (Auto) Baso % (Auto) Neut # (Auto) Lymph # (Auto) [place] # (Auto) Eos # (Auto) Baso # (Auto) WBC Differential Differential Comment PT INR APTT Puncture Site Patient Temperature O2 Saturation ABG pH ABG pCO2 ABG pO2 ABG HCO3 ABG O2 Content ABG Base Excess ABG Methemoglobin Hemoglobin Carboxyhemoglobin O2 Delivery Device Vent Setting Inspired O2 Critical Value Sodium Potassium 2.5 L* Chloride Carbon Dioxide Anion Gap BUN Creatinine Estimated GFR POC Glucose 218 H 184 H Random Glucose Lactic Acid Calcium Calcium Adj for Albumin Phosphorus 0.7 L D Magnesium Total Bilirubin AST ALT Alkaline Phosphatase Total Protein Albumin Nasal Screen MRSA (PCR) 04/01/18 04/01/18 04/01/18 17:00 17:53 19:50 WBC RBC Hgb Hct MCV MCH MCHC RDW Plt Count MPV Neut % (Auto) Lymph % (Auto) [place] % (Auto) Eos % (Auto) Baso % (Auto) Neut # (Auto) Lymph # (Auto) [place] # (Auto) Eos # (Auto) Baso # (Auto) WBC Differential Differential Comment PT INR APTT Puncture Site Patient Temperature O2 Saturation ABG pH ABG pCO2 ABG pO2 ABG HCO3 ABG O2 Content ABG Base Excess ABG Methemoglobin Hemoglobin Carboxyhemoglobin O2 Delivery Device Vent Setting Inspired O2 Critical Value Sodium Potassium Chloride Carbon Dioxide Anion Gap BUN Creatinine Estimated GFR POC Glucose 167 H 148 H 91 Random Glucose Lactic Acid Calcium Calcium Adj for Albumin Phosphorus Magnesium Total Bilirubin AST ALT Alkaline Phosphatase Total Protein Albumin Nasal Screen MRSA (PCR) 04/01/18 04/01/18 04/01/18 20:26 20:36 22:18 WBC RBC Hgb Hct MCV MCH MCHC RDW Plt Count MPV Neut % (Auto) Lymph % (Auto) [place] % (Auto) Eos % (Auto) Baso % (Auto) Neut # (Auto) Lymph # (Auto) [place] # (Auto) Eos # (Auto) Baso # (Auto) WBC Differential Differential Comment PT INR APTT Puncture Site Art line Patient Temperature 98.6 O2 Saturation 98 ABG pH 7.37 L ABG pCO2 34 L ABG pO2 141 H ABG HCO3 19 L ABG O2 Content 16.5 ABG Base Excess -5.5 L ABG Methemoglobin 0.5 Hemoglobin 11.8 L Carboxyhemoglobin 0.8 O2 Delivery Device Ventilator Vent Setting Prvc/ac/20/500/ Inspired O2 50 Critical Value No Sodium Potassium Chloride Carbon Dioxide Anion Gap BUN Creatinine Estimated GFR POC Glucose 89 80 Random Glucose Lactic Acid Calcium Calcium Adj for Albumin Phosphorus Magnesium Total Bilirubin AST ALT Alkaline Phosphatase Total Protein Albumin Nasal Screen MRSA (PCR) 04/02/18 04/02/18 04/02/18 00:58 02:31 04:05 WBC 12.6 H RBC 4.53 Hgb 13.3 Hct 40.2 MCV 88.8 MCH 29.4 MCHC 33.2 RDW 15.5 Plt Count 104 L D MPV 8.2 Neut % (Auto) 66.2 Lymph % (Auto) 27.9 [place] % (Auto) 3.8 Eos % (Auto) 1.8 Baso % (Auto) 0.3 Neut # (Auto) 8.3 H Lymph # (Auto) 3.5 [place] # (Auto) 0.5 Eos # (Auto) 0.2 Baso # (Auto) 0.0 WBC Differential . Differential Comment Auto diff final PT INR APTT Puncture Site Patient Temperature O2 Saturation ABG pH ABG pCO2 ABG pO2 ABG HCO3 ABG O2 Content ABG Base Excess ABG Methemoglobin Hemoglobin Carboxyhemoglobin O2 Delivery Device Vent Setting Inspired O2 Critical Value Sodium Potassium Chloride Carbon Dioxide Anion Gap BUN Creatinine Estimated GFR POC Glucose 73 109 Random Glucose Lactic Acid Calcium Calcium Adj for Albumin Phosphorus Magnesium Total Bilirubin AST ALT Alkaline Phosphatase Total Protein Albumin Nasal Screen MRSA (PCR) 04/02/18 04/02/18 04/02/18 04:05 04:05 04:20 WBC RBC Hgb Hct MCV MCH MCHC RDW Plt Count MPV Neut % (Auto) Lymph % (Auto) [place] % (Auto) Eos % (Auto) Baso % (Auto) Neut # (Auto) Lymph # (Auto) [place] # (Auto) Eos # (Auto) Baso # (Auto) WBC Differential Differential Comment PT 20.6 H INR 2.0 APTT 45.6 H D Puncture Site Patient Temperature O2 Saturation ABG pH ABG pCO2 ABG pO2 ABG HCO3 ABG O2 Content ABG Base Excess ABG Methemoglobin Hemoglobin Carboxyhemoglobin O2 Delivery Device Vent Setting Inspired O2 Critical Value Sodium 153 H Potassium 3.9 D Chloride 122 H D Carbon Dioxide 19.3 L Anion Gap 12 BUN 18 Creatinine 1.90 H Estimated GFR 35 L POC Glucose 102 Random Glucose 108 H D Lactic Acid Calcium 6.7 L* Calcium Adj for Albumin 8.2 L Phosphorus 3.9 D Magnesium 0.9 L D Total Bilirubin 0.7 AST 399 H ALT 639 H Alkaline Phosphatase 63 Total Protein 4.8 L D Albumin 2.1 L D Nasal Screen MRSA (PCR) 04/02/18 04/02/18 04/02/18 06:26 09:00 11:42 WBC RBC Hgb Hct MCV MCH MCHC RDW Plt Count MPV Neut % (Auto) Lymph % (Auto) [place] % (Auto) Eos % (Auto) Baso % (Auto) Neut # (Auto) Lymph # (Auto) [place] # (Auto) Eos # (Auto) Baso # (Auto) WBC Differential Differential Comment PT INR APTT Puncture Site Patient Temperature O2 Saturation ABG pH ABG pCO2 ABG pO2 ABG HCO3 ABG O2 Content ABG Base Excess ABG Methemoglobin Hemoglobin Carboxyhemoglobin O2 Delivery Device Vent Setting Inspired O2 Critical Value Sodium Potassium Chloride Carbon Dioxide Anion Gap BUN Creatinine Estimated GFR POC Glucose 92 164 H Random Glucose Lactic Acid 5.5 H* Calcium Calcium Adj for Albumin Phosphorus Magnesium Total Bilirubin AST ALT Alkaline Phosphatase Total Protein Albumin Nasal Screen MRSA (PCR) 04/02/18 04/02/18 04/03/18 12:00 18:58 04:11 WBC RBC Hgb Hct MCV MCH MCHC RDW Plt Count MPV Neut % (Auto) Lymph % (Auto) [place] % (Auto) Eos % (Auto) Baso % (Auto) Neut # (Auto) Lymph # (Auto) [place] # (Auto) Eos # (Auto) Baso # (Auto) WBC Differential Differential Comment PT INR APTT Puncture Site Patient Temperature O2 Saturation ABG pH ABG pCO2 ABG pO2 ABG HCO3 ABG O2 Content ABG Base Excess ABG Methemoglobin Hemoglobin Carboxyhemoglobin O2 Delivery Device Vent Setting Inspired O2 Critical Value Sodium 153 H Potassium 4.0 Chloride 122 H Carbon Dioxide 20.6 L Anion Gap 10 BUN 17 Creatinine 1.63 H Estimated GFR 42 L POC Glucose 161 H Random Glucose 199 H Lactic Acid 5.4 H* Calcium 7.2 L* Calcium Adj for Albumin 8.8 Phosphorus Magnesium 1.9 D Total Bilirubin AST ALT Alkaline Phosphatase Total Protein Albumin 2.0 L Nasal Screen MRSA (PCR) 04/03/18 04/03/18 04/03/18 07:54 10:45 10:45 WBC 9.0 RBC 4.29 L Hgb 12.6 L Hct 38.1 L MCV 88.9 MCH 29.4 MCHC 33.0 RDW 16.0 Plt Count 70 L D MPV 8.6 Neut % (Auto) Lymph % (Auto) [place] % (Auto) Eos % (Auto) Baso % (Auto) Neut # (Auto) Lymph # (Auto) [place] # (Auto) Eos # (Auto) Baso # (Auto) WBC Differential Differential Comment PT INR APTT Puncture Site Patient Temperature O2 Saturation ABG pH ABG pCO2 ABG pO2 ABG HCO3 ABG O2 Content ABG Base Excess ABG Methemoglobin Hemoglobin Carboxyhemoglobin O2 Delivery Device Vent Setting Inspired O2 Critical Value Sodium 160 H* Potassium 4.4 Chloride 128 H Carbon Dioxide 23.5 Anion Gap 9 BUN 13 Creatinine 1.44 H Estimated GFR 48 L POC Glucose 187 H Random Glucose 212 H Lactic Acid Calcium 7.2 L* Calcium Adj for Albumin 8.9 Phosphorus Magnesium Total Bilirubin AST ALT Alkaline Phosphatase Total Protein Albumin 1.9 L Nasal Screen MRSA (PCR) 04/03/18 04/04/18 04/04/18 13:08 05:00 05:00 WBC 7.6 RBC 4.36 L Hgb 12.6 L Hct 38.3 L MCV 87.8 MCH 28.9 MCHC 33.0 RDW 16.4 Plt Count 57 L MPV 8.6 Neut % (Auto) Lymph % (Auto) [place] % (Auto) Eos % (Auto) Baso % (Auto) Neut # (Auto) Lymph # (Auto) [place] # (Auto) Eos # (Auto) Baso # (Auto) WBC Differential Differential Comment PT INR APTT Puncture Site Patient Temperature O2 Saturation ABG pH ABG pCO2 ABG pO2 ABG HCO3 ABG O2 Content ABG Base Excess ABG Methemoglobin Hemoglobin Carboxyhemoglobin O2 Delivery Device Vent Setting Inspired O2 Critical Value Sodium 167 H* Potassium 4.2 Chloride 138 H D Carbon Dioxide 22.4 Anion Gap 7 BUN 13 Creatinine 1.29 Estimated GFR 55 L POC Glucose 176 H Random Glucose 208 H Lactic Acid Calcium 8.0 L D Calcium Adj for Albumin Phosphorus Magnesium Total Bilirubin AST ALT Alkaline Phosphatase Total Protein Albumin Nasal Screen MRSA (PCR) Result Diagrams: 04/04/18 05:00 04/04/18 05:00 Microbiology: Microbiology 04/01/18 06:18 Aerobic Blood Culture - Preliminary Blood - Peripheral No growth in 3 days Anaerobic Blood Culture - Preliminary No growth in 3 days 04/01/18 06:00 Aerobic Blood Culture - Preliminary Blood - Peripheral No growth in 3 days Anaerobic Blood Culture - Preliminary No growth in 3 days 04/01/18 06:16 Urine Culture - Final Catheterized Urine No growth in 48 hours Procedures: 04/01 art line placed 04/01 central line placed 04/01 intubated Assessment and Plan - Disease Oriented Problem List (1) Anoxia of brain (2) Respiratory failure (3) Intracerebral hemorrhage (4) Congestive heart failure Comment: per EVAC - Symptom Scale (1) Dyspnea 0-10 Scale: Unable to quantify (2) Encephalopathy 0-10 Scale: Unable to quantify Pertinent Non-Medical Issues: Psychosocial: Pt was living in a correction. Has 1 biological daughter, Emily who lives in [facility]. Has 1 friend, Xu who is local. Pt originally from [facility]. Spiritual: pastoral care available. Legal: Pt is not capacitated to make decisions and it is unlikely he will regain capacity. Per [place] statutes proxy medical decision falls to his daughter Shae in [facility] Ethical issues impacting care: No ethical issues identified. Important Contacts: daughter/HCP - Emily Licona (international number/ [facility]) [phone] Xu Syed [phone] friend Prognosis: 67 y/o male who presented 04/01 after suffering brain bleed and subsequent cardiac arrest. Currently intubated, on pressors. Has no evidence intact brainstem reflexes, EEG severely abnormal and nearly flat. If compassionately removed from life support, expect he would imminently. Grave prognosis. Code Status: Full Code Plan: - LEGAL DECISION MAKER - Pt is not capacitated to make decisions given comatose state, NOT anticipated to regain medical decision-making capacity. No advance directives/POA forms reported as completed as per patient's long-term facility [facility] and patient's friend uX. Patient is single, 1 biological daughter. As per [place] statue, healthcare proxy decision making falls to patient's only daughter Emily Licona who resides in [facility]. Daughter wishing to participating medical decision making. - CODE STATUS- FULL code. - GOALS -daughter acting as healthcare proxy decision making is deferring goals of care decisions until she is able to personally see patient. Daughter resides in [facility], palliative care has facilitated letter as per daughter's request indicating that patient is critically ill in order for daughter to obtain [place] visa. Nonsurvivable intracranial hemorrhage/brain injury with worsening clinical condition carrying a grim prognosis has been discussed in detail with patient's daughter, she wishes to continue current medical management to include full code until she sees patient. Patient's friend Xu reports today that he has spoken with pt's daughter who confirmed receipt of letter, she is in the process of obtaining [place] visa/travel arrangements. - SYMPTOMS - * dyspnea - respiratory failure after brain bleed, cardiac arrest. on pressors. intubated. * encephalopathy - pt w/o brain stem reflexes and severely abnormal EEG. Should family want to be aggressive, next step per neurology would be cerebral perfusion blood study. - d/w Dr Nolan. - Palliative care will continue to follow during hospital course as condition evolves, to assist patient/decision-maker with understanding of medical conditions, weighing benefits/burdens of treatment options, for clarification of goals of treatment. Additionally will assist with any symptoms of palliative concern. Time Spent Total Floor Time (mins): 36 (Total time to include review of medical records, physical exam, conversation with patient's friend Xu, multiple attempts at reaching patient's daughter Emily, case discussion with attending.) >50% Time in Counseling or Coordination of Care: Yes (Total visit time = 36 minutes; > 50% spent counseling/coordinating care) Attestation Attestation: To help prompt me to consider important information that might be impacting today's encounter and assessment, information from prior notes written by myself or my colleagues may have been "brought forward" into today's note. My signature on this note, however, is an attestation that I personally performed the exam, history, and/or decision-making noted today, and, unless otherwise indicated, the interactions with patient, family, and staff as well as the review of records all occurred today. I also attest that the listed assessment and stated plan reflect my best clinical judgment today based on the combination of historical information, prior notes, and today's exam/ interactions. When time spent is documented, it refers only to time spent today by the signer, or if indicated, combined time spent today by collaborating physician/nurse practitioner.
[2018-04-04] MEDS: Phenylephrine Inj 160 MG in Sodium Chlor 0.9% Inj 484 ML IV.CONT PRN (16:47)
[2018-04-05] MEDS: Oral Hygiene Kit OROPHARYNG SCH ×4 (01:16→18:54)
[2018-04-05] MEDS: Chlorhexidine Gluconate 2% 1 Pack (2 Cloths) TOPICAL SCH (03:26)
[2018-04-05 05:53] LABS: Hematocrit 35.4 % (39.0-51.0); Hemoglobin 11.6 gm/dL (13.0-17.0); Mean Corpuscular HGB Conc 32.7 % (32.0-36.0); Mean Corpuscular Hemoglobin 28.8 pg (27.0-34.0); Mean Corpuscular Volume 88.3 fL (80.0-100.0); Mean Platelet Volume 8.6 fL (7.0-11.0); Platelet Count 35 th/mm3 (150-450); Red Blood Count 4.01 mil/mm3 (4.50-5.90); Red Cell Distribution Width 16.6 % (11.6-17.2); White Blood Count 3.7 th/mm3 (4.0-11.0)
[2018-04-05] MEDS: Dextrose 5% in Water Inj 1,000 ML IV.CONT SCH ×2 (06:08→15:22)
[2018-04-05 06:23] LABS: Calcium 7.6 mg/dL (8.5-10.1); Carbon Dioxide 21.3 meq/L (21.0-32.0); Potassium 3.3 meq/L (3.5-5.1)
[2018-04-05] MEDS: Senna/Docusate Sodium 8.6/50 MG Tablet PO SCH ×2 (08:14→20:15)
[2018-04-05] MEDS: Chlorhexidine 0.12% Oral Kit 15 ML UDC OROPHARYNG SCH ×2 (08:14→19:57)
[2018-04-05] MEDS: Pantoprazole Inj 40 MG Vial IV.PUSH SCH (08:14)
[2018-04-05 09:17] LABS: ABG Base Excess -4.1 mmol/L (-2-2); ABG PCO2 32 mmHg (38-42); ABG PO2 165 mmHg (61-120)
[2018-04-05 11:42] LABS: ABG Base Excess -3.7 mmol/L (-2-2); ABG PCO2 67 mmHg (38-42); ABG PO2 113 mmHg (61-120)
--- NOTE | 2018-04-05 11:56 | P.PNCC ---
Subjective Subjective Remarks/Hospital Course: 67-year-old Amharic-speaking male with past medical history of hemorrhagic stroke, essential hypertension, hyperlipidemia, GERD, iron deficiency anemia, depression who presented to [facility] after V. fib cardiac arrest. Apparently he was found unresponsive at the custodial and CPR was initiated. He was in V. fib upon [facility] arrival. Per report from ED physician, patient received 5 doses of epinephrine and at least 5 shocks per [facility] and amiodarone 300 mg IV bolus. Upon arrival to the [place] emergency department, he remained in V. fib and was given 2 doses of epinephrine 5 mg IV each, amiodarone 100 mg IV, and additional defibrillation. He then had return of spontaneous circulation. He had an additional cardiac arrest in the emergency department which again responded to epinephrine. Transferred to [facility] was requested. I was informed that total duration of ACLS was 40 minutes. He was placed on epinephrine and phenylephrine prior to transfer. Records indicate that he has been a resident at custodial in [place] since and that he was transferred there from another custodial facility. He is wheelchair-bound at baseline. Records indicate that he is full code. There is no detailed advanced directive. 04/02: Patient has intermittent movement of head back and forth which does not appear to be purposeful. Cold calorics were tested yesterday with neurologist and patient had no response. He continues to have no cough, gag, or corneal reflexes. He also continues to have persistent hypotension requiring multiple pressors. Family meeting scheduled for today with palliative care around 11 AM. 04/03: Patient's custodial does not have POA paperwork naming his friend Xu as POA or medical decision maker. He mentioned to Anh from palliative care that the patient has an estranged daughter. Palliative care team is working on contacting her as she is next of kin. Otherwise, the patient's status has not changed; he continues to require multiple pressors to maintain a MAP of 65 mmHg and has had no improvement in neurologic status. 04/04: Remains comatose, orally intubated on mechanical ventilation. 04/05: Neurological exam consistent with the brain including apnea test Objective Vital Signs / I&O: Vital Signs 04/04/18 12:00 04/04/18 12:15 04/04/18 12:30 Temperature 98.4 F Pulse Rate 101 H 102 H 101 H Respiratory Rate 20 20 20 Blood Pressure 132/79 126/78 120/80 Pulse Oximetry 99 99 99 04/04/18 12:45 04/04/18 13:00 04/04/18 13:15 Temperature Pulse Rate 100 H 98 H 97 H Respiratory Rate 20 20 20 Blood Pressure 131/83 128/82 136/82 Pulse Oximetry 99 99 99 04/04/18 13:30 04/04/18 13:45 04/04/18 14:00 Temperature Pulse Rate 97 H 96 H 96 H Respiratory Rate 20 20 20 Blood Pressure 120/72 125/76 127/78 Pulse Oximetry 99 99 99 04/04/18 14:15 04/04/18 14:30 04/04/18 14:45 Temperature Pulse Rate 95 H 95 H 95 H Respiratory Rate 20 20 20 Blood Pressure 121/78 128/80 126/80 Pulse Oximetry 99 99 99 04/04/18 15:00 04/04/18 15:15 04/04/18 15:30 Temperature Pulse Rate 95 H 95 H 96 H Respiratory Rate 20 20 20 Blood Pressure 132/82 126/78 134/80 Pulse Oximetry 100 100 100 04/04/18 15:45 04/04/18 15:51 04/04/18 16:00 Temperature 98.2 F Pulse Rate 96 H 97 H 98 H Respiratory Rate 20 20 20 Blood Pressure 72/46 L 91/62 L 107/71 Pulse Oximetry 99 100 100 04/04/18 16:15 04/04/18 16:30 04/04/18 19:45 Temperature Pulse Rate 98 H 98 H 96 H Respiratory Rate 20 14 20 Blood Pressure 111/66 116/72 149/88 H Pulse Oximetry 100 100 100 04/04/18 20:00 04/04/18 20:15 04/04/18 20:30 Temperature 98.2 F Pulse Rate 95 H 94 H 93 H Respiratory Rate 20 20 20 Blood Pressure 149/93 H 146/93 H 139/81 Pulse Oximetry 100 100 100 04/04/18 20:41 04/04/18 20:45 04/04/18 21:00 Temperature Pulse Rate 91 H 91 H 93 H Respiratory Rate 20 20 20 Blood Pressure 149/94 H 142/91 H Pulse Oximetry 99 100 99 04/04/18 21:15 04/04/18 21:30 04/04/18 21:45 Temperature Pulse Rate 95 H 96 H 97 H Respiratory Rate 20 20 20 Blood Pressure 146/95 H 154/98 H 157/101 H Pulse Oximetry 100 100 100 04/04/18 22:00 04/04/18 22:15 04/04/18 22:30 Temperature Pulse Rate 97 H 97 H 97 H Respiratory Rate 20 20 20 Blood Pressure 151/96 H 166/103 H 170/102 H Pulse Oximetry 100 100 100 04/04/18 22:45 04/04/18 23:00 04/04/18 23:15 Temperature Pulse Rate 97 H 96 H 96 H Respiratory Rate 20 20 20 Blood Pressure 163/105 H 147/95 H 163/100 H Pulse Oximetry 100 100 100 04/04/18 23:30 04/04/18 23:45 04/05/18 00:00 Temperature Pulse Rate 96 H 95 H 94 H Respiratory Rate 20 20 20 Blood Pressure 163/105 H 144/93 H 148/95 H Pulse Oximetry 100 100 100 04/05/18 00:13 04/05/18 00:15 04/05/18 00:30 Temperature Pulse Rate 94 H 94 H Respiratory Rate 20 20 20 Blood Pressure 146/97 H 149/95 H Pulse Oximetry 100 100 100 04/05/18 00:45 04/05/18 01:00 04/05/18 01:15 Temperature Pulse Rate 94 H 93 H 93 H Respiratory Rate 20 20 20 Blood Pressure 152/96 H 158/98 H 154/96 H Pulse Oximetry 100 100 100 04/05/18 01:30 04/05/18 01:45 04/05/18 02:00 Temperature Pulse Rate 93 H 93 H 93 H Respiratory Rate 20 20 20 Blood Pressure 141/89 H 163/97 H 154/94 H Pulse Oximetry 100 100 100 04/05/18 02:15 04/05/18 02:30 04/05/18 02:45 Temperature Pulse Rate 93 H 91 H 89 Respiratory Rate 20 20 20 Blood Pressure 162/100 H 124/83 126/84 Pulse Oximetry 100 100 100 04/05/18 03:00 04/05/18 03:15 04/05/18 03:28 Temperature Pulse Rate 88 88 88 Respiratory Rate 20 20 20 Blood Pressure 130/88 131/90 Pulse Oximetry 100 100 04/05/18 03:30 04/05/18 03:45 04/05/18 04:00 Temperature 97.4 F L Pulse Rate 87 87 88 Respiratory Rate 20 20 20 Blood Pressure 153/98 H 141/93 H 142/93 H Pulse Oximetry 100 100 100 04/05/18 04:15 04/05/18 04:30 04/05/18 04:40 Temperature Pulse Rate 88 87 87 Respiratory Rate 20 20 20 Blood Pressure 143/92 H 145/91 H 120/79 Pulse Oximetry 100 100 100 04/05/18 04:46 04/05/18 04:49 04/05/18 04:52 Temperature Pulse Rate 91 H 92 H 94 H Respiratory Rate 23 20 20 Blood Pressure 93/43 L 72/42 L 102/66 Pulse Oximetry 100 100 100 04/05/18 04:56 04/05/18 05:00 04/05/18 05:02 Temperature Pulse Rate 105 H 105 H 104 H Respiratory Rate 20 20 20 Blood Pressure 150/111 H 137/88 137/94 H Pulse Oximetry 82 L 100 100 04/05/18 05:11 04/05/18 05:32 04/05/18 05:47 Temperature Pulse Rate 101 H 100 H 99 H Respiratory Rate 20 20 20 Blood Pressure 122/83 117/78 98/76 L Pulse Oximetry 99 100 96 04/05/18 06:00 04/05/18 06:17 04/05/18 06:32 Temperature Pulse Rate 98 H 97 H 96 H Respiratory Rate 20 20 20 Blood Pressure 109/82 109/83 101/78 Pulse Oximetry 98 99 100 04/05/18 06:47 04/05/18 07:00 04/05/18 07:02 Temperature Pulse Rate 95 H 93 H 93 H Respiratory Rate 20 20 20 Blood Pressure 130/85 121/85 Pulse Oximetry 97 99 97 04/05/18 07:17 04/05/18 07:32 04/05/18 07:47 Temperature Pulse Rate 95 H 93 H 93 H Respiratory Rate 20 20 20 Blood Pressure 124/87 112/77 103/81 Pulse Oximetry 97 98 98 04/05/18 07:55 04/05/18 08:00 04/05/18 08:02 Temperature 97.4 F L Pulse Rate 93 H 93 H Respiratory Rate 20 20 20 Blood Pressure 104/79 Pulse Oximetry 99 98 99 04/05/18 08:17 04/05/18 08:32 04/05/18 08:35 Temperature Pulse Rate 93 H 91 H 91 H Respiratory Rate 20 20 20 Blood Pressure 110/80 102/67 Pulse Oximetry 98 98 04/05/18 08:47 04/05/18 09:00 04/05/18 09:02 Temperature Pulse Rate 89 88 88 Respiratory Rate 20 20 20 Blood Pressure 129/86 122/84 Pulse Oximetry 99 99 99 04/05/18 09:17 04/05/18 09:32 04/05/18 09:47 Temperature Pulse Rate 88 88 87 Respiratory Rate 20 20 20 Blood Pressure 125/84 124/86 126/85 Pulse Oximetry 99 99 99 04/05/18 10:00 04/05/18 10:02 04/05/18 10:17 Temperature Pulse Rate 87 87 87 Respiratory Rate 20 20 20 Blood Pressure 123/84 121/85 Pulse Oximetry 99 99 99 04/05/18 10:32 04/05/18 10:47 Temperature Pulse Rate 87 83 Respiratory Rate 20 20 Blood Pressure 119/85 126/87 Pulse Oximetry 99 98 Intake & Output 04/04/18 04/05/18 04/05/18 18:59 06:59 18:59 Intake Total 2676 / 2676 2100 / 2100 200 / 200 Output Total 2300 / 2300 3050 / 3050 Balance 376 / 376 -950 / -950 200 / 200 Weight 69.1 kg Intake: IV 2476 / 2476 1500 / 1500 Cordarone Inj 450 MG In D5W Inj 107 / 107 250 / 250 241 ML @ 1 MG/MIN 33.33 mls/hr IV.CONT TITRATE PRN Rx#: [id number] D5W Inj 1,000 ML @ 100 mls/hr 1999 / 1999 1000 / 1000 IV.CONT .Q10H LAURA Rx#:[id number] EPINEPHrine (1:1000) Inj 4 MG 87 / 87 250 / 250 In D5W Inj 246 ML @ 3 MCG/MIN 11.25 mls/hr IV.CONT TITRATE PRN Rx#:[id number] Neosynephrine Inj 160 MG In NS 272 / 272 Inj 484 ML @ 40 MCG/MIN 7.5 mls /hr IV.CONT TITRATE PRN Rx#: [id number] fentaNYL 10 mcg/mL Premix Drip 10 / 10 2,500 mcg In 250 ml @ 50 MCG/HR 5 mls/hr IV.SIG TITRATE PRN Rx #:[id number] Free Water Amount 200 / 200 600 / 600 200 / 200 Output: Urine Amount (Catheter) 2300 / 2300 3050 / 3050 Indwelling Temp Sensing 2300 / 2300 3050 / 3050 Catheter Result Diagrams: 04/05/18 05:44 04/05/18 05:44 Objective Remarks: GEN: Ill-appearing elderly male, intubated, off sedation HEENT: No cough, gag, or corneal reflexes; occasional non-purposeful side-to- side movement of head NECK: Trachea midline CARDIO: Tachy, regular PULM: Mechanical breath sounds bilaterally ABD/GI: Soft, non-distended EXT/MSK: 1+ peripheral edema SKIN: No rashes or lesions NEURO: GCS 3T (E1VTM1), does not withdraw extremities to noxious stimuli, no cough/ gag/ corneal reflexes, pupils fixed and dilated PSYCH: Unable to assess Neurologic examination -Coma -Absent brain-originating motor response, including response to pain stimulus above the neck or other brain-originating movements -Absent pupillary light reflex; pupils are midposition and dilated (8 mm) -Absent corneal reflexes -Absent oculovestibular reflexes (caloric responses) -Absent gag reflex -Absent cough with tracheal suctioning -Absent sucking or rooting reflexes Apnea as demonstrated by apnea test -Apnea test was is performed after all other criteria for brain have been met. Core temperature > 36C , systolic blood pressure >100 mmHg, PaCO2 32 and absence of hypoxia. The apnea test has demonstrated a positive test as there there is no respiratory response with increase of PCO2 above 60 and to more than 20 mmHg greater than baseline values (32 -> 67 respectively) Patient meets all criteria of a brain Assessment and Plan - Problem List (1) Intracerebral hemorrhage Code(s): I61.9 - Nontraumatic intracerebral hemorrhage, unspecified Status: Acute (2) Respiratory failure Code(s): J96.90 - Respiratory failure, unspecified, unspecified whether with hypoxia or hypercapnia Status: Acute (3) Ischemic hepatitis Code(s): K75.9 - Inflammatory liver disease, unspecified Status: Acute (4) LARS (acute kidney injury) Code(s): N17.9 - Acute kidney failure, unspecified Status: Acute (5) Coagulopathy Code(s): D68.9 - Coagulation defect, unspecified Status: Acute (6) Hypernatremia Code(s): E87.0 - Hyperosmolality and hypernatremia Status: Acute (7) Hypokalemia Code(s): E87.6 - Hypokalemia Status: Acute (8) Hypophosphatemia Code(s): E83.39 - Other disorders of phosphorus metabolism Status: Acute (9) Cardiac arrest with ventricular fibrillation Code(s): I46.9 - Cardiac arrest, cause unspecified; I49.01 - Ventricular fibrillation Status: Inactive (10) Anoxia of brain Code(s): G93.1 - Anoxic brain damage, not elsewhere classified Status: Acute - Assessment and Plan Plan: NEURO: Cerebellar and intraventricular hemorrhage Obstructive hydrocephalus Cerebral anoxia History of hemorrhagic stroke Depression Nonambulatory at baseline Nonsurvivable intracerebral hemorrhage resulting in cardiac arrest The patient meets all criteria of a brain . The second physician brain exam pending. Level 1
--- NOTE | 2018-04-05 12:31 | P.PNPAL ---
Reason for Visit Reason for visit: a. To assist with evaluation and management of symptoms including: encephalopathy, dyspnea b. To assist medical decision maker(s) with: better understanding of current medical conditions; weighing benefits/burdens of medical treatment options; making medical treatment decisions. Subjective Subjective/Interval History: Mr. Maradiaga is a 68 y/o male who presented on 04/01 after suffering brain bleed and subsequent cardiac arrest. Currently intubated, on pressors. Has no evidence intact brainstem reflexes, EEG severely abnormal and nearly flat. Patient with nonsurvivable intracranial hemorrhage currently on multiple vasopressors, not a candidate for further support. Nonsurvivable injury. Palliative care follow-up for further clarifications of goals of care given the above. Patient seen in ICU. Remains endotracheally intubated on mechanical ventilation. Currently on epinephrine, dopamine and phenylephrine drip in addition to amiodarone drip. Off fentanyl drip since yesterday. Patient comatose, unresponsive to verbal or tactile stimuli. No corneal reflexes, no cough reflex. No withdrawal to pain. Neurology Dr. Rios following. Patient afebrile, stable hemodynamically. As per snow removing supervisor Dr. Mckeon patient meets criteria for brain given neurological examination. Pending second physician brain exam. Earlier this morning, palliative care received telephone call from patient's biological daughter Emily Maradiaga who resides in [facility]. No chances of recovery/nonsurvivable injury were discussed with daughter. Daughter still deferring goals of care decisions until she is at bedside, currently attempting to obtain humanitarian [place] visa to travel sometime next week. Daughter requesting medical records to be sent to her via [employer] or email. Discussed with daughter that medical records are protected private information which we cannot disclose through those means. Communicated to daughter that we will need contact information with telephone number/email address at the [facility] in [facility] to fulfill her request with the appropriate signed release of medical records consent. Furthermore, discussed with daughter that given patient's clinical condition, his life expectancy is very limited and he is not likely to survive until her arrival. Daughter verbalized understanding, stated "it is in God's hands". Telephone call to patient's local friend Xu, left message on voicemail. Case discussed with bedside FELICE Samson. Advance Directives Living Will: Never completed Health Care Surrogate: Never completed Durable Power of Air Quality Manager: Never completed Objective Vital Signs: Vital Signs 04/04/18 12:30 04/04/18 12:45 04/04/18 13:00 Temperature Pulse Rate 101 H 100 H 98 H Respiratory Rate 20 20 20 Blood Pressure 120/80 131/83 128/82 Pulse Oximetry 99 99 99 04/04/18 13:15 04/04/18 13:30 04/04/18 13:45 Temperature Pulse Rate 97 H 97 H 96 H Respiratory Rate 20 20 20 Blood Pressure 136/82 120/72 125/76 Pulse Oximetry 99 99 99 04/04/18 14:00 04/04/18 14:15 04/04/18 14:30 Temperature Pulse Rate 96 H 95 H 95 H Respiratory Rate 20 20 20 Blood Pressure 127/78 121/78 128/80 Pulse Oximetry 99 99 99 04/04/18 14:45 04/04/18 15:00 04/04/18 15:15 Temperature Pulse Rate 95 H 95 H 95 H Respiratory Rate 20 20 20 Blood Pressure 126/80 132/82 126/78 Pulse Oximetry 99 100 100 04/04/18 15:30 04/04/18 15:45 04/04/18 15:51 Temperature Pulse Rate 96 H 96 H 97 H Respiratory Rate 20 20 20 Blood Pressure 134/80 72/46 L 91/62 L Pulse Oximetry 100 99 100 04/04/18 16:00 04/04/18 16:15 04/04/18 16:30 Temperature 98.2 F Pulse Rate 98 H 98 H 98 H Respiratory Rate 20 20 14 Blood Pressure 107/71 111/66 116/72 Pulse Oximetry 100 100 100 04/04/18 19:45 04/04/18 20:00 04/04/18 20:15 Temperature 98.2 F Pulse Rate 96 H 95 H 94 H Respiratory Rate 20 20 20 Blood Pressure 149/88 H 149/93 H 146/93 H Pulse Oximetry 100 100 100 04/04/18 20:30 04/04/18 20:41 04/04/18 20:45 Temperature Pulse Rate 93 H 91 H 91 H Respiratory Rate 20 20 20 Blood Pressure 139/81 149/94 H Pulse Oximetry 100 99 100 04/04/18 21:00 04/04/18 21:15 04/04/18 21:30 Temperature Pulse Rate 93 H 95 H 96 H Respiratory Rate 20 20 20 Blood Pressure 142/91 H 146/95 H 154/98 H Pulse Oximetry 99 100 100 04/04/18 21:45 04/04/18 22:00 04/04/18 22:15 Temperature Pulse Rate 97 H 97 H 97 H Respiratory Rate 20 20 20 Blood Pressure 157/101 H 151/96 H 166/103 H Pulse Oximetry 100 100 100 04/04/18 22:30 04/04/18 22:45 04/04/18 23:00 Temperature Pulse Rate 97 H 97 H 96 H Respiratory Rate 20 20 20 Blood Pressure 170/102 H 163/105 H 147/95 H Pulse Oximetry 100 100 100 04/04/18 23:15 04/04/18 23:30 04/04/18 23:45 Temperature Pulse Rate 96 H 96 H 95 H Respiratory Rate 20 20 20 Blood Pressure 163/100 H 163/105 H 144/93 H Pulse Oximetry 100 100 100 04/05/18 00:00 04/05/18 00:13 04/05/18 00:15 Temperature Pulse Rate 94 H 94 H Respiratory Rate 20 20 20 Blood Pressure 148/95 H 146/97 H Pulse Oximetry 100 100 100 04/05/18 00:30 04/05/18 00:45 04/05/18 01:00 Temperature Pulse Rate 94 H 94 H 93 H Respiratory Rate 20 20 20 Blood Pressure 149/95 H 152/96 H 158/98 H Pulse Oximetry 100 100 100 04/05/18 01:15 04/05/18 01:30 04/05/18 01:45 Temperature Pulse Rate 93 H 93 H 93 H Respiratory Rate 20 20 20 Blood Pressure 154/96 H 141/89 H 163/97 H Pulse Oximetry 100 100 100 04/05/18 02:00 04/05/18 02:15 04/05/18 02:30 Temperature Pulse Rate 93 H 93 H 91 H Respiratory Rate 20 20 20 Blood Pressure 154/94 H 162/100 H 124/83 Pulse Oximetry 100 100 100 04/05/18 02:45 04/05/18 03:00 04/05/18 03:15 Temperature Pulse Rate 89 88 88 Respiratory Rate 20 20 20 Blood Pressure 126/84 130/88 131/90 Pulse Oximetry 100 100 100 04/05/18 03:28 04/05/18 03:30 04/05/18 03:45 Temperature Pulse Rate 88 87 87 Respiratory Rate 20 20 20 Blood Pressure 153/98 H 141/93 H Pulse Oximetry 100 100 04/05/18 04:00 04/05/18 04:15 04/05/18 04:30 Temperature 97.4 F L Pulse Rate 88 88 87 Respiratory Rate 20 20 20 Blood Pressure 142/93 H 143/92 H 145/91 H Pulse Oximetry 100 100 100 04/05/18 04:40 04/05/18 04:46 04/05/18 04:49 Temperature Pulse Rate 87 91 H 92 H Respiratory Rate 20 23 20 Blood Pressure 120/79 93/43 L 72/42 L Pulse Oximetry 100 100 100 04/05/18 04:52 04/05/18 04:56 04/05/18 05:00 Temperature Pulse Rate 94 H 105 H 105 H Respiratory Rate 20 20 20 Blood Pressure 102/66 150/111 H 137/88 Pulse Oximetry 100 82 L 100 04/05/18 05:02 04/05/18 05:11 04/05/18 05:32 Temperature Pulse Rate 104 H 101 H 100 H Respiratory Rate 20 20 20 Blood Pressure 137/94 H 122/83 117/78 Pulse Oximetry 100 99 100 04/05/18 05:47 04/05/18 06:00 04/05/18 06:17 Temperature Pulse Rate 99 H 98 H 97 H Respiratory Rate 20 20 20 Blood Pressure 98/76 L 109/82 109/83 Pulse Oximetry 96 98 99 04/05/18 06:32 04/05/18 06:47 04/05/18 07:00 Temperature Pulse Rate 96 H 95 H 93 H Respiratory Rate 20 20 20 Blood Pressure 101/78 130/85 Pulse Oximetry 100 97 99 04/05/18 07:02 04/05/18 07:17 04/05/18 07:32 Temperature Pulse Rate 93 H 95 H 93 H Respiratory Rate 20 20 20 Blood Pressure 121/85 124/87 112/77 Pulse Oximetry 97 97 98 04/05/18 07:47 04/05/18 07:55 04/05/18 08:00 Temperature 97.4 F L Pulse Rate 93 H 93 H Respiratory Rate 20 20 20 Blood Pressure 103/81 Pulse Oximetry 98 99 98 04/05/18 08:02 04/05/18 08:17 04/05/18 08:32 Temperature Pulse Rate 93 H 93 H 91 H Respiratory Rate 20 20 20 Blood Pressure 104/79 110/80 102/67 Pulse Oximetry 99 98 98 04/05/18 08:35 04/05/18 08:47 04/05/18 09:00 Temperature Pulse Rate 91 H 89 88 Respiratory Rate 20 20 20 Blood Pressure 129/86 Pulse Oximetry 99 99 04/05/18 09:02 04/05/18 09:17 04/05/18 09:32 Temperature Pulse Rate 88 88 88 Respiratory Rate 20 20 20 Blood Pressure 122/84 125/84 124/86 Pulse Oximetry 99 99 99 04/05/18 09:47 04/05/18 10:00 04/05/18 10:02 Temperature Pulse Rate 87 87 87 Respiratory Rate 20 20 20 Blood Pressure 126/85 123/84 Pulse Oximetry 99 99 99 04/05/18 10:17 04/05/18 10:32 04/05/18 10:47 Temperature Pulse Rate 87 87 83 Respiratory Rate 20 20 20 Blood Pressure 121/85 119/85 126/87 Pulse Oximetry 99 99 98 Intake & Output 04/04/18 04/05/18 04/05/18 18:59 06:59 18:59 Intake Total 2676 / 2676 2100 / 2100 200 / 200 Output Total 2300 / 2300 3050 / 3050 Balance 376 / 376 -950 / -950 200 / 200 Weight 69.1 kg Intake: IV 2476 / 2476 1500 / 1500 Cordarone Inj 450 MG In D5W Inj 107 / 107 250 / 250 241 ML @ 1 MG/MIN 33.33 mls/hr IV.CONT TITRATE PRN Rx#: [id number] D5W Inj 1,000 ML @ 100 mls/hr 1999 / 1999 1000 / 1000 IV.CONT .Q10H LAURA Rx#:[id number] EPINEPHrine (1:1000) Inj 4 MG 87 / 87 250 / 250 In D5W Inj 246 ML @ 3 MCG/MIN 11.25 mls/hr IV.CONT TITRATE PRN Rx#:[id number] Neosynephrine Inj 160 MG In NS 272 / 272 Inj 484 ML @ 40 MCG/MIN 7.5 mls /hr IV.CONT TITRATE PRN Rx#: [id number] fentaNYL 10 mcg/mL Premix Drip 10 / 10 2,500 mcg In 250 ml @ 50 MCG/HR 5 mls/hr IV.SIG TITRATE PRN Rx #:[id number] Free Water Amount 200 / 200 600 / 600 200 / 200 Output: Urine Amount (Catheter) 2300 / 2300 3050 / 3050 Indwelling Temp Sensing 2300 / 2300 3050 / 3050 Catheter Physical Exam: CONSTITUTIONAL/GENERAL: This is an adequately nourished patient, in no apparent distress. Endotracheally intubated on mechanical ventilation. TUBES/LINES/DRAINS: OETT, OGT, cuevas, central line, bilateral soft wrist restraints, SCDs. SKIN: No jaundice, rashes, or lesions. Ecchymoses on upper extremities. No wounds seen anteriorly. Skin temperature appropriate. Not diaphoretic. Scattered abrasions to right leg. HEAD: Atraumatic. Normocephalic. EYES: pupils fixed and dilated. +scleredema. No scleral icterus. Fundi not examined. ENT: unable to assess hearing. Nose without bleeding or purulent drainage. Throat exam inhibited by ETT. Moist oral mucosa. NECK: Trachea midline. Supple. CARDIOVASCULAR: Tachycardic with heart rate in the 110s. RRR without murmurs, gallops, or rubs. No JVD. Peripheral pulses symmetric. RESPIRATORY/CHEST: Symmetric, unlabored respirations. Clear to auscultation. Breath sounds equal bilaterally. No wheezes, rales, or rhonchi. GASTROINTESTINAL: Abdomen soft, non-tender, nondistended. Bowel sounds present. GENITOURINARY: Without palpable bladder distension. Cuevas catheter in place. MUSCULOSKELETAL: Extremities without clubbing, cyanosis.+ bue edema. No joint tenderness or effusion noted. No calf tenderness. No mottling or clubbing. NEUROLOGICAL: Comatose. Does not withdraw to pain. Negative corneal reflexes. PSYCHIATRIC:unable to assess given clinical condition. Diagnostic Tests Laboratory: Laboratory Results - last 72 hr 04/02/18 04/02/18 04/03/18 12:00 18:58 04:11 WBC RBC Hgb Hct MCV MCH MCHC RDW Plt Count MPV Puncture Site Patient Temperature O2 Saturation ABG pH ABG pCO2 ABG pO2 ABG HCO3 ABG O2 Content ABG Base Excess ABG Methemoglobin Hemoglobin Carboxyhemoglobin O2 Delivery Device Liter Flow Vent Setting Inspired O2 Critical Value Sodium 153 H Potassium 4.0 Chloride 122 H Carbon Dioxide 20.6 L Anion Gap 10 BUN 17 Creatinine 1.63 H Estimated GFR 42 L POC Glucose 161 H Random Glucose 199 H Lactic Acid 5.4 H* Calcium 7.2 L* Calcium Adj for Albumin 8.8 Magnesium 1.9 D Albumin 2.0 L 04/03/18 04/03/18 04/03/18 07:54 10:45 10:45 WBC 9.0 RBC 4.29 L Hgb 12.6 L Hct 38.1 L MCV 88.9 MCH 29.4 MCHC 33.0 RDW 16.0 Plt Count 70 L D MPV 8.6 Puncture Site Patient Temperature O2 Saturation ABG pH ABG pCO2 ABG pO2 ABG HCO3 ABG O2 Content ABG Base Excess ABG Methemoglobin Hemoglobin Carboxyhemoglobin O2 Delivery Device Liter Flow Vent Setting Inspired O2 Critical Value Sodium 160 H* Potassium 4.4 Chloride 128 H Carbon Dioxide 23.5 Anion Gap 9 BUN 13 Creatinine 1.44 H Estimated GFR 48 L POC Glucose 187 H Random Glucose 212 H Lactic Acid Calcium 7.2 L* Calcium Adj for Albumin 8.9 Magnesium Albumin 1.9 L 04/03/18 04/04/18 04/04/18 13:08 05:00 05:00 WBC 7.6 RBC 4.36 L Hgb 12.6 L Hct 38.3 L MCV 87.8 MCH 28.9 MCHC 33.0 RDW 16.4 Plt Count 57 L MPV 8.6 Puncture Site Patient Temperature O2 Saturation ABG pH ABG pCO2 ABG pO2 ABG HCO3 ABG O2 Content ABG Base Excess ABG Methemoglobin Hemoglobin Carboxyhemoglobin O2 Delivery Device Liter Flow Vent Setting Inspired O2 Critical Value Sodium 167 H* Potassium 4.2 Chloride 138 H D Carbon Dioxide 22.4 Anion Gap 7 BUN 13 Creatinine 1.29 Estimated GFR 55 L POC Glucose 176 H Random Glucose 208 H Lactic Acid Calcium 8.0 L D Calcium Adj for Albumin Magnesium Albumin 04/04/18 04/04/18 04/05/18 14:01 16:15 05:44 WBC 3.7 L RBC 4.01 L Hgb 11.6 L Hct 35.4 L MCV 88.3 MCH 28.8 MCHC 32.7 RDW 16.6 Plt Count 35 L D MPV 8.6 Puncture Site Patient Temperature O2 Saturation ABG pH ABG pCO2 ABG pO2 ABG HCO3 ABG O2 Content ABG Base Excess ABG Methemoglobin Hemoglobin Carboxyhemoglobin O2 Delivery Device Liter Flow Vent Setting Inspired O2 Critical Value Sodium Potassium Chloride Carbon Dioxide Anion Gap BUN Creatinine Estimated GFR POC Glucose 152 H 166 H Random Glucose Lactic Acid Calcium Calcium Adj for Albumin Magnesium Albumin 04/05/18 04/05/18 04/05/18 05:44 08:57 11:21 WBC RBC Hgb Hct MCV MCH MCHC RDW Plt Count MPV Puncture Site Art line Patient Temperature 98.6 O2 Saturation 97 ABG pH 7.41 ABG pCO2 32 L ABG pO2 165 H ABG HCO3 20 L ABG O2 Content 16.2 ABG Base Excess -4.1 L ABG Methemoglobin 1.3 Hemoglobin 11.6 L Carboxyhemoglobin 1.1 O2 Delivery Device Ventilator Liter Flow Vent Setting 20/500/peep10 Inspired O2 40 Critical Value No Sodium 170 H* Potassium 3.3 L D Chloride 140 H Carbon Dioxide 21.3 Anion Gap 9 BUN 16 Creatinine 1.45 H Estimated GFR 48 L POC Glucose 59 L Random Glucose 339 H D Lactic Acid Calcium 7.6 L Calcium Adj for Albumin Magnesium Albumin 04/05/18 04/05/18 04/05/18 11:22 11:28 11:32 WBC RBC Hgb Hct MCV MCH MCHC RDW Plt Count MPV Puncture Site Art line Patient Temperature 98.6 O2 Saturation 95 ABG pH 7.17 L* ABG pCO2 67 H* ABG pO2 113 ABG HCO3 24 ABG O2 Content 15.8 ABG Base Excess -3.7 L ABG Methemoglobin 1.3 Hemoglobin 11.8 L Carboxyhemoglobin 0.8 O2 Delivery Device Insufflator Liter Flow 13.00 Vent Setting Inspired O2 Critical Value Yes Sodium Potassium Chloride Carbon Dioxide Anion Gap BUN Creatinine Estimated GFR POC Glucose 45 L* 179 H Random Glucose Lactic Acid Calcium Calcium Adj for Albumin Magnesium Albumin Result Diagrams: 04/05/18 05:44 04/05/18 05:44 Microbiology: Microbiology 04/01/18 06:18 Aerobic Blood Culture - Preliminary Blood - Peripheral No growth in 4 days Anaerobic Blood Culture - Preliminary No growth in 4 days 04/01/18 06:00 Aerobic Blood Culture - Preliminary Blood - Peripheral No growth in 4 days Anaerobic Blood Culture - Preliminary No growth in 4 days 04/01/18 06:16 Urine Culture - Final Catheterized Urine No growth in 48 hours Procedures: 04/01 art line placed 04/01 central line placed 04/01 intubated Assessment and Plan - Disease Oriented Problem List (1) Anoxia of brain (2) Respiratory failure (3) Intracerebral hemorrhage (4) Congestive heart failure Comment: per [facility] Pertinent Non-Medical Issues: Psychosocial: Pt was living in a [facility]. Has 1 biological daughter, Emily who lives in [facility]. Has 1 friend, Xu who is local. Pt originally from [facility]. Spiritual: pastoral care available. Legal: Pt is not capacitated to make decisions and it is unlikely he will regain capacity. Per [place] statutes proxy medical decision falls to his daughter Shae in [facility] Ethical issues impacting care: No ethical issues identified. Important Contacts: daughter/HCP - Emily Licona (international number/ [facility]) [phone] Xu Syed [phone] friend Prognosis: 67 y/o male who presented 04/01 after suffering brain bleed and subsequent cardiac arrest. Currently intubated, on pressors. Has no evidence intact brainstem reflexes, EEG severely abnormal and nearly flat. If compassionately removed from life support, expect he would imminently. Grave prognosis. Code Status: Full Code Plan: - LEGAL DECISION MAKER - Pt is not capacitated to make decisions given comatose state, NOT anticipated to regain medical decision-making capacity. No advance directives/POA forms reported as completed as per patient's long-term facility [facility], [place], operated by [facility] and patient's friend Xu. Patient is single, 1 biological daughter. As per [place] statue, healthcare proxy decision making falls to patient's only daughter Emily Licona who resides in [facility]. Daughter wishing to participating medical decision making. - CODE STATUS- FULL code. - GOALS -Daughter acting as healthcare proxy decision making is deferring goals of care decisions until she is able to personally see patient. Daughter resides in [facility], ongoing attempts by daughter at obtaining humanitarian visa to facilitate travel. Patient today meeting all criteria for brain , second physician for brain exam pending. Daughter has been made aware of patient's nonsurvivable injury, not likely to survive until her arrival. - SYMPTOMS - * dyspnea - respiratory failure after brain bleed, cardiac arrest. on pressors. intubated. * encephalopathy - pt w/o brain stem reflexes and severely abnormal EEG. Patient meeting all criteria for brain , pending second physician printed exam. - d/w Dr Nolan. - Palliative care will continue to follow during hospital course as condition evolves, to assist patient/decision-maker with understanding of medical conditions, weighing benefits/burdens of treatment options, for clarification of goals of treatment. Additionally will assist with any symptoms of palliative concern. Time Spent Total Floor Time (mins): 32 (Total time to include review of medical records, physical exam, goals of care conversation with patient's daughter Emily, case discussion with bedside RN.) >50% Time in Counseling or Coordination of Care: Yes (Total visit time = 32 minutes; > 50% spent counseling/coordinating care) Attestation Attestation: To help prompt me to consider important information that might be impacting today's encounter and assessment, information from prior notes written by myself or my colleagues may have been "brought forward" into today's note. My signature on this note, however, is an attestation that I personally performed the exam, history, and/or decision-making noted today, and, unless otherwise indicated, the interactions with patient, family, and staff as well as the review of records all occurred today. I also attest that the listed assessment and stated plan reflect my best clinical judgment today based on the combination of historical information, prior notes, and today's exam/ interactions. When time spent is documented, it refers only to time spent today by the signer, or if indicated, combined time spent today by collaborating physician/nurse practitioner.
[2018-04-05] MEDS: DOPamine 800 MG/500 ML Premix 800 MG/500 ML PLAST..BAG IV.CONT PRN (12:55)
[2018-04-05] MEDS: Phenylephrine Inj 160 MG in Sodium Chlor 0.9% Inj 484 ML IV.CONT PRN (12:57)
[2018-04-05 13:14] VITALS: RESP 20
--- NOTE | 2018-04-05 17:10 | P.PNNEU ---
Subjective Subjective Comments: no new neuro sx Active Medications: Active Medications Al Hydroxide/Mg Hydroxide (Milk Of Magnzan Liq) 30 ml PO Q12H PRN PRN Reason: Mild Constipation Albuterol (Albuterol Neb (Prn)) 2.5 mg NEB Q2HR NEB PRN PRN Reason: SHORTNESS OF BREATH/WHEEZING Albuterol (Duoneb Neb (Laura)) 1 ampul NEB Q6HR NEB LAURA Last Admin: 04/05/18 16:09 Dose: 1 ampul Bisacodyl (Dulcolax Supp) 10 mg RECTAL DAILY PRN PRN Reason: SEVERE CONSITIPATION Chlorhexidine Gluconate (Chlorhexidine 2% Cloth) 3 pack TOPICAL DAILY@0400 LAURA Stop: 04/06/18 03:59 Last Admin: 04/05/18 03:26 Dose: 3 pack Chlorhexidine Gluconate (Chlorhexidine 2% Cloth) 3 pack TOPICAL DAILY@0400 PRN PRN Reason: Extra cloth needed Stop: 04/06/18 03:59 Chlorhexidine Gluconate (Peridex 0.12% Oral Kit) 15 ml OROPHARYNG BID@0800, 2000 [facility] Last Admin: 04/05/18 08:14 Dose: 15 ml Dextrose (D50w Vial) 50 ml IV.PUSH UNSCH PRN PRN Reason: PER HYPOGLYCEMIA PROTOCOL Last Admin: 04/02/18 01:07 Dose: 50 ml Fentanyl Citrate (Fentanyl Inj) 50 mcg IV PUSH Q1H PRN PRN Reason: Pain scale 6-10, &/or sedation Glucagon (Glucagon Inj) 1 mg OTHER PRN PRN PRN Reason: for Hypoglycemia Protocol Phenylephrine HCl 160 mg/ (Sodium Chloride) 500 mls @ 7.5 mls/hr IV.CONT TITRATE PRN; Protocol PRN Reason: Per Protocol Last Admin: 04/05/18 12:57 Dose: 80 mcg/min, 15 mls/hr Epinephrine HCl 4 mg/ Dextrose 250 mls @ 11.25 mls/hr IV.CONT TITRATE PRN; Protocol PRN Reason: Per Protocol Last Admin: 04/05/18 12:54 Dose: 5 mcg/min, 18.75 mls/hr Amiodarone HCl 450 mg/ (Dextrose) 250 mls @ 33.33 mls/hr IV.CONT TITRATE PRN; Protocol PRN Reason: Per Protocol Last Admin: 04/05/18 15:19 Dose: 0.5 mg/min, 16.66 mls/hr Magnesium Sulfate 4 gm/ Sodium (Chloride) 100 mls @ 50 mls/hr IV.SIG UNSCH PRN PRN Reason: For Magnesium 0.9 - 1.1 mg/dL Magnesium Sulfate 2 gm/ Sodium (Chloride) 100 mls @ 50 mls/hr IV.SIG UNSCH PRN PRN Reason: For Magnesium 1.2 - 1.6 mg/dL Potassium Chloride (Kcl 40 Meq Premix Inj) 40 meq in 100 mls @ 25 mls/hr IV.SIG Q2H PRN PRN Reason: For Potassium 2.8 - 3.2 mEq/L Last Admin: 04/01/18 16:25 Dose: 25 mls/hr Potassium Chloride (Kcl 20 Meq Premix Inj) 20 meq in 100 mls @ 50 mls/hr IV.SIG Q2H PRN PRN Reason: For Potassium 3.3 - 3.5 mEq/L Potassium Chloride (Kcl 40 Meq Premix Inj) 40 meq in 100 mls @ 25 mls/hr IV.SIG UNSCH PRN PRN Reason: For Potassium 3.3 - 3.5 mEq/L Potassium Phosphate 30 mmol/ (Sodium Chloride) 260 mls @ 42 mls/hr IV.SIG UNSCH PRN PRN Reason: SEE LABEL COMMENTS Last Admin: 04/01/18 16:51 Dose: 42 mls/hr Sodium Phosphate 30 mmol/ (Sodium Chloride) 260 mls @ 42 mls/hr IV.SIG UNSCH PRN PRN Reason: For Phosphorus < 2.5 mg/dL Potassium Chloride (Kcl 20 Meq Premix Inj) 20 meq in 100 mls @ 50 mls/hr IV.SIG Q2H PRN PRN Reason: For Potassium 2.8 - 3.2 mEq/L Insulin Human Regular 100 unit (/ Sodium Chloride) 100 mls @ 0 mls/hr IV.CONT TITRATE PRN; Protocol PRN Reason: See protocol Last Titration: 04/02/18 07:21 Dose: 0 units/hr, 0 mls/hr Norepinephrine Bitartrate 16 (mg/ Sodium Chloride) 250 mls @ 1.87 mls/hr IV.CONT TITRATE PRN; Protocol PRN Reason: See Protocol Last Titration: 04/05/18 02:18 Dose: 0 mcg/min, 0 mls/hr Dopamine HCl/Dextrose (Dopamine 800 Mg/500 Ml Premix) 800 mg in 500 mls @ 7.819 mls/hr IV.CONT TITRATE PRN; Protocol PRN Reason: Per Protocol Last Admin: 04/05/18 12:55 Dose: 5 mcg/kg/min, 13.03 mls/hr Fentanyl (Fentanyl 10 Mcg/Ml Premix Drip) 2,500 mcg in 250 mls @ 5 mls/hr IV.SIG TITRATE PRN; Protocol PRN Reason: Per Protocol Last Titration: 04/04/18 07:30 Dose: Infused Dextrose (D5w Inj) 1,000 mls @ 100 mls/hr IV.CONT .Q10H [facility] Last Admin: 04/05/18 15:22 Dose: 100 mls/hr Lactulose (Lactulose Liq) 30 ml PO DAILY PRN PRN Reason: SEVERE CONSITIPATION Magnesium Oxide (Mag-Ox) 800 mg PO UNSCH PRN PRN Reason: For Magnesium 1.2 - 1.6 mg/dL Miscellaneous Medication () 1 each OROPHARYNG 0000,0400,1200,1600 [facility] Last Admin: 04/05/18 15:20 Dose: 1 each Ondansetron HCl (Zofran Inj) 4 mg IV.PUSH Q6H PRN PRN Reason: NAUSEA OR VOMITING Pantoprazole Sodium (Protonix Inj) 40 mg IV.PUSH DAILY [facility] Last Admin: 04/05/18 08:14 Dose: 40 mg Potassium Chloride (Kcl Liq) 40 meq PO UNSCH PRN PRN Reason: Potassium level 3.3-3.5 mEq/L Potassium Chloride (Kcl Liq) 40 meq PO UNSCH PRN PRN Reason: POTASSIUM LESS THAN 3.5 Potassium Phosphate (K-Phos Original) 2,000 mg PO Q4H PRN PRN Reason: Phosphorus Less Than 2.5 mg/dL Potassium Phosphate (K-Phos Original) 2,000 mg PO UNSCH PRN PRN Reason: SEE LABEL COMMENTS Senna/Docusate Sodium (Barbara-Colace) 1 tab PO BID [facility] Last Admin: 04/05/18 08:14 Dose: 1 tab Sennosides (Senokot) 17.2 mg PO Q12H PRN PRN Reason: Moderate Constipation Sodium Chloride (Ns Flush) 2 ml IV.FLUSH BID [facility] Last Admin: 04/05/18 08:14 Dose: 2 ml Sodium Chloride (Ns Flush) 2 ml IV.FLUSH PRN PRN PRN Reason: FLUSH AFTER USING IV ACCESS Last Admin: 04/02/18 08:43 Dose: 2 ml Sterile Water (Free Water) 0 ml NG/OG Q4H [facility] Last Admin: 04/05/18 13:00 Dose: 200 ml Terbutaline Sulfate (Brethine Inj) 1 mg SQ UNSCH PRN PRN Reason: Extravasation Allergies/Adverse Reactions: Allergies Allergy/AdvReac Type Severity Reaction Status Date / Time No Known Allergies Allergy Verified 03/31/18 23:56 Physical Exam Vital signs: Vital Signs 04/04/18 19:45 04/04/18 20:00 04/04/18 20:15 Temperature 98.2 F Pulse Rate 96 H 95 H 94 H Respiratory Rate 20 20 20 Blood Pressure 149/88 H 149/93 H 146/93 H Pulse Oximetry 100 100 100 04/04/18 20:30 04/04/18 20:41 04/04/18 20:45 Temperature Pulse Rate 93 H 91 H 91 H Respiratory Rate 20 20 20 Blood Pressure 139/81 149/94 H Pulse Oximetry 100 99 100 04/04/18 21:00 04/04/18 21:15 04/04/18 21:30 Temperature Pulse Rate 93 H 95 H 96 H Respiratory Rate 20 20 20 Blood Pressure 142/91 H 146/95 H 154/98 H Pulse Oximetry 99 100 100 04/04/18 21:45 04/04/18 22:00 04/04/18 22:15 Temperature Pulse Rate 97 H 97 H 97 H Respiratory Rate 20 20 20 Blood Pressure 157/101 H 151/96 H 166/103 H Pulse Oximetry 100 100 100 04/04/18 22:30 04/04/18 22:45 04/04/18 23:00 Temperature Pulse Rate 97 H 97 H 96 H Respiratory Rate 20 20 20 Blood Pressure 170/102 H 163/105 H 147/95 H Pulse Oximetry 100 100 100 04/04/18 23:15 04/04/18 23:30 04/04/18 23:45 Temperature Pulse Rate 96 H 96 H 95 H Respiratory Rate 20 20 20 Blood Pressure 163/100 H 163/105 H 144/93 H Pulse Oximetry 100 100 100 04/05/18 00:00 04/05/18 00:13 04/05/18 00:15 Temperature Pulse Rate 94 H 94 H Respiratory Rate 20 20 20 Blood Pressure 148/95 H 146/97 H Pulse Oximetry 100 100 100 04/05/18 00:30 04/05/18 00:45 04/05/18 01:00 Temperature Pulse Rate 94 H 94 H 93 H Respiratory Rate 20 20 20 Blood Pressure 149/95 H 152/96 H 158/98 H Pulse Oximetry 100 100 100 04/05/18 01:15 04/05/18 01:30 04/05/18 01:45 Temperature Pulse Rate 93 H 93 H 93 H Respiratory Rate 20 20 20 Blood Pressure 154/96 H 141/89 H 163/97 H Pulse Oximetry 100 100 100 04/05/18 02:00 04/05/18 02:15 04/05/18 02:30 Temperature Pulse Rate 93 H 93 H 91 H Respiratory Rate 20 20 20 Blood Pressure 154/94 H 162/100 H 124/83 Pulse Oximetry 100 100 100 04/05/18 02:45 04/05/18 03:00 04/05/18 03:15 Temperature Pulse Rate 89 88 88 Respiratory Rate 20 20 20 Blood Pressure 126/84 130/88 131/90 Pulse Oximetry 100 100 100 04/05/18 03:28 04/05/18 03:30 04/05/18 03:45 Temperature Pulse Rate 88 87 87 Respiratory Rate 20 20 20 Blood Pressure 153/98 H 141/93 H Pulse Oximetry 100 100 04/05/18 04:00 04/05/18 04:15 04/05/18 04:30 Temperature 97.4 F L Pulse Rate 88 88 87 Respiratory Rate 20 20 20 Blood Pressure 142/93 H 143/92 H 145/91 H Pulse Oximetry 100 100 100 04/05/18 04:40 04/05/18 04:46 04/05/18 04:49 Temperature Pulse Rate 87 91 H 92 H Respiratory Rate 20 23 20 Blood Pressure 120/79 93/43 L 72/42 L Pulse Oximetry 100 100 100 04/05/18 04:52 04/05/18 04:56 04/05/18 05:00 Temperature Pulse Rate 94 H 105 H 105 H Respiratory Rate 20 20 20 Blood Pressure 102/66 150/111 H 137/88 Pulse Oximetry 100 82 L 100 04/05/18 05:02 04/05/18 05:11 04/05/18 05:32 Temperature Pulse Rate 104 H 101 H 100 H Respiratory Rate 20 20 20 Blood Pressure 137/94 H 122/83 117/78 Pulse Oximetry 100 99 100 04/05/18 05:47 04/05/18 06:00 04/05/18 06:17 Temperature Pulse Rate 99 H 98 H 97 H Respiratory Rate 20 20 20 Blood Pressure 98/76 L 109/82 109/83 Pulse Oximetry 96 98 99 04/05/18 06:32 04/05/18 06:47 04/05/18 07:00 Temperature Pulse Rate 96 H 95 H 93 H Respiratory Rate 20 20 20 Blood Pressure 101/78 130/85 Pulse Oximetry 100 97 99 04/05/18 07:02 04/05/18 07:17 04/05/18 07:32 Temperature Pulse Rate 93 H 95 H 93 H Respiratory Rate 20 20 20 Blood Pressure 121/85 124/87 112/77 Pulse Oximetry 97 97 98 04/05/18 07:47 04/05/18 07:55 04/05/18 08:00 Temperature 97.4 F L Pulse Rate 93 H 93 H Respiratory Rate 20 20 20 Blood Pressure 103/81 Pulse Oximetry 98 99 98 04/05/18 08:02 04/05/18 08:17 04/05/18 08:32 Temperature Pulse Rate 93 H 93 H 91 H Respiratory Rate 20 20 20 Blood Pressure 104/79 110/80 102/67 Pulse Oximetry 99 98 98 04/05/18 08:35 04/05/18 08:47 04/05/18 09:00 Temperature Pulse Rate 91 H 89 88 Respiratory Rate 20 20 20 Blood Pressure 129/86 Pulse Oximetry 99 99 04/05/18 09:02 04/05/18 09:17 04/05/18 09:32 Temperature Pulse Rate 88 88 88 Respiratory Rate 20 20 20 Blood Pressure 122/84 125/84 124/86 Pulse Oximetry 99 99 99 04/05/18 09:47 04/05/18 10:00 04/05/18 10:02 Temperature Pulse Rate 87 87 87 Respiratory Rate 20 20 20 Blood Pressure 126/85 123/84 Pulse Oximetry 99 99 99 04/05/18 10:17 04/05/18 10:32 04/05/18 10:47 Temperature Pulse Rate 87 87 83 Respiratory Rate 20 20 20 Blood Pressure 121/85 119/85 126/87 Pulse Oximetry 99 99 98 04/05/18 11:00 04/05/18 11:02 04/05/18 11:17 Temperature Pulse Rate 83 83 83 Respiratory Rate 20 20 20 Blood Pressure 132/86 137/87 Pulse Oximetry 97 97 97 04/05/18 11:32 04/05/18 11:47 04/05/18 12:00 Temperature 97.4 F L Pulse Rate 78 81 82 Respiratory Rate 0 L 20 20 Blood Pressure 128/77 107/69 Pulse Oximetry 96 97 96 04/05/18 12:02 04/05/18 12:17 04/05/18 12:32 Temperature Pulse Rate 82 81 81 Respiratory Rate 13 20 0 L Blood Pressure 122/77 129/85 140/90 Pulse Oximetry 96 97 97 04/05/18 12:46 04/05/18 12:47 04/05/18 13:00 Temperature Pulse Rate 81 81 81 Respiratory Rate 0 L 1 L 0 L Blood Pressure 137/90 Pulse Oximetry 97 97 97 04/05/18 13:02 04/05/18 13:11 04/05/18 13:17 Temperature Pulse Rate 81 79 Respiratory Rate 0 L 20 0 L Blood Pressure 138/88 133/85 Pulse Oximetry 97 97 97 04/05/18 13:32 04/05/18 13:47 04/05/18 14:00 Temperature Pulse Rate 78 78 80 Respiratory Rate 0 L 0 L 20 Blood Pressure 113/66 133/85 Pulse Oximetry 97 97 100 04/05/18 14:02 04/05/18 14:17 04/05/18 14:32 Temperature Pulse Rate 81 82 85 Respiratory Rate 20 20 20 Blood Pressure 111/68 130/84 128/71 Pulse Oximetry 99 99 99 04/05/18 14:47 04/05/18 15:00 04/05/18 15:02 Temperature Pulse Rate 86 87 87 Respiratory Rate 20 20 20 Blood Pressure 126/73 124/76 Pulse Oximetry 99 99 99 04/05/18 15:17 04/05/18 15:32 04/05/18 15:47 Temperature Pulse Rate 85 86 87 Respiratory Rate 20 20 20 Blood Pressure 112/78 128/87 121/82 Pulse Oximetry 98 99 99 04/05/18 16:00 04/05/18 16:02 04/05/18 16:10 Temperature 97.4 F L Pulse Rate 86 86 Respiratory Rate 20 20 20 Blood Pressure 134/85 Pulse Oximetry 99 99 99 04/05/18 16:12 04/05/18 16:17 04/05/18 16:32 Temperature Pulse Rate 87 86 85 Respiratory Rate 20 20 20 Blood Pressure 132/66 144/87 H Pulse Oximetry 99 99 Intake & Output 04/04/18 04/05/18 04/05/18 18:59 06:59 18:59 Intake Total 2676 / 2676 2100 / 2100 2784 / 2784 Output Total 2300 / 2300 3050 / 3050 Balance 376 / 376 -950 / -950 2784 / 2784 Weight 69.1 kg Intake: IV 2476 / 2476 1500 / 1500 2384 / 2384 Cordarone Inj 450 MG In D5W Inj 107 / 107 250 / 250 250 / 250 241 ML @ 1 MG/MIN 33.33 mls/hr IV.CONT TITRATE PRN Rx#: [id number] DOPamine 800 MG/500 ML Premix 384 / 384 800 mg In 500 ml @ 3 MCG/KG/MIN 7.819 mls/hr IV.CONT TITRATE PRN Rx#:[id number] D5W Inj 1,000 ML @ 100 mls/hr 2000 / 2000 1000 / 1000 1000 / 1000 IV.CONT .Q10H LAURA Rx#:[id number] EPINEPHrine (1:1000) Inj 4 MG 87 / 87 250 / 250 250 / 250 In D5W Inj 246 ML @ 3 MCG/MIN 11.25 mls/hr IV.CONT TITRATE PRN Rx#:[id number] Neosynephrine Inj 160 MG In NS 272 / 272 500 / 500 Inj 484 ML @ 40 MCG/MIN 7.5 mls /hr IV.CONT TITRATE PRN Rx#: [id number] fentaNYL 10 mcg/mL Premix Drip 10 / 10 2,500 mcg In 250 ml @ 50 MCG/HR 5 mls/hr IV.SIG TITRATE PRN Rx #:[id number] Free Water Amount 200 / 200 600 / 600 400 / 400 Output: Urine Amount (Catheter) 2300 / 2300 3050 / 3050 Indwelling Temp Sensing 2300 / 2300 3050 / 3050 Catheter - Routine Neurological Exam nonresponsive (he is off all sedatives) does not respond to sternal rub Pupils 5 mm bilateral and nonreactive to light No EOM to occulocephalic maneuvers corneal reflexes are absent ciliospinal reflexes are absent bilaterally gag is absent No response to cold caloric testing no spontaneous respirations. Did not breath with apnea test Does not withdraw extremities to painful stimulation - Urinary Catheter Management Indwelling Temp Sensing Catheter Cath placed during this visit: yes Reason for continuing: Terminally ill/Comfort care Insertion date: 04/01/18 Insertion time: 03:00 1545 Cath placed during this visit: no Reason for continuing: Terminally ill/Comfort care Objective Laboratory Results - last 24 hr 04/05/18 04/05/18 04/05/18 05:44 05:44 08:57 WBC 3.7 L RBC 4.01 L Hgb 11.6 L Hct 35.4 L MCV 88.3 MCH 28.8 MCHC 32.7 RDW 16.6 Plt Count 35 L D MPV 8.6 Puncture Site Art line Patient Temperature 98.6 O2 Saturation 97 ABG pH 7.41 ABG pCO2 32 L ABG pO2 165 H ABG HCO3 20 L ABG O2 Content 16.2 ABG Base Excess -4.1 L ABG Methemoglobin 1.3 Hemoglobin 11.6 L Carboxyhemoglobin 1.1 O2 Delivery Device Ventilator Liter Flow Vent Setting 20/500/peep10 Inspired O2 40 Critical Value No Sodium 170 H* Potassium 3.3 L D Chloride 140 H Carbon Dioxide 21.3 Anion Gap 9 BUN 16 Creatinine 1.45 H Estimated GFR 48 L POC Glucose Random Glucose 339 H D Calcium 7.6 L 04/05/18 04/05/18 04/05/18 11:21 11:22 11:28 WBC RBC Hgb Hct MCV MCH MCHC RDW Plt Count MPV Puncture Site Art line Patient Temperature 98.6 O2 Saturation 95 ABG pH 7.17 L* ABG pCO2 67 H* ABG pO2 113 ABG HCO3 24 ABG O2 Content 15.8 ABG Base Excess -3.7 L ABG Methemoglobin 1.3 Hemoglobin 11.8 L Carboxyhemoglobin 0.8 O2 Delivery Device Insufflator Liter Flow 13.00 Vent Setting Inspired O2 Critical Value Yes Sodium Potassium Chloride Carbon Dioxide Anion Gap BUN Creatinine Estimated GFR POC Glucose 59 L 45 L* Random Glucose Calcium 02/22/19 02/22/19 11:32 16:27 WBC RBC Hgb Hct MCV MCH MCHC RDW Plt Count MPV Puncture Site Patient Temperature O2 Saturation ABG pH ABG pCO2 ABG pO2 ABG HCO3 ABG O2 Content ABG Base Excess ABG Methemoglobin Hemoglobin Carboxyhemoglobin O2 Delivery Device Liter Flow Vent Setting Inspired O2 Critical Value Sodium Potassium Chloride Carbon Dioxide Anion Gap BUN Creatinine Estimated GFR POC Glucose 179 H 173 H Random Glucose Calcium Microbiology 04/01/18 06:18 Aerobic Blood Culture - Preliminary Blood - Peripheral No growth in 4 days Anaerobic Blood Culture - Preliminary No growth in 4 days 04/01/18 06:00 Aerobic Blood Culture - Preliminary Blood - Peripheral No growth in 4 days Anaerobic Blood Culture - Preliminary No growth in 4 days Review/Management - Review/Management Plan: cerebellar and subarachnoid and intraventricular hemorrhage . Complete absence of all brainstem reflexes off all sedation. Exam is consistent with brain .
[2018-04-06] MEDS: Oral Hygiene Kit OROPHARYNG SCH ×3 (00:21→11:44)
[2018-04-06] MEDS: Dextrose 5% in Water Inj 1,000 ML IV.CONT SCH ×2 (00:21→11:02)
--- NOTE | 2018-04-06 07:45 | P.DN ---
Pronouncement Note - Date and Time of Date of : 04/05/18 Time of : 16:55 - Contributing Factors (1) Intracerebral hemorrhage (2) Respiratory failure (3) Ischemic hepatitis (4) LARS (acute kidney injury) (5) Coagulopathy (6) Hypernatremia (7) Hypokalemia (8) Hypophosphatemia (9) Cardiac arrest with ventricular fibrillation (10) Anoxia of brain Contributing factors: Brainstem hemorrhagic stroke
--- NOTE | 2018-04-06 07:54 | P.DN ---
- Provider Primary care physician: UNKNOWN Attending physician on admission: Octavoi Mckeon Consults: 04/01/18 05:13 Consult to Neurology Routine Consulting Provider: Vargas Rios Reason for Consultation: brain examination Notified:: Service Spoke with:: Eun Date Notified:: 04/01/18 Time Notified:: 05:35 Ordering Provider: NIHCOLE 04/01/18 12:26 Consult to Palliative Care Routine Consulting Provider: Ayush Oshea Reason for Consultation: Non-survivable hemorrhagic brainstem CVA, prolonged cardiac arrest. I already discussed goals of care with family, no decisions made regarding code status as of yet. Notified:: Service Spoke with:: Joana Date Notified:: 04/01/18 Time Notified:: 13:03 Ordering Provider: YANETH Pronouncing clinician: Octavio Mckeon - Admitting Diagnosis (1) Brain (2) Hemorrhagic stroke (3) Ventricular fibrillation (4) Intracerebral hemorrhage (5) Respiratory failure - Diagnosis at Time of (1) Brain Diagnosis: Principal - Date and Time Date of admission: 04/01/18 02:06 Date of : 04/05/18 Time of : 16:55 - Summary Brief History: 67-year-old Cypriot-speaking male with past medical history of hemorrhagic stroke, essential hypertension, hyperlipidemia, GERD, iron deficiency anemia, depression who presented to [facility] after V. fib cardiac arrest. Apparently he was found unresponsive at the correction and CPR was initiated. He was in V. fib upon [facility] arrival. Per report from ED physician, patient received 5 doses of epinephrine and at least 5 shocks per EVAC and amiodarone 300 mg IV bolus. Upon arrival to the [place] emergency department, he remained in V. fib and was given 2 doses of epinephrine 5 mg IV each, amiodarone 100 mg IV, and additional defibrillation. He then had return of spontaneous circulation. He had an additional cardiac arrest in the emergency department which again responded to epinephrine. Transferred to [facility] was requested. I was informed that total duration of ACLS was 40 minutes. He was placed on epinephrine and phenylephrine prior to transfer. Records indicate that he has been a resident at [facility] since and that he was transferred there from another correction facility. He is wheelchair-bound at baseline. Records indicate that he is full code. There is no detailed advanced directive. 04/05/2018: Patient's neurological exam consistent with diagnosis of brain . Confirmed by 2 physician examination and documentation. Result Diagrams: 04/05/18 05:44 04/05/18 05:44 Significant Findings: Abnormal Lab Results 04/05/18 04/05/18 04/05/18 08:57 11:21 11:22 Puncture Site Art line Patient Temperature 98.6 O2 Saturation 97 ABG pH 7.41 ABG pCO2 32 L ABG pO2 165 H ABG HCO3 20 L ABG O2 Content 16.2 ABG Base Excess -4.1 L ABG Methemoglobin 1.3 Hemoglobin 11.6 L Carboxyhemoglobin 1.1 O2 Delivery Device Ventilator Liter Flow Vent Setting 20/500/peep10 Inspired O2 40 Critical Value No POC Glucose 59 L 45 L* 04/05/18 04/05/18 04/05/18 11:28 11:32 16:27 Puncture Site Art line Patient Temperature 98.6 O2 Saturation 95 ABG pH 7.17 L* ABG pCO2 67 H* ABG pO2 113 ABG HCO3 24 ABG O2 Content 15.8 ABG Base Excess -3.7 L ABG Methemoglobin 1.3 Hemoglobin 11.8 L Carboxyhemoglobin 0.8 O2 Delivery Device Insufflator Liter Flow 13.00 Vent Setting Inspired O2 Critical Value Yes POC Glucose 179 H 173 H Imaging: Chest X-Ray 04/01/18 02:59 CONCLUSION: 1. Interval placement of a left IJ central venous catheter with the tip projecting over the central venous system. No pneumothorax. 2. Persistent bilateral prominent perihilar airspace disease. Head CT 04/01/18 03:08 CONCLUSION: 1. 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 Small amount of subarachnoid hemorrhage. Associated ventriculomegaly. 2. Periventricular edema with loss of the teresa-white differentiation may be related to diffuse anoxia. . . Hospital Course: 67-year-old Cypriot-speaking male with past medical history of hemorrhagic stroke, essential hypertension, hyperlipidemia, GERD, iron deficiency anemia, depression who presented to [facility] after V. fib cardiac arrest. Apparently he was found unresponsive at the correction and CPR was initiated. He was in V. fib upon [facility] arrival. Per report from ED physician, patient received 5 doses of epinephrine and at least 5 shocks per EVAC and amiodarone 300 mg IV bolus. Upon arrival to the [place] emergency department, he remained in V. fib and was given 2 doses of epinephrine 5 mg IV each, amiodarone 100 mg IV, and additional defibrillation. He then had return of spontaneous circulation. He had an additional cardiac arrest in the emergency department which again responded to epinephrine. Transferred to [facility] was requested. I was informed that total duration of ACLS was 40 minutes. He was placed on epinephrine and phenylephrine prior to transfer. Records indicate that he has been a resident at nursing [facility] since and that he was transferred there from another correction facility. He is wheelchair-bound at baseline. Records indicate that he is full code. There is no detailed advanced directive. 04/05/2018: Patient's neurological exam consistent with diagnosis of brain . Confirmed by 2 physician examination and documentation. - Additional Data Confirmation of as documented by pronouncing clinician: no pulse, no respirations, no heart sounds, pupils fixed and dilated Family: attempt made Attending/PCP notified?: Yes Was code activated?: No Autopsy requested?: No deportation examiner notified?: No Organ bank notified?: Yes Advance directives: No Hospice patient?: No
[2018-04-06] MEDS: Chlorhexidine 0.12% Oral Kit 15 ML UDC OROPHARYNG SCH (08:43)
[2018-04-06] MEDS: Pantoprazole Inj 40 MG Vial IV.PUSH SCH (09:59)
[2018-04-06] MEDS: Senna/Docusate Sodium 8.6/50 MG Tablet PO SCH (09:59)
[2018-04-06 16:07] VITALS: BP 81/51; PULSE 98; TEMP 95.5; O2SAT 100
== END 2018-04-06 19:00 | disposition expired | DRG 64 ==
LOC: NEDDLT 23:34 → HCVI 04-01 02:06 → N03 04-03 08:34
PROVIDERS: ADMIT Emergency Medicine; ATTEND Emergency Medicine
CPT/HCPCS: 36410; 36556; 36600; 51702; 70450; 71010; 71045; 80048; 80053; 80074; 82040; 82805; 82948; 82962; 83520; 83605; 83735; 83880; 84100; 84132; 84484; 85025; 85027; 85384; 85610; 85730; 87040; 87086; 87641; 90774; 90775; 90784; 92950; 93005; 93306; 94002; 94003; 94640; 94656; 94657; 94665; 94770; 95819; 96374; 96375; 99291; C8952; C9113; J0171; J0282; J0461; J1265; J1817; J1940; J2370; J3010; J3480; J7040; J7050; J7060; J7070; J7120